=== PATIENT | male | born 1940 | race Caucasian/White ===

== ENCOUNTER 2017-07-23 08:05 | Outpatient (POV) | payer MEDICARE, SELFPAY | END 2017-07-23 10:41 | disposition home or self-care (01) | PROVIDERS: Visit Provider Podiatrist | DX: I73.9 Peripheral vascular disease, unspecified (principal); M76.821 Posterior tibial tendinitis, right leg; E11.42 Type 2 diabetes mellitus with diabetic polyneuropathy | CPT/HCPCS: 99212 ==

== ENCOUNTER 2017-09-03 10:30 | Outpatient (RCR) | payer MEDICARE, SELFPAY | END 2017-09-14 | LOC: PT 10:30 | PROVIDERS: Visit Provider Podiatrist | DX: M76.821 Posterior tibial tendinitis, right leg (principal) | CPT/HCPCS: G8978; G8979; G8980; 97010; 97014; 97016; 97033; 97035; 97110; 97162; G0283 ==

== ENCOUNTER → 2017-10-10 08:11 | Outpatient (CLI) | payer MEDICARE, SELFPAY ==
--- NOTE | 2017-10-10 08:17 | US_ITS ---
HISTORY: ITS.REASON: RT UPPER QUAD PAIN ORDERING PHYSICIAN: Thang Hou MD PATIENT AGE: 77 years COMPARISON: None FINDINGS: PANCREAS: Poorly demonstrated due to overlying bowel LIVER: Limited images. Probable small hepatic cyst anteriorly at 12 mm. RIGHT KIDNEY: Unremarkable. Normal size and echogenicity. No hydronephrosis 2.7 cm cyst lower pole right kidney GALLBLADDER: Images of the gallbladder very limited. Gallbladder wall thickening with a small amount pericholecystic fluid. Gallstones are present. Common bile duct is normal at 4 mm. IMPRESSION: Thickened gallbladder wall with small amount pericholecystic fluid with cholelithiasis. Cholecystitis is considered. Correlation with exam needed regarding right upper quadrant pain and tenderness
== END ==
PROVIDERS: Visit Provider Family Medicine
DX: R10.11 Right upper quadrant pain (principal)
CPT/HCPCS: 76705

== ENCOUNTER → 2017-10-16 15:29 | Outpatient (CLI) | payer MEDICARE, SELFPAY ==
[2017-10-16 16:04] LABS: Basophils # 0.1 K/mm3 (0-0.2); Basophils % 0.3 % (0.1-2.0); Eosinophils # 0.2 K/mm3 (0.0-0.4); Eosinophils % 1.5 % (0.1-12.0); Hematocrit 43.5 % (42.0-52.0); Hemoglobin 13.6 g/dL (14.1-18.0); Lymphocytes # 2.5 K/mm3 (0.7-4.5); Lymphocytes % 15.5 K/mm3 (10-50); Mean Corpuscular HGB Conc 31.3 g/dL (31.8-35.4); Mean Corpuscular Hemoglobin 27.7 pg (27.0-31.2); Mean Corpuscular Volume 88.4 fl (80-94); Mean Platelet Volume 7.2 fl (7.4-10.4); Monocytes # 0.7 K/mm3 (0.1-1.0); Monocytes % 4.2 % (1.7-9.3); Neutrophils # 12.5 K/mm3 (1.8-7.8); Neutrophils % 78.5 % (37.0-80.0); Platelet Count 516 K/mm3 (142-424); Red Blood Count 4.92 M/mm3 (4.60-6.20); Red Cell Distribution Width 14.1 % (11.5-17.5); White Blood Count 15.9 K/mm3 (4.8-10.8)
[2017-10-16 16:06] LABS: MANUAL DIFFERENTIAL MANUAL DIFFERENTIAL (MANUAL DIFF)
[2017-10-16 18:22] LABS: Alanine Aminotransferase 36 U/L (12-78); Albumin Level 2.8 gm/dL (3.4-5.0); Albumin/Globulin Ratio 0.7 (1.1-1.8); Alkaline Phosphatase 100 U/L (46-116); Amylase 133 U/L (25-125); Aspartate Amino Transferase 27 U/L (15-37); Bilirubin,Total 0.2 mg/dL (0.2-1.0); Blood Urea Nitrogen 28 mg/dL (7-18); Calcium 8.9 mg/dL (8.5-10.1); Carbon Dioxide 28 mmol/L (21.0-32.0); Chloride 107 mmol/L (98-107); Creatinine,Serum 1.85 mg/dL (0.70-1.30); Estimated Glomerular Filt Rate 36 ml/min (>60); GFR (African American) 43 ML/MIN (>60); Globulin 3.9 gm/dl (1.3-3.2); Glucose 70 mg/dL (74-106); Sodium 142 mmol/L (136-145); Total Protein,Serum 6.7 gm/dL (6.4-8.2)
[2017-10-16 18:46] LABS: Lymphocytes % 19 % (10-50); Monocytes % 4 % (2-9); Neutrophils % 77 % (42-76); Platelet Estimate Moderate Increase; RBC Morphology Normal; Total Cells Counted 100
== END ==
PROVIDERS: PCP Family Medicine; Visit Provider Surgery
DX: K80.12 Calculus of gallbladder with acute and chronic cholecystitis without obstruction (principal)
CPT/HCPCS: 80053; 82150; 85007; 85025; 93005

== ENCOUNTER → 2017-10-22 07:11 | Outpatient (CLI) | payer MEDICARE, SELFPAY ==
[2017-10-22 07:42] LABS: Basophils # 0.1 K/mm3 (0-0.2); Basophils % 0.5 % (0.1-2.0); Eosinophils # 0.2 K/mm3 (0.0-0.4); Eosinophils % 1.4 % (0.1-12.0); Hematocrit 44.7 % (42.0-52.0); Hemoglobin 14.3 g/dL (14.1-18.0); Lymphocytes # 2.4 K/mm3 (0.7-4.5); Lymphocytes % 17.5 K/mm3 (10-50); Mean Corpuscular HGB Conc 31.9 g/dL (31.8-35.4); Mean Corpuscular Hemoglobin 28.5 pg (27.0-31.2); Mean Corpuscular Volume 89.4 fl (80-94); Mean Platelet Volume 7.4 fl (7.4-10.4); Monocytes # 0.8 K/mm3 (0.1-1.0); Monocytes % 5.8 % (1.7-9.3); Neutrophils # 10.3 K/mm3 (1.8-7.8); Neutrophils % 74.7 % (37.0-80.0); Platelet Count 344 K/mm3 (142-424); Red Cell Distribution Width 14.4 % (11.5-17.5); White Blood Count 13.7 K/mm3 (4.8-10.8)
== END ==
PROVIDERS: PCP Family Medicine; Visit Provider Surgery
DX: K80.12 Calculus of gallbladder with acute and chronic cholecystitis without obstruction (principal)
CPT/HCPCS: 36415; 85025

== ENCOUNTER 2017-10-26 14:23 | Inpatient (IN) | payer MEDICARE, SELFPAY ==
[2017-10-23 13:46] VITALS: BMI 26.2
[2017-10-26] VITALS (22 sets, daily range): BP systolic 116–167; BP diastolic 63–89; PULSE 66–76; RESP 12–18; TEMP 36.4–43; O2SAT 92–97; BMI 26.6
--- NOTE | 2017-10-26 10:52 | P.PN_ITS ---
[facility] Anesthesia Checklist - Patient Identification Patient Identification: Arm Band, Verbal (Name & ) - Structural Data Admitted From: Home Planned Operative Procedure/s: lap choly Consent for Planned Operative Procedure(s) Verified: Yes Verified Documents: Surgical Consent - NPO Status Verified Time NPO: 00:00 - Chart Verification Results Verified: CBC, BMP, ECG - Additional verifications Patient : No Anesthesia Reactions: No Hx Blood Transfusions: No Blood Transfusion Reaction: No Cephalosporin Allergy: No Previous Colonoscopy: No - Cardiovascular Assessment Heart Sounds: S1 & S2 Pulse Strength: Baseline Pulse Rhythm: Regular Peripheral Edema: No - Airway Assessment C-Spine Mobility Assessed: Yes TMJ Mobility Assessed: Yes Dentition: Good Dentition - Neurological Assessment Level of Consciousness: Awake, Alert, Appropriate Hx Seizures: No Numbness or tingling in extremities: No - Anesthesia Plan Anesthesia Risk discussed: Yes ASA Class: III Anesthesia Type: General [facility] Anesthesia HX I have reviewed the patient's past medical history: Yes Medical History: Reports:: Diabetes Mellitus Type 2 (meds only), Hypertension, Nephritis Denies:: Cancer, Diabetes Mellitus Type 1, MRSA Other Medical History: Reports: Arthritis Laterality Cases: Bilateral: Arthroscopy Knee Other Surgeries: Yes: Colonoscopy, EGD, Other (back) Amputation: No Fractures: No *Family Hx:: Unable to obtain
[2017-10-26 11:06] LABS: POC Glucose,Bedside 135 mg/dL
--- NOTE | 2017-10-26 11:15 | SUR.PREOP ---
pt ambulated w/assist to br, unable to void at this time
--- NOTE | 2017-10-26 14:02 | SUR.OPER ---
Addendum entered by Andree Briseno RN 10/26/17 14:17: 1415-FAMILY UPDATED PER AGUSTÍN ZULETA Original Note: 1355-FAMILY UPDATED AT THIS TIME PER AGUSTÍN TO
--- NOTE | 2017-10-26 14:51 | P.OP_ITS ---
Date of procedure: 10/26/17 Pre-op Diagnosis:: Acute and chronic calculus cholecystitis Post-op diagnosis:: other (Necrotic/gangrenous calculus cholecystitis) Procedure performed:: Laparoscopic cholecystectomy Surgeon:: Brennen Chopra MD Conference Center Manager(s):: Dr. Maximilian Zhao CHANGE MANAGEMENT MANAGER:: Bubba Castaneda Anesthesia: GETA Estimated blood loss (mL): 50 Operative findings:: Severe cholecystitis with fulminant necrosis/gangrene Entire right upper quadrant severely inflamed Domo-Mcqueen drains placed The dissection was very difficult throughout the procedure. Converting to an open cholecystectomy was considered; however, the decision was made to proceed laparoscopically because progress was continually made and (more importantly) converting to open was not felt to likely increase safety. The gallbladder was transected at the infundibulum and just to the left of this transection site a small area of continual bile leak was noted. This was felt to most likely represent the cystic duct with severe adherence to the posterior tissue as opposed to hepatic duct or common bile duct. This area was carefully dissected and clips were placed. The remaining stump after infundibulum transection was controlled with Endoloops ?2 Operative note:: After informed consent was obtained, the patient was taken to the operating room and placed in the supine position. General anesthesia was induced and his abdomen was prepped and draped in a sterile fashion. After infiltration with local anesthetic a supraumbilical incision was made. A Veress needle was placed in position. The abdomen was insufflated. A 12 mm optical trocar was placed in the subxiphoid position and 2 additional 5 mm trocars placed in the right upper quadrant. Evaluation revealed severe inflammation and fat stranding. The gallbladder was initially not visible. After extensive dissection and apparent necrotic/gangrenous gallbladder was carefully elevated. The dissection was exceptionally difficult, but conversion to open was not deemed to increase safety. The infundibulum was not easily identifiable. Careful dissection proceeded and the infundibulum was transected. The occipital portion was controlled with Endoloops (?2). Just to the left side of this transection site a small area of bilious leak was noted and careful inspection revealed what was felt to be most likely an adherent cystic duct. Placement of a cholangiogram catheter was not deemed safe and this tissue was carefully elevated as clips were placed. Close follow-up of the patient's liver function tests/bilirubin will be ongoing and consideration of hepatobiliary scan will also be ongoing. The gallbladder was removed from the liver margin utilizing harmonic joe. It was placed in a retrieval bag and removed through the subxiphoid trocar site. 2 separate #10 Domo-Mcqueen drains were placed in the gallbladder fossa and exited through the right upper quadrant trocar sites. Pneumoperitoneum was released as the remaining trocars were removed. Fascia at the subxiphoid trocar site was reapproximated with interrupted Ethibond. Skin was closed with 4-0 Monocryl. The drains were secured with nylon and dressings were applied. The patient's anesthetic agents were reversed and he was extubated prior to transfer to recovery. Pathology: other (Bladder and contents) Condition: stable Disposition: floor (The patient will be admitted to the MedSurg unit for ongoing postoperative care) Specimens:: Gallbladder and contents Complications:: No immediate
--- NOTE | 2017-10-26 14:56 | HMH.ANESI ---
[facility] Anesthesia Record Part I Intake, IV Amount: 2,800 Estimated blood loss (mL): 50 Urine output (mL): 200 Blood Pressure: 133/75 SaO2: 97 Pulse Rate: 75 Respiratory Rate: 12 Temperature: 98.3 F Patient is:: Drowsy, Stable Stable to PACU at:: 14:55
--- NOTE | 2017-10-26 14:57 | HMH.ANESII ---
[facility] Anesthesia Record Part II Discharge Time: 15:25 Destination: floor PACU nurse assessment reviewed?: Yes Patient Condition:: Good Anesthesia Complications:: None
[2017-10-26 16:23] LABS: Microscopic, Urine URINE MICROSCOPIC (MICROSCOPIC)
[2017-10-26 16:26] LABS: Appearance,Urine CLOUDY (Clear); Bilirubin,Urine Negative (Negative); Blood, Urine TRACE-L (Negative); Color,Urine YELLOW (Yellow); Glucose,Urine (UA) Negative (Negative); Ketones,Urine Negative (Negative); Leukocyte Esterase,Urine 1+ (Negative); Nitrate,Urine Negative (Negative); Protein,Urine 3+ (Negative); Specific Gravity, Urine >= 1.030 (1.005-1.030); Urobilinogen,Urine 0.2 EU/dl (0.2)
[2017-10-26 17:06] LABS: RBC,Urine Occasional #/hpf (0-3); WBC,Urine 50-100 #/hpf (0-3)
[2017-10-26 17:07] LABS: Bacteria,Urine 2+ /lpf; Squamous Epithelial Cell,Urine Occasional #/hpf (0-5)
--- NOTE | 2017-10-26 17:46 | SUR.PHASEI ---
10/26/17 1556 Pt transported to room 215 per AGUSTÍN Evans and JannyRN at this time. Pt family at bedside. Pt left in care of AGUSTÍN Vasquez at bedside/stable. Pt awakens and talks with staff/family and returns to sleeping. Pt transported on O2 at 2lpm per nc d/t drowsiness, even though sats stable 92-94% on room air sat checks. Pt received no medication while in PACU.
[2017-10-26 22:28] LABS: POC Glucose,Bedside 215 mg/dL
[2017-10-27] VITALS (7 sets, daily range): BP systolic 154–172; BP diastolic 75–90; PULSE 68–75; RESP 16–20; TEMP 36.6–36.8; O2SAT 93–96
--- NOTE | 2017-10-27 06:07 | PC.NURSE ---
no changes noted since previous assessment, pt has not slept well this shift, pt c/o pain which was relieved with PRN pain medication per MAR, rhonchi noted but cleared with cough and incentive spirometer well, by maintaining O2 sats at or above 90 on 2L NC, bowel sounds are hypoactive, [address] draining sanguineous fluid, jameson in place draining clear yellow urine, bowel sounds are hypoactive, no acute distress noted at this time, will continue to monitor.
[2017-10-27 06:27] LABS: Basophils % 0.1 % (0.1-2.0); Eosinophils % 0.1 % (0.1-12.0); Hematocrit 39.9 % (42.0-52.0); Hemoglobin 12.8 g/dL (14.1-18.0); Lymphocytes # 0.9 K/mm3 (0.7-4.5); Lymphocytes % 7.1 K/mm3 (10-50); MANUAL DIFFERENTIAL MANUAL DIFFERENTIAL (MANUAL DIFF); Mean Corpuscular HGB Conc 32.2 g/dL (31.8-35.4); Mean Corpuscular Hemoglobin 28.6 pg (27.0-31.2); Mean Platelet Volume 7.9 fl (7.4-10.4); Monocytes # 0.3 K/mm3 (0.1-1.0); Monocytes % 2.6 % (1.7-9.3); Neutrophils # 11.7 K/mm3 (1.8-7.8); Neutrophils % 90.3 % (37.0-80.0); Platelet Count 184 K/mm3 (142-424); Red Blood Count 4.49 M/mm3 (4.60-6.20); Red Cell Distribution Width 14.3 % (11.5-17.5); White Blood Count 12.9 K/mm3 (4.8-10.8)
[2017-10-27 06:31] LABS: Alanine Aminotransferase 215 U/L (12-78); Albumin Level 2.4 gm/dL (3.4-5.0); Albumin/Globulin Ratio 0.6 (1.1-1.8); Alkaline Phosphatase 164 U/L (46-116); Anion Gap 12.3 mEq/L (5-15); Aspartate Amino Transferase 243 U/L (15-37); Bilirubin,Total 1.7 mg/dL (0.2-1.0); Blood Urea Nitrogen 25 mg/dL (7-18); Calcium 8.4 mg/dL (8.5-10.1); Carbon Dioxide 27 mmol/L (21.0-32.0); Chloride 105 mmol/L (98-107); Creatinine Clearance Estimated 44 mL/min (0-300); Creatinine,Serum 1.79 mg/dL (0.70-1.30); Estimated Glomerular Filt Rate 37 ml/min (>60); GFR (African American) 45 ML/MIN (>60); Globulin 3.8 gm/dl (1.3-3.2); Glucose 201 mg/dL (74-106); Potassium 4.3 mmoL/L (3.5-5.1); Sodium 140 mmol/L (136-145); Total Protein,Serum 6.2 gm/dL (6.4-8.2)
[2017-10-27 06:51] LABS: POC Glucose,Bedside 187 mg/dL
[2017-10-27 07:37] LABS: Lymphocytes % 5 % (10-50); Monocytes % 4 % (2-9); Neutrophils % 89 % (42-76); Platelet Estimate Normal; RBC Morphology Normal; Total Cells Counted 100
--- NOTE | 2017-10-27 08:46 | P.PN_ITS ---
Subjective Patient reports: feels better Exam Vital signs and Labs for Last 24 Hours: Temp Pulse Resp BP Pulse Ox 97.8 F 75 20 158/80 96 10/27/17 07:31 10/27/17 07:31 10/27/17 07:31 10/27/17 07:31 10/27/17 07:31 Laboratory Results - last 24 hr 10/26/17 10:52: POC Glucose 135 10/26/17 15:00: Urine Color Yellow, Urine Appearance Cloudy, Urine pH 6.0, Ur Specific Economy >= 1.030, Urine Protein 3+, Urine Glucose (UA) Negative, Urine Ketones Negative, Urine Blood Trace-l, Urine Nitrate Negative, Urine Bilirubin Negative, Urine Urobilinogen 0.2, Ur Leukocyte Esterase 1+ A, Urine RBC Occasional, Urine WBC 50-100, Ur Squamous Epith Cells Occasional, Urine Bacteria 2+ 10/26/17 22:00: POC Glucose 215 10/27/17 05:40: WBC 12.9 H, RBC 4.49 L, Hgb 12.8 L, Hct 39.9 L, MCV 89.0, MCH 28.6, MCHC 32.2, RDW 14.3, Plt Count 184, MPV 7.9, Neut % (Auto) 90.3 H, Lymph % (Auto) 7.1 L, [place] % (Auto) 2.6, Eos % (Auto) 0.1, Baso % (Auto) 0.1, Neut # ( Auto) 11.7 H, Lymph # (Auto) 0.9, [place] # (Auto) 0.3, Eos # (Auto) 0.0, Baso # ( Auto) 0.0, Total Counted 100, Neutrophils % (Manual) 89 H, Band Neutrophils % 1.0, Lymphocytes % (Manual) 5 L, Monocytes % (Manual) 4, Metamyelocytes % 1.0, Platelet Estimate Normal, RBC Morphology Normal 10/27/17 05:40: Sodium 140, Potassium 4.3, Chloride 105, Carbon Dioxide 27, Anion Gap 12.3, BUN 25 H, Creatinine 1.79 H, Estimated Creat Clear 44, Estimated GFR 37 L, Est GFR ( Amer) 45 L, Glucose 201 H, Calcium 8.4 L, Total Bilirubin 1.7 H, AST 243 H, ALT 215 H, Alkaline Phosphatase 164 H, Total Protein 6.2 L, Albumin 2.4 L, Globulin 3.8 H, Albumin/Globulin Ratio 0.6 L 10/27/17 06:41: POC Glucose 187 I & O for Last 24 hours: Intake & Output 10/24/17 10/25/17 10/26/17 10/27/17 11:59 11:59 11:59 11:59 Intake Total 4503 / 4503 Output Total 960 / 960 Balance 3543 / 3543 Weight 193 lb 196 lb 3 oz Microbiology Reports for the Last 24 Hours: Microbiology 10/26/17 15:00 Urine,Catheterized Urine Culture - Preliminary Gram Positive Cocci - Constitutional no acute distress - *Routine Respiratory Exam Absent: respiratory distress - *Routine Cardiovascular Exam Present: RRR - *Routine Abdominal Exam Present: soft Comments: ABDIRIZAK drains with serosanguinous output Progress Note: A&P (1) Acute calculous cholecystitis Status: Acute Assessment and plan: Gangrenous/necrotic cholecystitis Continue abx Continue Jameson catheter for now for improved output accuracy Ambulate Repeat CBC/CMP in AM Current Visit: Yes (2) UTI (urinary tract infection) Status: Acute Assessment and plan: continue abx continue jameson for now for decompression...likely remove tomorrow Current Visit: Yes
--- NOTE | 2017-10-27 15:02 | P.CONPHA_ITS ---
[facility] Pharmacy VTE Monitoring - Patient Demographics Admission date: 10/26/17 Report Date: 10/27/17 Time: 15:02 Allergies/Adverse Reactions: Patient Allergies levofloxacin Allergy (Mild, Verified 10/23/17 13:34) I-HIVES/RASH nitrofurantoin Allergy (Unknown, Verified 10/23/17 13:34) Penicillins Allergy (Unknown, Verified 10/23/17 13:34) I-RASH Height: 1.83 m Weight: 88.989 kg Patient Problems: Current Active Problems Acute calculous cholecystitis (Acute) UTI (urinary tract infection) (Acute) - VTE Risk Labs: VTE Related Lab Results Hgb 12.8 g/dL (14.1-18.0) L 10/27/17 05:40 Hct 39.9 % (42.0-52.0) L 10/27/17 05:40 Plt Count 184 K/mm3 (142-424) 10/27/17 05:40 BUN 25 mg/dL (7-18) H 10/27/17 05:40 Creatinine 1.79 mg/dL (0.70-1.30) H 10/27/17 05:40 Estimated Creat Clear 44 mL/min (0-300) 10/27/17 05:40 Was VTE Risk Assessment Performed: Yes VTE Score: 3 VTE Risk Level: Low Risk - Prophylaxis VTE Prophylaxis Ordered?: Yes Types of VTE Prophylaxis: IPCS Knee High Location of Applied Device: Bilateral Lower Extremeties Pharmacologic Type: Enoxaparin
[2017-10-27 21:21] LABS: POC Glucose,Bedside 254 mg/dL
[2017-10-27 21:21] LABS: POC Glucose,Bedside 239 mg/dL
[2017-10-27 21:21] LABS: POC Glucose,Bedside 269 mg/dL
[2017-10-28] VITALS (8 sets, daily range): BP systolic 157–200; BP diastolic 80–110; PULSE 68–77; RESP 14–20; TEMP 36.6–36.9; O2SAT 94–95
--- NOTE | 2017-10-28 03:09 | PC.NURSE ---
PT RESTED WELL THIS SHIFT. PT BOWEL SOUNDS ACTIVE IN ALL 4 QUADS, 4 INCISIONS NOTED TO ABM, DX CDI, SMALL AMOUNT OF BLOOD NOTED AROUND ABDIRIZAK DRAINS, SEROSANGUINEOUS WITH SCANT AMOUNT OF BROWN FLUID. PT IS TOLERATING RA WELL, SATS ARE IN 90'S. POSTERIOR EXPIRATORY RHONCHI NOTED. THOMPSON PATENT, DRAINING CLEAR YELLOW URINE. PT AMBULATED LENGTH OF HALLWAY WELL WITH STANDBY ASSIST. PT STATED HE PAIN IS BETTER TODAY. VSS. NO ACUTE DISTRESS NOTED AT THIS TIME. WILL CONT. TO MONITOR.
--- NOTE | 2017-10-28 04:37 | PC.NURSE ---
Addendum entered by Tonya Cochran RN 10/28/17 04:40: AT 0425 SRNA NOTIFIED RN OF AUTOMATIC BP OF 201/108. RN OBTAINED MANUAL CUFF BP OF 200/110. DR. TOLENTINO NOTIFIED OF BP AT 0431. LABETALOL 10MG IV ONCE ORDERED. Original Note: AT 0425 SRNA NOTIFIED RN OF AUTOMATIC BP OF 201/108. RN OBTAINED MANUAL CUFF BP OF 200/110. DR. TOLENTINO NOTIFIED OF BP AT 0431. IS TO ENTER PT HOME MEDS FOR BP.
[2017-10-28 06:28] LABS: Basophils % 0.1 % (0.1-2.0); Eosinophils % 0.2 % (0.1-12.0); Hematocrit 39.5 % (42.0-52.0); Hemoglobin 12.7 g/dL (14.1-18.0); Lymphocytes % 7.3 K/mm3 (10-50); Mean Corpuscular Hemoglobin 28.9 pg (27.0-31.2); Mean Corpuscular Volume 90.3 fl (80-94); Mean Platelet Volume 8.2 fl (7.4-10.4); Monocytes # 0.7 K/mm3 (0.1-1.0); Neutrophils # 11.4 K/mm3 (1.8-7.8); Neutrophils % 87.4 % (37.0-80.0); Platelet Count 153 K/mm3 (142-424); Red Blood Count 4.38 M/mm3 (4.60-6.20); Red Cell Distribution Width 14.3 % (11.5-17.5); White Blood Count 13.1 K/mm3 (4.8-10.8)
[2017-10-28 06:31] LABS: MANUAL DIFFERENTIAL MANUAL DIFFERENTIAL (MANUAL DIFF)
[2017-10-28 06:40] LABS: Albumin Level 2.2 gm/dL (3.4-5.0); Albumin/Globulin Ratio 0.8 (1.1-1.8); Alkaline Phosphatase 203 U/L (46-116); Anion Gap 12.9 mEq/L (5-15); Bilirubin,Total 1.2 mg/dL (0.2-1.0); Blood Urea Nitrogen 27 mg/dL (7-18); Calcium 8.2 mg/dL (8.5-10.1); Carbon Dioxide 26 mmol/L (21.0-32.0); Chloride 105 mmol/L (98-107); Creatinine Clearance Estimated 54 mL/min (0-300); Creatinine,Serum 1.45 mg/dL (0.70-1.30); Estimated Glomerular Filt Rate 47 ml/min (>60); GFR (African American) 57 ML/MIN (>60); Globulin 2.9 gm/dl (1.3-3.2); Glucose 204 mg/dL (74-106); Potassium 3.9 mmoL/L (3.5-5.1); Sodium 140 mmol/L (136-145); Total Protein,Serum 5.1 gm/dL (6.4-8.2)
[2017-10-28 06:48] LABS: POC Glucose,Bedside 183 mg/dL
[2017-10-28 07:01] LABS: Alanine Aminotransferase 559 U/L (12-78); Aspartate Amino Transferase 542 U/L (15-37)
[2017-10-28 07:56] LABS: Lymphocytes % 3 % (10-50); Monocytes % 6 % (2-9); Neutrophils % 91 % (42-76); Platelet Estimate Normal; Total Cells Counted 100
[2017-10-28 07:57] LABS: RBC Morphology Normal
--- NOTE | 2017-10-28 08:45 | HMH.GSPN ---
Subjective Patient reports: no new complaints, feels better Exam Vital signs and Labs for Last 24 Hours: Temp Pulse Resp BP Pulse Ox 98.2 F 77 20 191/89 95 10/28/17 07:12 10/28/17 07:12 10/28/17 07:12 10/28/17 07:12 10/28/17 07:12 Laboratory Results - last 24 hr 10/27/17 11:39: POC Glucose 269 10/27/17 16:30: POC Glucose 254 10/27/17 20:57: POC Glucose 239 10/28/17 05:55: WBC 13.1 H, RBC 4.38 L, Hgb 12.7 L, Hct 39.5 L, MCV 90.3, MCH 28.9, MCHC 32.0, RDW 14.3, Plt Count 153, MPV 8.2, Neut % (Auto) 87.4 H, Lymph % (Auto) 7.3 L, [place] % (Auto) 5.0, Eos % (Auto) 0.2, Baso % (Auto) 0.1, Neut # (Auto) 11.4 H, Lymph # (Auto) 1.0, [place] # (Auto) 0.7, Eos # (Auto) 0.0, Baso # (Auto) 0.0, Total Counted 100, Neutrophils % (Manual) 91 H, Lymphocytes % (Manual) 3 L, Monocytes % (Manual) 6, Platelet Estimate Normal, RBC Morphology Normal 10/28/17 05:55: Sodium 140, Potassium 3.9, Chloride 105, Carbon Dioxide 26, Anion Gap 12.9, BUN 27 H, Creatinine 1.45 H, Estimated Creat Clear 54, Estimated GFR 47 L, Est GFR ( Amer) 57 L D, Glucose 204 H, Calcium 8.2 L, Total Bilirubin 1.2 H, AST 542 H* D, ALT 559 H*, Alkaline Phosphatase 203 H, Total Protein 5.1 L, Albumin 2.2 L, Globulin 2.9, Albumin/Globulin Ratio 0.8 L 10/28/17 06:41: POC Glucose 183 I & O for Last 24 hours: Intake & Output 10/25/17 10/26/17 10/27/17 10/28/17 11:59 11:59 11:59 11:59 Intake Total 4503 / 4503 4205 / 4205 Output Total 960 / 960 2910 / 2910 Balance 3543 / 3543 1295 / 1295 Weight 196 lb 3 oz 196 lb 3 oz Microbiology Reports for the Last 24 Hours: Microbiology 10/26/17 15:00 Urine,Catheterized Urine Culture - Final Enterococcus faecalis Narrative: The patient's beta-glenroy was started postoperatively; however, his remaining antihypertensives were initially held. He did develop significant hypertension last night and labetalol was ordered. The remainder of his antihypertensives was also ordered. - Constitutional no acute distress - *Routine Respiratory Exam Absent: respiratory distress - *Routine Cardiovascular Exam Present: RRR - *Routine Abdominal Exam Present: soft Comments: ABDIRIZAK drainage output serosanguineous. Incisions clean, dry, and intact. No erythema. Progress Note: A&P (1) Acute calculous cholecystitis Status: Acute Assessment and plan: Continue IV antibiotics Repeat CBC/CMP in the morning Current Visit: Yes (2) UTI (urinary tract infection) Status: Acute Assessment and plan: Remove Moody catheter Complete antibiotic therapy Current Visit: Yes
--- NOTE | 2017-10-28 08:48 | P.PN_ITS ---
Subjective Patient reports: no new complaints, feels better Exam Vital signs and Labs for Last 24 Hours: Temp Pulse Resp BP Pulse Ox 98.2 F 77 20 191/89 95 10/28/17 07:12 10/28/17 07:12 10/28/17 07:12 10/28/17 07:12 10/28/17 07:12 Laboratory Results - last 24 hr 10/27/17 11:39: POC Glucose 269 10/27/17 16:30: POC Glucose 254 10/27/17 20:57: POC Glucose 239 10/28/17 05:55: WBC 13.1 H, RBC 4.38 L, Hgb 12.7 L, Hct 39.5 L, MCV 90.3, MCH 28.9, MCHC 32.0, RDW 14.3, Plt Count 153, MPV 8.2, Neut % (Auto) 87.4 H, Lymph % (Auto) 7.3 L, [place] % (Auto) 5.0, Eos % (Auto) 0.2, Baso % (Auto) 0.1, Neut # ( Auto) 11.4 H, Lymph # (Auto) 1.0, [place] # (Auto) 0.7, Eos # (Auto) 0.0, Baso # ( Auto) 0.0, Total Counted 100, Neutrophils % (Manual) 91 H, Lymphocytes % (Manual ) 3 L, Monocytes % (Manual) 6, Platelet Estimate Normal, RBC Morphology Normal 10/28/17 05:55: Sodium 140, Potassium 3.9, Chloride 105, Carbon Dioxide 26, Anion Gap 12.9, BUN 27 H, Creatinine 1.45 H, Estimated Creat Clear 54, Estimated GFR 47 L, Est GFR ( Amer) 57 L D, Glucose 204 H, Calcium 8.2 L , Total Bilirubin 1.2 H, AST 542 H* D, ALT 559 H*, Alkaline Phosphatase 203 H, Total Protein 5.1 L, Albumin 2.2 L, Globulin 2.9, Albumin/Globulin Ratio 0.8 L 10/28/17 06:41: POC Glucose 183 I & O for Last 24 hours: Intake & Output 10/25/17 10/26/17 10/27/17 10/28/17 11:59 11:59 11:59 11:59 Intake Total 4503 / 4503 4205 / 4205 Output Total 960 / 960 2910 / 2910 Balance 3543 / 3543 1295 / 1295 Weight 196 lb 3 oz 196 lb 3 oz Microbiology Reports for the Last 24 Hours: Microbiology 10/26/17 15:00 Urine,Catheterized Urine Culture - Final Enterococcus faecalis Narrative: The patient's beta-glenroy was started postoperatively; however, his remaining antihypertensives were initially held. He did develop significant hypertension last night and labetalol was ordered. The remainder of his antihypertensives was also ordered. - Constitutional no acute distress - *Routine Respiratory Exam Absent: respiratory distress - *Routine Cardiovascular Exam Present: RRR - *Routine Abdominal Exam Present: soft Comments: ABDIRIZAK drainage output serosanguineous. Incisions clean, dry, and intact. No erythema. Progress Note: A&P (1) Acute calculous cholecystitis Status: Acute Assessment and plan: Continue IV antibiotics Repeat CBC/CMP in the morning Current Visit: Yes (2) UTI (urinary tract infection) Status: Acute Assessment and plan: Remove Moody catheter Complete antibiotic therapy Current Visit: Yes
[2017-10-28 11:40] LABS: POC Glucose,Bedside 251 mg/dL
--- NOTE | 2017-10-28 13:37 | HMH.PHACONS ---
- Pharmacy Consult Date: 10/28/17 Time: 13:37 Referring provider: DR. TOLENTINO Reason for Consult:: VANCOMYCIN DOSING Allergies and ADEs:: Allergies Allergy/AdvReac Type Severity Reaction Status Date / Time levofloxacin Allergy Mild I-HIVES/VICKY Verified 10/23/17 13:34 H nitrofurantoin Allergy Unknown Verified 10/23/17 13:34 Penicillins Allergy Unknown I-RASH Verified 10/23/17 13:34 Home Medications:: Home Medications Medication Instructions Recorded Confirmed Type atorvastatin 10 mg tablet 10 mg PO HS 10/16/17 10/27/17 History carvedilol 25 mg tablet 25 mg PO BID 10/16/17 10/26/17 History cholecalciferol (vitamin D3) 2,000 2,000 unit PO DAILY 10/16/17 10/27/17 History unit capsule chromium 200 mcg tablet 200 mcg PO DAILY 10/16/17 10/27/17 History diltiazem ER 300 mg 300 mg PO DAILY 10/16/17 10/27/17 History tablet,extended release 24 hr doxazosin 4 mg tablet 4 mg PO BID 10/16/17 10/27/17 History finasteride 5 mg tablet 5 mg PO DAILY 10/16/17 10/27/17 History glimepiride 4 mg tablet 4 mg PO BID 10/16/17 10/27/17 History hyoscyamine sulfate 0.125 mg tablet 0.125 mg PO QID 10/16/17 10/23/17 History losartan 50 mg tablet 50 mg PO DAILY 10/16/17 10/27/17 History montelukast 10 mg tablet 10 mg PO HS 10/16/17 10/27/17 History paroxetine 10 mg tablet 10 mg PO DAILY 10/16/17 10/27/17 History sitagliptin 50 mg tablet 50 mg PO DAILY 10/16/17 10/27/17 History vitamin E 200 unit capsule 200 unit PO DAILY 10/16/17 10/27/17 History Hydralazine HCl [Hydralazine HCl 25 mg PO TID 10/27/17 10/27/17 History 25mg Tablet] Height: 1.83 m Weight: 88.989 kg Laboratory Results:: Laboratory Results - last 24 hr 10/27/17 11:39: POC Glucose 269 10/27/17 16:30: POC Glucose 254 10/27/17 20:57: POC Glucose 239 10/28/17 05:55: WBC 13.1 H, RBC 4.38 L, Hgb 12.7 L, Hct 39.5 L, MCV 90.3, MCH 28.9, MCHC 32.0, RDW 14.3, Plt Count 153, MPV 8.2, Neut % (Auto) 87.4 H, Lymph % (Auto) 7.3 L, [place] % (Auto) 5.0, Eos % (Auto) 0.2, Baso % (Auto) 0.1, Neut # (Auto) 11.4 H, Lymph # (Auto) 1.0, [place] # (Auto) 0.7, Eos # (Auto) 0.0, Baso # (Auto) 0.0, Total Counted 100, Neutrophils % (Manual) 91 H, Lymphocytes % (Manual) 3 L, Monocytes % (Manual) 6, Platelet Estimate Normal, RBC Morphology Normal 10/28/17 05:55: Sodium 140, Potassium 3.9, Chloride 105, Carbon Dioxide 26, Anion Gap 12.9, BUN 27 H, Creatinine 1.45 H, Estimated Creat Clear 54, Estimated GFR 47 L, Est GFR ( Amer) 57 L D, Glucose 204 H, Calcium 8.2 L, Total Bilirubin 1.2 H, AST 542 H* D, ALT 559 H*, Alkaline Phosphatase 203 H, Total Protein 5.1 L, Albumin 2.2 L, Globulin 2.9, Albumin/Globulin Ratio 0.8 L 10/28/17 06:41: POC Glucose 183 10/28/17 11:29: POC Glucose 251 Medical History: Reports:: Hyperlipidemia, Hypertension, Nephritis Denies:: Cancer, Diabetes Mellitus Type 1, Diabetes Mellitus Type 2, MRSA, Seizures Assessment and Plan (1) Acute calculous cholecystitis Current visit: Yes Status: Acute Category: Medical Code(s): K80.00 - Calculus of gallbladder with acute cholecystitis without obstruction (2) UTI (urinary tract infection) Current visit: Yes Status: Acute Category: Medical Code(s): N39.0 - Urinary tract infection, site not specified - Assessment and plan all Dx Assessment and Plan for all problems:: BASED ON PATIENT'S FACTORS, RECOMMEND STARTING VANCOMYCIN 1750 MG Q24H AT THIS TIME FOR E. FAECALIS + URINE CULTURE. PATIENT WITH MULTIPLE ALLERGIES TO ABX INCLUDING LEVOFLOXACIN, NITROFURANTOIN AND PCN. PHARMACY WILL FOLLOW DAILY AND ADJUST APPROPRIATE. GREG COLÓN, PHARMD
--- NOTE | 2017-10-28 13:40 | P.CONPHA_ITS ---
- Pharmacy Consult Date: 10/28/17 Time: 13:37 Referring provider: DR. TOLENTINO Reason for Consult:: VANCOMYCIN DOSING Allergies and ADEs:: Allergies Allergy/AdvReac Type Severity Reaction Status Date / Time levofloxacin Allergy Mild I-HIVES/VICKY Verified 10/23/17 13:34 H nitrofurantoin Allergy Unknown Verified 10/23/17 13:34 Penicillins Allergy Unknown I-RASH Verified 10/23/17 13:34 Home Medications:: Home Medications Medication Instructions Recorded Confirmed Type atorvastatin 10 mg tablet 10 mg PO HS 10/16/17 10/27/17 History carvedilol 25 mg tablet 25 mg PO BID 10/16/17 10/26/17 History cholecalciferol (vitamin D3) 2,000 2,000 unit PO DAILY 10/16/17 10/27/17 History unit capsule chromium 200 mcg tablet 200 mcg PO DAILY 10/16/17 10/27/17 History diltiazem ER 300 mg 300 mg PO DAILY 10/16/17 10/27/17 History tablet,extended release 24 hr doxazosin 4 mg tablet 4 mg PO BID 10/16/17 10/27/17 History finasteride 5 mg tablet 5 mg PO DAILY 10/16/17 10/27/17 History glimepiride 4 mg tablet 4 mg PO BID 10/16/17 10/27/17 History hyoscyamine sulfate 0.125 mg tablet 0.125 mg PO QID 10/16/17 10/23/17 History losartan 50 mg tablet 50 mg PO DAILY 10/16/17 10/27/17 History montelukast 10 mg tablet 10 mg PO HS 10/16/17 10/27/17 History paroxetine 10 mg tablet 10 mg PO DAILY 10/16/17 10/27/17 History sitagliptin 50 mg tablet 50 mg PO DAILY 10/16/17 10/27/17 History vitamin E 200 unit capsule 200 unit PO DAILY 10/16/17 10/27/17 History Hydralazine HCl [Hydralazine HCl 25 mg PO TID 10/27/17 10/27/17 History 25mg Tablet] Height: 1.83 m Weight: 88.989 kg Laboratory Results:: Laboratory Results - last 24 hr 10/27/17 11:39: POC Glucose 269 10/27/17 16:30: POC Glucose 254 10/27/17 20:57: POC Glucose 239 10/28/17 05:55: WBC 13.1 H, RBC 4.38 L, Hgb 12.7 L, Hct 39.5 L, MCV 90.3, MCH 28.9, MCHC 32.0, RDW 14.3, Plt Count 153, MPV 8.2, Neut % (Auto) 87.4 H, Lymph % (Auto) 7.3 L, [place] % (Auto) 5.0, Eos % (Auto) 0.2, Baso % (Auto) 0.1, Neut # ( Auto) 11.4 H, Lymph # (Auto) 1.0, [place] # (Auto) 0.7, Eos # (Auto) 0.0, Baso # ( Auto) 0.0, Total Counted 100, Neutrophils % (Manual) 91 H, Lymphocytes % (Manual ) 3 L, Monocytes % (Manual) 6, Platelet Estimate Normal, RBC Morphology Normal 10/28/17 05:55: Sodium 140, Potassium 3.9, Chloride 105, Carbon Dioxide 26, Anion Gap 12.9, BUN 27 H, Creatinine 1.45 H, Estimated Creat Clear 54, Estimated GFR 47 L, Est GFR ( Amer) 57 L D, Glucose 204 H, Calcium 8.2 L , Total Bilirubin 1.2 H, AST 542 H* D, ALT 559 H*, Alkaline Phosphatase 203 H, Total Protein 5.1 L, Albumin 2.2 L, Globulin 2.9, Albumin/Globulin Ratio 0.8 L 10/28/17 06:41: POC Glucose 183 10/28/17 11:29: POC Glucose 251 Medical History: Reports:: Hyperlipidemia, Hypertension, Nephritis Denies:: Cancer, Diabetes Mellitus Type 1, Diabetes Mellitus Type 2, MRSA, Seizures Assessment and Plan (1) Acute calculous cholecystitis Current visit: Yes Status: Acute Category: Medical Code(s): K80.00 - Calculus of gallbladder with acute cholecystitis without obstruction (2) UTI (urinary tract infection) Current visit: Yes Status: Acute Category: Medical Code(s): N39.0 - Urinary tract infection, site not specified - Assessment and plan all Dx Assessment and Plan for all problems:: BASED ON PATIENT'S FACTORS, RECOMMEND STARTING VANCOMYCIN 1750 MG Q24H AT THIS TIME FOR E. FAECALIS + URINE CULTURE. PATIENT WITH MULTIPLE ALLERGIES TO ABX
[2017-10-28 17:08] LABS: POC Glucose,Bedside 156 mg/dL
--- NOTE | 2017-10-28 19:59 | PC.NURSE ---
REPORT GIVEN TO REINA ACOSTA RN
--- NOTE | 2017-10-28 20:26 | PC.NURSE ---
RN MADE AWARE OF ELEVATED BP
[2017-10-28 22:20] LABS: POC Glucose,Bedside 131 mg/dL
[2017-10-29] VITALS (9 sets, daily range): BP systolic 143–164; BP diastolic 73–91; PULSE 59–77; RESP 16–20; TEMP 36.6–37.1; O2SAT 90–95; BMI 26.5
--- NOTE | 2017-10-29 | PC.NURSE ---
rn did vitals and charted them
--- NOTE | 2017-10-29 03:54 | PC.NURSE ---
no changes noted from previous assessment, pt has rested well this shift, denies pain and SOA, pt continues to maintain O2 sats at or above 90 on room air, rhonchi noted throughout on auscultation, bowel sounds active, pt states abdomen is tender but does not hurt, drains have been draining moderate amounts of serosanguineous fluid with small clots, pt has ambulated the hallway with standby assist and tolerates well, no acute distress noted at this time, call light in reach, will continue to monitor.
[2017-10-29 06:32] LABS: POC Glucose,Bedside 130 mg/dL
[2017-10-29 07:09] LABS: Basophils % 0.2 % (0.1-2.0); Eosinophils # 0.1 K/mm3 (0.0-0.4); Eosinophils % 0.6 % (0.1-12.0); Hematocrit 42.8 % (42.0-52.0); Hemoglobin 13.7 g/dL (14.1-18.0); Lymphocytes # 1.3 K/mm3 (0.7-4.5); Lymphocytes % 11.8 K/mm3 (10-50); Mean Corpuscular HGB Conc 31.9 g/dL (31.8-35.4); Mean Corpuscular Hemoglobin 28.1 pg (27.0-31.2); Mean Corpuscular Volume 88.2 fl (80-94); Mean Platelet Volume 8.1 fl (7.4-10.4); Monocytes # 0.9 K/mm3 (0.1-1.0); Monocytes % 7.9 % (1.7-9.3); Neutrophils # 8.7 K/mm3 (1.8-7.8); Neutrophils % 79.5 % (37.0-80.0); Platelet Count 168 K/mm3 (142-424); Red Blood Count 4.86 M/mm3 (4.60-6.20); Red Cell Distribution Width 14.5 % (11.5-17.5); White Blood Count 10.9 K/mm3 (4.8-10.8)
[2017-10-29 07:20] LABS: Alanine Aminotransferase 663 U/L (12-78); Albumin Level 2.3 gm/dL (3.4-5.0); Albumin/Globulin Ratio 0.7 (1.1-1.8); Alkaline Phosphatase 280 U/L (46-116); Anion Gap 9.4 mEq/L (5-15); Aspartate Amino Transferase 477 U/L (15-37); Bilirubin,Total 1.9 mg/dL (0.2-1.0); Blood Urea Nitrogen 23 mg/dL (7-18); Calcium 8.4 mg/dL (8.5-10.1); Carbon Dioxide 31 mmol/L (21.0-32.0); Chloride 103 mmol/L (98-107); Creatinine Clearance Estimated 53 mL/min (0-300); Creatinine,Serum 1.46 mg/dL (0.70-1.30); Estimated Glomerular Filt Rate 47 ml/min (>60); GFR (African American) 57 ML/MIN (>60); Globulin 3.5 gm/dl (1.3-3.2); Glucose 143 mg/dL (74-106); Potassium 3.4 mmoL/L (3.5-5.1); Sodium 140 mmol/L (136-145); Total Protein,Serum 5.8 gm/dL (6.4-8.2)
--- NOTE | 2017-10-29 07:29 | PC.NURSE ---
Report received from Trixie Silverman RN
--- NOTE | 2017-10-29 07:44 | NM_ITS ---
NM hepatobiliary wo pharm HISTORY: ITS.REASON: possible leak or obstruction s/p lap mahesh ORDERING PHYSICIAN: Brennen Chopra MD PATIENT AGE: 77 years COMPARISON: None DOSE: 7.44 mCi technetium Choletec FINDINGS: Homogeneous activity is present within the hepatic parenchyma. 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 No evidence of bile leak. Activity is present within the small bowel at 20 minutes post injection. IMPRESSION: No evidence of bile leak or biliary obstruction.
--- NOTE | 2017-10-29 08:07 | HMH.GSPN ---
Subjective Patient reports: feels better Exam Vital signs and Labs for Last 24 Hours: Temp Pulse Resp BP Pulse Ox 98.5 F 77 20 157/86 92 L 10/29/17 04:00 10/29/17 04:00 10/29/17 04:00 10/29/17 04:00 10/29/17 04:00 Laboratory Results - last 24 hr 10/28/17 11:29: POC Glucose 251 10/28/17 16:57: POC Glucose 156 10/28/17 20:35: POC Glucose 131 10/29/17 06:07: POC Glucose 130 10/29/17 06:10: WBC 10.9 H, RBC 4.86, Hgb 13.7 L, Hct 42.8, MCV 88.2, MCH 28.1, MCHC 31.9, RDW 14.5, Plt Count 168, MPV 8.1, Neut % (Auto) 79.5, Lymph % (Auto) 11.8, [place] % (Auto) 7.9, Eos % (Auto) 0.6, Baso % (Auto) 0.2, Neut # (Auto) 8.7 H, Lymph # (Auto) 1.3, [place] # (Auto) 0.9, Eos # (Auto) 0.1, Baso # (Auto) 0.0 10/29/17 06:10: Sodium 140, Potassium 3.4 L, Chloride 103, Carbon Dioxide 31, Anion Gap 9.4, BUN 23 H, Creatinine 1.46 H, Estimated Creat Clear 53, Estimated GFR 47 L, Est GFR ( Amer) 57 L, Glucose 143 H, Calcium 8.4 L, Total Bilirubin 1.9 H, AST 477 H*, ALT 663 H*, Alkaline Phosphatase 280 H, Total Protein 5.8 L, Albumin 2.3 L, Globulin 3.5 H, Albumin/Globulin Ratio 0.7 L I & O for Last 24 hours: Intake & Output 10/26/17 10/27/17 10/28/17 10/29/17 11:59 11:59 11:59 11:59 Intake Total 4503 / 4503 4205 / 4205 1480 / 1480 Output Total 960 / 960 2910 / 2910 1020 / 1020 Balance 3543 / 3543 1295 / 1295 460 / 460 Weight 196 lb 3 oz 196 lb 3 oz 196 lb 3 oz Microbiology Reports for the Last 24 Hours: Microbiology 10/26/17 15:00 Urine,Catheterized Urine Culture - Final Enterococcus faecalis Narrative: As needed labetalol scheduled yesterday secondary to ongoing hypertension. Vancomycin started yesterday secondary to E faecalis urinary cultures. - Constitutional no acute distress - *Routine Respiratory Exam Absent: respiratory distress - *Routine Cardiovascular Exam Present: RRR - *Routine Abdominal Exam Present: soft Comments: ABDIRIZAK drains with non-bilious drainage. No cellulitis. Progress Note: A&P (1) Acute calculous cholecystitis Status: Acute Assessment and plan: Ongoing liver function test abnormality status post laparoscopic cholecystectomy for gangrenous cholecystitis Hepatobiliary scan to evaluate for possible leak or obstruction Current Visit: Yes (2) UTI (urinary tract infection) Status: Acute Assessment and plan: On vancomycin for E faecalis Current Visit: Yes
--- NOTE | 2017-10-29 08:40 | HMH.ACPN ---
Internal Medicine - PN: Subj *Date: 10/29/17 *Time: 08:40 Exam Vital signs and Labs for Last 24 Hours: Temp Pulse Resp BP Pulse Ox 98.8 F 70 20 162/91 95 10/29/17 08:00 10/29/17 08:00 10/29/17 08:00 10/29/17 08:00 10/29/17 08:00 Laboratory Results - last 24 hr 10/28/17 11:29: POC Glucose 251 10/28/17 16:57: POC Glucose 156 10/28/17 20:35: POC Glucose 131 10/29/17 06:07: POC Glucose 130 10/29/17 06:10: WBC 10.9 H, RBC 4.86, Hgb 13.7 L, Hct 42.8, MCV 88.2, MCH 28.1, MCHC 31.9, RDW 14.5, Plt Count 168, MPV 8.1, Neut % (Auto) 79.5, Lymph % (Auto) 11.8, [place] % (Auto) 7.9, Eos % (Auto) 0.6, Baso % (Auto) 0.2, Neut # (Auto) 8.7 H, Lymph # (Auto) 1.3, [place] # (Auto) 0.9, Eos # (Auto) 0.1, Baso # (Auto) 0.0 10/29/17 06:10: Sodium 140, Potassium 3.4 L, Chloride 103, Carbon Dioxide 31, Anion Gap 9.4, BUN 23 H, Creatinine 1.46 H, Estimated Creat Clear 53, Estimated GFR 47 L, Est GFR ( Amer) 57 L, Glucose 143 H, Calcium 8.4 L, Total Bilirubin 1.9 H, AST 477 H*, ALT 663 H*, Alkaline Phosphatase 280 H, Total Protein 5.8 L, Albumin 2.3 L, Globulin 3.5 H, Albumin/Globulin Ratio 0.7 L I & O for Last 24 hours: Intake & Output 10/26/17 10/27/17 10/28/17 10/29/17 23:59 23:59 23:59 23:59 Intake Total 3115 / 3115 2708 / 2708 4365 / 4365 Output Total 300 / 300 1515 / 1515 2905 / 2905 170 / 170 Balance 2815 / 2815 1193 / 1193 1460 / 1460 -170 / -170 Weight 88.989 kg 88.989 kg 88.989 kg Microbiology Reports for the Last 24 Hours: Microbiology 10/26/17 15:00 Urine,Catheterized Urine Culture - Final Enterococcus faecalis Assessment and Plan (1) Acute calculous cholecystitis Current visit: Yes Status: Acute Category: Medical Code(s): K80.00 - Calculus of gallbladder with acute cholecystitis without obstruction (2) UTI (urinary tract infection) Current visit: Yes Status: Acute Category: Medical Code(s): N39.0 - Urinary tract infection, site not specified The patient's infection will respond to the chosen ABx?: Yes (VANC FOR E. FAECALIS) Is the patient receiving the right drug, dose, and route?: Yes Could a more targeted ABx be ordered?: No
[2017-10-29 12:07] LABS: POC Glucose,Bedside 216 mg/dL
--- NOTE | 2017-10-29 12:28 | PC.NURSE ---
1135 - Emptied lateral ABDIRIZAK drain of 50ml of yellowish drng
--- NOTE | 2017-10-29 16:40 | PC.NURSE ---
Pt has been A&Ox3 this shift in NAD. VSS. Afebrile. Heart rate reg. Lungs CTA. Abd soft and non-tender /c active BS X4 quads. 4 abd drsgs CDI. 2 ABDIRIZAK drains intact to bulb suction draining serosanguinous drng. (R) hand IV saline locked; no s/s of infiltration. Pt has ambulated in hallways this shift. Family visiting at bedside. Will continue to monitor.
[2017-10-29 16:42] LABS: POC Glucose,Bedside 125 mg/dL
--- NOTE | 2017-10-29 19:04 | PC.NURSE ---
Report given to Wilmer Willis RN
--- NOTE | 2017-10-29 19:10 | PC.NURSE ---
PT FULL CODE, REPORT FROM JOSEFINA
[2017-10-29 21:30] LABS: POC Glucose,Bedside 120 mg/dL
[2017-10-30 03:53] VITALS: BP 146/83; PULSE 70; RESP 20; TEMP 36.8; O2SAT 92
--- NOTE | 2017-10-30 05:26 | PC.NURSE ---
PT ALERT AND ORIENTED. SLEPT LONG INTERVALS. IV SECURE AND PATENT, SALINE LOCK. INCISIONS X4, DRY AND INTACT. ABDIRIZAK DRAINS X2 TOTAL OUTPUT OF THIS TIME IS 240 TOTAL. RESPIRATIONS EVEN AND UNLABORED. BREATH SOUNDS FINE SCATTERED RHONCHI. PT AMBULATED IN ROOM. NO C/O PAIN OR DISCOMFORT REPORTED. PT HAS AM LABS SCHEDULED THIS MORNING AND VANCOMYCIN TROUGH LEVEL DUE AT 1230 TODAY WELL. PT STABLE. WILL CONTINUE TO MONITOR. REPORT TO BE GIVEN TO ONCOMING NURSE.
[2017-10-30 06:23] LABS: POC Glucose,Bedside 90 mg/dL
[2017-10-30 07:09] LABS: Alanine Aminotransferase 498 U/L (12-78); Albumin/Globulin Ratio 0.6 (1.1-1.8); Alkaline Phosphatase 310 U/L (46-116); Anion Gap 10.3 mEq/L (5-15); Aspartate Amino Transferase 286 U/L (15-37); Bilirubin,Total 2.3 mg/dL (0.2-1.0); Blood Urea Nitrogen 21 mg/dL (7-18); Calcium 8.1 mg/dL (8.5-10.1); Carbon Dioxide 29 mmol/L (21.0-32.0); Chloride 107 mmol/L (98-107); Creatinine Clearance Estimated 53 mL/min (0-300); Creatinine,Serum 1.46 mg/dL (0.70-1.30); Estimated Glomerular Filt Rate 47 ml/min (>60); GFR (African American) 57 ML/MIN (>60); Globulin 3.2 gm/dl (1.3-3.2); Glucose 103 mg/dL (74-106); Potassium 3.3 mmoL/L (3.5-5.1); Sodium 143 mmol/L (136-145); Total Protein,Serum 5.2 gm/dL (6.4-8.2)
--- NOTE | 2017-10-30 07:25 | PC.NURSE ---
Received report from Wilmer Willis RN
--- NOTE | 2017-10-30 07:48 | HMH.GSPN ---
Subjective Patient reports: no new complaints Exam Vital signs and Labs for Last 24 Hours: Temp Pulse Resp BP Pulse Ox 98.2 F 70 20 146/83 92 L 10/30/17 03:53 10/30/17 03:53 10/30/17 03:53 10/30/17 03:53 10/30/17 03:53 Laboratory Results - last 24 hr 10/29/17 11:18: POC Glucose 216 10/29/17 16:19: POC Glucose 125 10/29/17 20:24: POC Glucose 120 10/30/17 06:13: POC Glucose 90 10/30/17 06:15: Sodium 143, Potassium 3.3 L, Chloride 107, Carbon Dioxide 29, Anion Gap 10.3, BUN 21 H, Creatinine 1.46 H, Estimated Creat Clear 53, Estimated GFR 47 L, Est GFR ( Amer) 57 L, Glucose 103, Calcium 8.1 L, Total Bilirubin 2.3 H, AST 286 H D, ALT 498 H*, Alkaline Phosphatase 310 H, Total Protein 5.2 L, Albumin 2.0 L D, Globulin 3.2, Albumin/Globulin Ratio 0.6 L I & O for Last 24 hours: Intake & Output 10/27/17 10/28/17 10/29/17 10/30/17 11:59 11:59 11:59 11:59 Intake Total 4503 / 4503 4205 / 4205 1480 / 1480 380 / 380 Output Total 960 / 960 2910 / 2910 1170 / 1170 920 / 920 Balance 3543 / 3543 1295 / 1295 310 / 310 -540 / -540 Weight 196 lb 3 oz 196 lb 3 oz 196 lb 3 oz 196 lb 2.994 oz Radiology Reports for the Last 24 Hours: HIDA - no obvious leak or obstruction - Constitutional no acute distress - *Routine Respiratory Exam Absent: respiratory distress - *Routine Abdominal Exam Present: soft Comments: ABDIRIZAK drains unchanged Progress Note: A&P (1) Acute calculous cholecystitis Status: Acute Assessment and plan: slightly worse hyperbilirubinemia AST/ALT improved No obvious leak or obstruction on yesterday's HIDA Continue Invanz for now Repeat CMP in AM Current Visit: Yes (2) UTI (urinary tract infection) Status: Acute Assessment and plan: Complicated UTI present on admission Continue Vanc for now...complete 5-7 day course Current Visit: Yes
[2017-10-30 08:00] VITALS: BP 152/78; PULSE 66; RESP 16; TEMP 36.6; O2SAT 92
[2017-10-30 09:08] LABS: Basophils % 0.3 % (0.1-2.0); Eosinophils # 0.2 K/mm3 (0.0-0.4); Eosinophils % 1.9 % (0.1-12.0); Hematocrit 39.2 % (42.0-52.0); Hemoglobin 12.9 g/dL (14.1-18.0); Lymphocytes # 1.4 K/mm3 (0.7-4.5); Lymphocytes % 16.6 K/mm3 (10-50); Mean Corpuscular HGB Conc 32.9 g/dL (31.8-35.4); Mean Corpuscular Hemoglobin 28.8 pg (27.0-31.2); Mean Corpuscular Volume 87.5 fl (80-94); Mean Platelet Volume 8.6 fl (7.4-10.4); Monocytes # 0.8 K/mm3 (0.1-1.0); Monocytes % 9.5 % (1.7-9.3); Neutrophils # 6.1 K/mm3 (1.8-7.8); Neutrophils % 71.7 % (37.0-80.0); Platelet Count 149 K/mm3 (142-424); Red Blood Count 4.48 M/mm3 (4.60-6.20); Red Cell Distribution Width 14.5 % (11.5-17.5); White Blood Count 8.5 K/mm3 (4.8-10.8)
[2017-10-30 11:43] LABS: POC Glucose,Bedside 207 mg/dL
[2017-10-30 12:00] VITALS: BP 127/73; PULSE 61; RESP 20; TEMP 36.5; O2SAT 96
--- NOTE | 2017-10-30 12:44 | PC.NURSE ---
Pt demonstrated emptying of ABDIRIZAK drains with nursing prompting.
[2017-10-30 12:53] LABS: Vancomycin,Trough 12.1 mcg/ml (10.0-20.0)
--- NOTE | 2017-10-30 13:18 | P.CONPHA_ITS ---
- Pharmacy Consult Date: 10/30/17 Time: 13:17 Referring provider: DR. TOLENTINO Reason for Consult:: VANCOMYCIN TROUGH LEVEL Allergies and ADEs:: Allergies Allergy/AdvReac Type Severity Reaction Status Date / Time levofloxacin Allergy Mild I-HIVES/VICKY Verified 10/23/17 13:34 H nitrofurantoin Allergy Unknown Verified 10/23/17 13:34 Penicillins Allergy Unknown I-RASH Verified 10/23/17 13:34 Home Medications:: Home Medications Medication Instructions Recorded Confirmed Type atorvastatin 10 mg tablet 10 mg PO HS 10/16/17 10/27/17 History carvedilol 25 mg tablet 25 mg PO BID 10/16/17 10/26/17 History cholecalciferol (vitamin D3) 2,000 2,000 unit PO DAILY 10/16/17 10/27/17 History unit capsule chromium 200 mcg tablet 200 mcg PO DAILY 10/16/17 10/27/17 History diltiazem ER 300 mg 300 mg PO DAILY 10/16/17 10/27/17 History tablet,extended release 24 hr doxazosin 4 mg tablet 4 mg PO BID 10/16/17 10/28/17 History finasteride 5 mg tablet 5 mg PO DAILY 10/16/17 10/27/17 History glimepiride 4 mg tablet 4 mg PO BID 10/16/17 10/27/17 History hyoscyamine sulfate 0.125 mg tablet 0.125 mg PO QID 10/16/17 10/23/17 History losartan 50 mg tablet 50 mg PO DAILY 10/16/17 10/27/17 History montelukast 10 mg tablet 10 mg PO HS 10/16/17 10/27/17 History paroxetine 10 mg tablet 10 mg PO DAILY 10/16/17 10/27/17 History sitagliptin 50 mg tablet 50 mg PO DAILY 10/16/17 10/27/17 History vitamin E 200 unit capsule 200 unit PO DAILY 10/16/17 10/27/17 History Hydralazine HCl [Hydralazine HCl 25 mg PO TID 10/27/17 10/27/17 History 25mg Tablet] Height: 1.83 m Weight: 88.989 kg Laboratory Results:: Laboratory Results - last 24 hr 10/29/17 16:19: POC Glucose 125 10/29/17 20:24: POC Glucose 120 10/30/17 06:13: POC Glucose 90 10/30/17 06:15: WBC 8.5, RBC 4.48 L, Hgb 12.9 L, Hct 39.2 L, MCV 87.5, MCH 28.8 , MCHC 32.9, RDW 14.5, Plt Count 149, MPV 8.6, Neut % (Auto) 71.7, Lymph % (Auto ) 16.6, [place] % (Auto) 9.5 H, Eos % (Auto) 1.9, Baso % (Auto) 0.3, Neut # (Auto) 6.1, Lymph # (Auto) 1.4, [place] # (Auto) 0.8, Eos # (Auto) 0.2, Baso # (Auto) 0.0 10/30/17 06:15: Sodium 143, Potassium 3.3 L, Chloride 107, Carbon Dioxide 29, Anion Gap 10.3, BUN 21 H, Creatinine 1.46 H, Estimated Creat Clear 53, Estimated GFR 47 L, Est GFR ( Amer) 57 L, Glucose 103, Calcium 8.1 L, Total Bilirubin 2.3 H, AST 286 H D, ALT 498 H*, Alkaline Phosphatase 310 H, Total Protein 5.2 L, Albumin 2.0 L D, Globulin 3.2, Albumin/Globulin Ratio 0.6 L 10/30/17 11:29: POC Glucose 207 10/30/17 12:33: Vancomycin Trough 12.1 Medical History: Reports:: Hyperlipidemia, Hypertension, Nephritis Denies:: Cancer, Diabetes Mellitus Type 1, Diabetes Mellitus Type 2, MRSA, Seizures Assessment and Plan (1) Acute calculous cholecystitis Current visit: Yes Status: Acute Category: Medical Code(s): K80.00 - Calculus of gallbladder with acute cholecystitis without obstruction (2) UTI (urinary tract infection) Current visit: Yes Status: Acute Category: Medical Code(s): N39.0 - Urinary tract infection, site not specified - Assessment and plan all Dx Assessment and Plan for all problems:: BASED ON VANCOMYCIN TROUGH LEVEL AND PATIENT FACTORS, RECOMMEND CONTINUING VANCOMYCIN 1750 MG IV Q24H. PHARMACY WILL CONTINUE TO MONITOR DAILY AND ADJUST APPROPRIATE.
--- NOTE | 2017-10-30 14:09 | PC.NURSE ---
Call placed to Dr Cohpra regarding pt's IV and time protocol to rotate sites. This nurse and a colleague attempted x2 each to start IV /s success. Dr Chopra verbally authorized to leave IV in place another 24 hours as pt may be discharged home tomorrow.
--- NOTE | 2017-10-30 14:41 | PC.NURSE ---
Started IV antibiotics. (R) hand IV site started with leaking. IV site discontinued and site initiated (R)FA /c 22guage angiocath x1 stick.
--- NOTE | 2017-10-30 15:17 | PC.NURSE ---
Stage I noted to coccyx. Barrier cream applied and pt instructed to keep pressure off area. Dr Chopra aware of excoriation as pt informed him earlier in shift.
--- NOTE | 2017-10-30 15:20 | PC.NURSE ---
77 year old male admitted on 10/26/17 with dx of acute cholecystits and UTI. Pt underwent a Laparoscopic cholecystectomy on 10/26/[address] Chopra. Pt is A&Ox4 in NAD. VSS. Afebrile. Heart rate regular. Lungs CTA. Abd soft, nontender /c active BS x4 quads. 4 scope sites /c C/D/I drsgs (3 proximal and 1 umbilical) There are 2 ABDIRIZAK drains in the proximal aspect of the RUQ sutured in place and intact to bulb suction draining serosanguinous drng (lateral > medial). Pt instructed on care of drains and has participated in emptying drains and reporting amount of drainage. IV to (R) hand started leaking this shift and was discontinued. New IV site initiated to (R) FA using aseptic technique; flushes easily /c good blood return. Stage I pressure area noted to coccyx and pt instructed to keep pressure off area and apply barrier cream /c each BM. Pt has ambulated in hallway multiple times this shift. Will continue to monitor.
[2017-10-30 16:00] VITALS: BP 148/79; PULSE 66; RESP 16; TEMP 36.1; O2SAT 93
--- NOTE | 2017-10-30 17:09 | SW/DCPLANNER ---
Spoke with this patient and his family this evening regarding discharge plans. Patients family stated that they would like to have home health services. I will follow up with this family and MD in the AM regarding home health orders. Patient stated that he plans on being discharged home tomorrow.
[2017-10-30 17:14] LABS: POC Glucose,Bedside 142 mg/dL
--- NOTE | 2017-10-30 17:55 | XR_ITS ---
XR chest 2V HISTORY: ITS.REASON: post op cough ORDERING PHYSICIAN: Brennen Chopra MD PATIENT AGE: 77 years COMPARISON: 01/31/2015 FINDINGS: The cardiomediastinal silhouette and pulmonary vascularity are within normal limits. Right hemidiaphragm is elevated with atelectatic or infiltrate in the right lung base. These findings are slightly worsened when compared to the older exam.. No acute bony abnormalities. IMPRESSION: Chronic elevation right hemidiaphragm with right basilar atelectasis or infiltrate
[2017-10-30 20:00] VITALS: BP 129/73; PULSE 76; RESP 22; TEMP 36.9; O2SAT 94
[2017-10-30 21:05] LABS: POC Glucose,Bedside 162 mg/dL
[2017-10-31] VITALS: BP 136/69; PULSE 74; RESP 18; TEMP 36.9; O2SAT 93
[2017-10-31 04:00] VITALS: BP 157/83; PULSE 66; RESP 20; TEMP 36.7; O2SAT 94
[2017-10-31 06:28] LABS: POC Glucose,Bedside 104 mg/dL
[2017-10-31 06:59] LABS: Basophils % 0.5 % (0.1-2.0); Eosinophils # 0.2 K/mm3 (0.0-0.4); Eosinophils % 2.7 % (0.1-12.0); Hematocrit 41.3 % (42.0-52.0); Hemoglobin 13.3 g/dL (14.1-18.0); Lymphocytes # 1.7 K/mm3 (0.7-4.5); Lymphocytes % 20.7 K/mm3 (10-50); Mean Corpuscular HGB Conc 32.1 g/dL (31.8-35.4); Mean Corpuscular Hemoglobin 28.3 pg (27.0-31.2); Mean Corpuscular Volume 88.1 fl (80-94); Mean Platelet Volume 8.1 fl (7.4-10.4); Monocytes # 0.7 K/mm3 (0.1-1.0); Monocytes % 8.5 % (1.7-9.3); Neutrophils # 5.6 K/mm3 (1.8-7.8); Neutrophils % 67.6 % (37.0-80.0); Platelet Count 161 K/mm3 (142-424); Red Blood Count 4.69 M/mm3 (4.60-6.20); Red Cell Distribution Width 14.5 % (11.5-17.5); White Blood Count 8.3 K/mm3 (4.8-10.8)
[2017-10-31 07:21] LABS: Alanine Aminotransferase 447 U/L (12-78); Albumin/Globulin Ratio 0.6 (1.1-1.8); Alkaline Phosphatase 364 U/L (46-116); Anion Gap 8.4 mEq/L (5-15); Aspartate Amino Transferase 227 U/L (15-37); Bilirubin,Total 2.2 mg/dL (0.2-1.0); Blood Urea Nitrogen 21 mg/dL (7-18); Calcium 8.3 mg/dL (8.5-10.1); Carbon Dioxide 31 mmol/L (21.0-32.0); Chloride 105 mmol/L (98-107); Creatinine Clearance Estimated 46 mL/min (0-300); Creatinine,Serum 1.65 mg/dL (0.70-1.30); Estimated Glomerular Filt Rate 41 ml/min (>60); GFR (African American) 49 ML/MIN (>60); Globulin 3.5 gm/dl (1.3-3.2); Glucose 120 mg/dL (74-106); Potassium 3.4 mmoL/L (3.5-5.1); Sodium 141 mmol/L (136-145); Total Protein,Serum 5.5 gm/dL (6.4-8.2)
[2017-10-31 08:00] VITALS: BP 129/75; PULSE 68; RESP 16; TEMP 36.6; O2SAT 94
--- NOTE | 2017-10-31 08:22 | HMH.GSPN ---
Subjective Patient reports: no new complaints (mild, intermittent cough (non-productive)...CXR yesterday borderline for atelectasis versus infiltrate) Exam Vital signs and Labs for Last 24 Hours: Temp Pulse Resp BP Pulse Ox 97.8 F 68 16 129/75 94 L 10/31/17 08:00 10/31/17 08:00 10/31/17 08:00 10/31/17 08:00 10/31/17 08:00 Laboratory Results - last 24 hr 10/30/17 06:15: WBC 8.5, RBC 4.48 L, Hgb 12.9 L, Hct 39.2 L, MCV 87.5, MCH 28.8, MCHC 32.9, RDW 14.5, Plt Count 149, MPV 8.6, Neut % (Auto) 71.7, Lymph % (Auto) 16.6, [place] % (Auto) 9.5 H, Eos % (Auto) 1.9, Baso % (Auto) 0.3, Neut # (Auto) 6.1, Lymph # (Auto) 1.4, [place] # (Auto) 0.8, Eos # (Auto) 0.2, Baso # (Auto) 0.0 10/30/17 11:29: POC Glucose 207 10/30/17 12:33: Vancomycin Trough 12.1 10/30/17 16:45: POC Glucose 142 10/30/17 20:38: POC Glucose 162 10/31/17 06:15: POC Glucose 104 10/31/17 06:35: WBC 8.3, RBC 4.69, Hgb 13.3 L, Hct 41.3 L, MCV 88.1, MCH 28.3, MCHC 32.1, RDW 14.5, Plt Count 161, MPV 8.1, Neut % (Auto) 67.6, Lymph % (Auto) 20.7, [place] % (Auto) 8.5, Eos % (Auto) 2.7, Baso % (Auto) 0.5, Neut # (Auto) 5.6, Lymph # (Auto) 1.7, [place] # (Auto) 0.7, Eos # (Auto) 0.2, Baso # (Auto) 0.0 10/31/17 06:35: Sodium 141, Potassium 3.4 L, Chloride 105, Carbon Dioxide 31, Anion Gap 8.4, BUN 21 H, Creatinine 1.65 H, Estimated Creat Clear 46, Estimated GFR 41 L, Est GFR ( Amer) 49 L, Glucose 120 H, Calcium 8.3 L, Total Bilirubin 2.2 H, AST 227 H, ALT 447 H*, Alkaline Phosphatase 364 H, Total Protein 5.5 L, Albumin 2.0 L, Globulin 3.5 H, Albumin/Globulin Ratio 0.6 L I & O for Last 24 hours: Intake & Output 10/28/17 10/29/17 10/30/17 10/31/17 11:59 11:59 11:59 11:59 Intake Total 4205 / 4205 1480 / 1480 980 / 980 840 / 840 Output Total 2910 / 2910 1170 / 1170 1020 / 1020 495 / 495 Balance 1295 / 1295 310 / 310 -40 / -40 345 / 345 Weight 196 lb 3 oz 196 lb 3 oz 196 lb 2.994 oz 191 lb 7 oz - Constitutional no acute distress - *Routine Respiratory Exam Absent: respiratory distress Comments: no current cough - *Routine Cardiovascular Exam Present: RRR - *Routine Abdominal Exam Present: soft Comments: JPs unchanged Progress Note: A&P (1) Acute calculous cholecystitis Status: Acute Assessment and plan: Persistent elevated LFTs essentially stable Likely discharge later today with close outpatient follow-up. Continue Domo-Mcqueen drainage for now. Current Visit: Yes (2) UTI (urinary tract infection) Status: Acute Assessment and plan: Vancomycin course to complete today Current Visit: Yes
--- NOTE | 2017-10-31 08:25 | P.PN_ITS ---
Subjective Patient reports: no new complaints (mild, intermittent cough (non-productive) ...CXR yesterday borderline for atelectasis versus infiltrate) Exam Vital signs and Labs for Last 24 Hours: Temp Pulse Resp BP Pulse Ox 97.8 F 68 16 129/75 94 L 10/31/17 08:00 10/31/17 08:00 10/31/17 08:00 10/31/17 08:00 10/31/17 08:00 Laboratory Results - last 24 hr 10/30/17 06:15: WBC 8.5, RBC 4.48 L, Hgb 12.9 L, Hct 39.2 L, MCV 87.5, MCH 28.8 , MCHC 32.9, RDW 14.5, Plt Count 149, MPV 8.6, Neut % (Auto) 71.7, Lymph % (Auto ) 16.6, [place] % (Auto) 9.5 H, Eos % (Auto) 1.9, Baso % (Auto) 0.3, Neut # (Auto) 6.1, Lymph # (Auto) 1.4, [place] # (Auto) 0.8, Eos # (Auto) 0.2, Baso # (Auto) 0.0 10/30/17 11:29: POC Glucose 207 10/30/17 12:33: Vancomycin Trough 12.1 10/30/17 16:45: POC Glucose 142 10/30/17 20:38: POC Glucose 162 10/31/17 06:15: POC Glucose 104 10/31/17 06:35: WBC 8.3, RBC 4.69, Hgb 13.3 L, Hct 41.3 L, MCV 88.1, MCH 28.3, MCHC 32.1, RDW 14.5, Plt Count 161, MPV 8.1, Neut % (Auto) 67.6, Lymph % (Auto) 20.7, [place] % (Auto) 8.5, Eos % (Auto) 2.7, Baso % (Auto) 0.5, Neut # (Auto) 5.6 , Lymph # (Auto) 1.7, [place] # (Auto) 0.7, Eos # (Auto) 0.2, Baso # (Auto) 0.0 10/31/17 06:35: Sodium 141, Potassium 3.4 L, Chloride 105, Carbon Dioxide 31, Anion Gap 8.4, BUN 21 H, Creatinine 1.65 H, Estimated Creat Clear 46, Estimated GFR 41 L, Est GFR ( Amer) 49 L, Glucose 120 H, Calcium 8.3 L, Total Bilirubin 2.2 H, AST 227 H, ALT 447 H*, Alkaline Phosphatase 364 H, Total Protein 5.5 L, Albumin 2.0 L, Globulin 3.5 H, Albumin/Globulin Ratio 0.6 L I & O for Last 24 hours: Intake & Output 10/28/17 10/29/17 10/30/17 10/31/17 11:59 11:59 11:59 11:59 Intake Total 4205 / 4205 1480 / 1480 980 / 980 840 / 840 Output Total 2910 / 2910 1170 / 1170 1020 / 1020 495 / 495 Balance 1295 / 1295 310 / 310 -40 / -40 345 / 345 Weight 196 lb 3 oz 196 lb 3 oz 196 lb 2.994 oz 191 lb 7 oz - Constitutional no acute distress - *Routine Respiratory Exam Absent: respiratory distress Comments: no current cough - *Routine Cardiovascular Exam Present: RRR - *Routine Abdominal Exam Present: soft Comments: JPs unchanged Progress Note: A&P (1) Acute calculous cholecystitis Status: Acute Assessment and plan: Persistent elevated LFTs essentially stable Likely discharge later today with close outpatient follow-up. Continue Domo-Mcqueen drainage for now. Current Visit: Yes (2) UTI (urinary tract infection) Status: Acute Assessment and plan: Vancomycin course to complete today Current Visit: Yes
[2017-10-31 09:00] VITALS: O2SAT 96
--- NOTE | 2017-10-31 11:11 | HMH.DCSUM ---
General - General Admission date: 10/26/17 Discharge date: 10/31/17 HPI HPI: This is a 77-year-old gentleman who presented with radiographic evidence of cholecystitis with calculus. Is scheduled for outpatient laparoscopic cholecystectomy on 10/26/2017. Intraoperative findings revealed gangrenous cholecystitis with severe inflammation of the tissue with entire right upper quadrant. Please see operative report for detail. The patient was admitted postoperatively for ongoing observation and management with regard to gangrenous cholecystitis (Invanz) and serial laboratory evaluation. In addition, the patient had visual signs of obvious urinary tract infection at [facility] catheter placement. This proved to be Enterococcus faecalis that was sensitive to vancomycin. Objective Vital signs: Temp Pulse Resp BP Pulse Ox 97.8 F 68 16 129/75 96 10/31/17 08:00 10/31/17 08:00 10/31/17 08:00 10/31/17 08:00 10/31/17 09:00 no acute distress - *Routine Respiratory Exam Absent: respiratory distress - *Routine Cardiovascular Exam Present: RRR - *Routine Abdominal Exam Present: soft Comments: Domo-Mcqueen drains with continued output and no sign of infection. Hospital Course Hospital Course: Postoperatively, the patient convalesced well. His home medications with regard to his complex hypertension were reinstituted. He did require occasional labetalol injection for intermittent elevated blood pressures. He had essentially no postoperative pain. He did have postoperative abnormalities of his liver function studies with a bilirubin of over 2 and transaminases that were quite elevated. Post-op HIDA showed no leak and no sign of biliary obstruction. Domo-Mcqueen drainage remained fairly high, but no sign of bilious output was noted. Near the end of his hospital stay he did develop a cough. Chest x-ray revealed most likely right lower lobe atelectasis versus less likely infiltrate. The decision made to proceed with postoperative close outpatient follow-up in lieu of an ongoing long course of antibiotics. He did complete a course of vancomycin for enterococcus faecalis urinary tract infection. He will temporarily hold his statin secondary to recent liver function test abnormalities. At the time of discharge she was afebrile with stable normal vital signs. He was tolerating a diet. Results Labs on day of discharge: Labs from last 24 hours 10/31/17 10/31/17 10/31/17 06:35 06:35 06:15 WBC 8.3 RBC 4.69 Hgb 13.3 L Hct 41.3 L MCV 88.1 MCH 28.3 MCHC 32.1 RDW 14.5 Plt Count 161 MPV 8.1 Neut % (Auto) 67.6 Lymph % (Auto) 20.7 [place] % (Auto) 8.5 Eos % (Auto) 2.7 Baso % (Auto) 0.5 Neut # (Auto) 5.6 Lymph # (Auto) 1.7 [place] # (Auto) 0.7 Eos # (Auto) 0.2 Baso # (Auto) 0.0 Sodium 141 Potassium 3.4 L Chloride 105 Carbon Dioxide 31 Anion Gap 8.4 BUN 21 H Creatinine 1.65 H Estimated Creat Clear 46 Estimated GFR 41 L Est GFR ( Amer) 49 L Glucose 120 H POC Glucose 104 Calcium 8.3 L Total Bilirubin 2.2 H AST 227 H ALT 447 H* Alkaline Phosphatase 364 H Total Protein 5.5 L Albumin 2.0 L Globulin 3.5 H Albumin/Globulin Ratio 0.6 L Vancomycin Trough 10/30/17 10/30/17 10/30/17 20:38 16:45 12:33 WBC RBC Hgb Hct MCV MCH MCHC RDW Plt Count MPV Neut % (Auto) Lymph % (Auto) [place] % (Auto) Eos % (Auto) Baso % (Auto) Neut # (Auto) Lymph # (Auto) [place] # (Auto) Eos # (Auto) Baso # (Auto) Sodium Potassium Chloride Carbon Dioxide Anion Gap BUN Creatinine Estimated Creat Clear Estimated GFR Est GFR ( Amer) Glucose POC Glucose 162 142 Calcium Total Bilirubin AST ALT Alkaline Phosphatase Total Protein Albumin Gl
--- NOTE | 2017-10-31 11:19 | P.DS_ITS ---
General - General Admission date: 10/26/17 Discharge date: 10/31/17 HPI HPI: This is a 77-year-old gentleman who presented with radiographic evidence of cholecystitis with calculus. Is scheduled for outpatient laparoscopic cholecystectomy on 10/26/2017. Intraoperative findings revealed gangrenous cholecystitis with severe inflammation of the tissue with entire right upper quadrant. Please see operative report for detail. The patient was admitted postoperatively for ongoing observation and management with regard to gangrenous cholecystitis ( Invanz) and serial laboratory evaluation. In addition, the patient had visual signs of obvious urinary tract infection at [facility] catheter placement. This proved to be Enterococcus faecalis that was sensitive to vancomycin. Objective Vital signs: Temp Pulse Resp BP Pulse Ox 97.8 F 68 16 129/75 96 10/31/17 08:00 10/31/17 08:00 10/31/17 08:00 10/31/17 08:00 10/31/17 09:00 no acute distress - *Routine Respiratory Exam Absent: respiratory distress - *Routine Cardiovascular Exam Present: RRR - *Routine Abdominal Exam Present: soft Comments: Domo-Mcqueen drains with continued output and no sign of infection. Hospital Course Hospital Course: Postoperatively, the patient convalesced well. His home medications with regard to his complex hypertension were reinstituted. He did require occasional labetalol injection for intermittent elevated blood pressures. He had essentially no postoperative pain. He did have postoperative abnormalities of his liver function studies with a bilirubin of over 2 and transaminases that were quite elevated. Post-op HIDA showed no leak and no sign of biliary obstruction. Domo-Mcqueen drainage remained fairly high, but no sign of bilious output was noted. Near the end of his hospital stay he did develop a cough. Chest x-ray revealed most likely right lower lobe atelectasis versus less likely infiltrate. The decision made to proceed with postoperative close outpatient follow-up in lieu of an ongoing long course of antibiotics. He did complete a course of vancomycin for enterococcus faecalis urinary tract infection. He will temporarily hold his statin secondary to recent liver function test abnormalities. At the time of discharge she was afebrile with stable normal vital signs. He was tolerating a diet. Results Labs on day of discharge: Labs from last 24 hours 10/31/17 10/31/17 10/31/17 06:35 06:35 06:15 WBC 8.3 RBC 4.69 Hgb 13.3 L Hct 41.3 L MCV 88.1 MCH 28.3 MCHC 32.1 RDW 14.5 Plt Count 161 MPV 8.1 Neut % (Auto) 67.6 Lymph % (Auto) 20.7 [place] % (Auto) 8.5 Eos % (Auto) 2.7 Baso % (Auto) 0.5 Neut # (Auto) 5.6 Lymph # (Auto) 1.7 [place] # (Auto) 0.7 Eos # (Auto) 0.2 Baso # (Auto) 0.0 Sodium 141 Potassium 3.4 L Chloride 105 Carbon Dioxide 31 Anion Gap 8.4 BUN 21 H Creatinine 1.65 H Estimated Creat Clear 46 Estimated GFR 41 L Est GFR ( Amer) 49 L Glucose 120 H POC Glucose 104 Calcium 8.3 L Total Bilirubin 2.2 H AST 22
[2017-10-31 12:00] VITALS: BP 147/82; PULSE 66; RESP 18; TEMP 36.6; O2SAT 95
--- NOTE | 2017-10-31 12:04 | P.PN_ITS ---
Internal Medicine - PN: Subj *Date: 10/31/17 *Time: 12:04 Exam Vital signs and Labs for Last 24 Hours: Temp Pulse Resp BP Pulse Ox 97.8 F 68 16 129/75 96 10/31/17 08:00 10/31/17 08:00 10/31/17 08:00 10/31/17 08:00 10/31/17 09:00 Laboratory Results - last 24 hr 10/30/17 12:33: Vancomycin Trough 12.1 10/30/17 16:45: POC Glucose 142 10/30/17 20:38: POC Glucose 162 10/31/17 06:15: POC Glucose 104 10/31/17 06:35: WBC 8.3, RBC 4.69, Hgb 13.3 L, Hct 41.3 L, MCV 88.1, MCH 28.3, MCHC 32.1, RDW 14.5, Plt Count 161, MPV 8.1, Neut % (Auto) 67.6, Lymph % (Auto) 20.7, [place] % (Auto) 8.5, Eos % (Auto) 2.7, Baso % (Auto) 0.5, Neut # (Auto) 5.6 , Lymph # (Auto) 1.7, [place] # (Auto) 0.7, Eos # (Auto) 0.2, Baso # (Auto) 0.0 10/31/17 06:35: Sodium 141, Potassium 3.4 L, Chloride 105, Carbon Dioxide 31, Anion Gap 8.4, BUN 21 H, Creatinine 1.65 H, Estimated Creat Clear 46, Estimated GFR 41 L, Est GFR ( Amer) 49 L, Glucose 120 H, Calcium 8.3 L, Total Bilirubin 2.2 H, AST 227 H, ALT 447 H*, Alkaline Phosphatase 364 H, Total Protein 5.5 L, Albumin 2.0 L, Globulin 3.5 H, Albumin/Globulin Ratio 0.6 L I & O for Last 24 hours: Intake & Output 10/28/17 10/29/17 10/30/17 10/31/17 23:59 23:59 23:59 23:59 Intake Total 4365 / 4365 360 / 360 980 / 980 480 / 480 Output Total 2905 / 2905 880 / 880 615 / 615 340 / 340 Balance 1460 / 1460 -520 / -520 365 / 365 140 / 140 Weight 88.989 kg 88.989 kg 88.989 kg 86.835 kg Assessment and Plan (1) Acute calculous cholecystitis Current visit: Yes Status: Acute Category: Medical Code(s): K80.00 - Calculus of gallbladder with acute cholecystitis without obstruction (2) UTI (urinary tract infection) Current visit: Yes Status: Acute Category: Medical Code(s): N39.0 - Urinary tract infection, site not specified The patient's infection will respond to the chosen ABx?: Yes (E. FAECALIS UTI SENSITIVE TO VANCOMYCIN) Is the patient receiving the right drug, dose, and route?: Yes Could a more targeted ABx be ordered?: No
--- NOTE | 2017-10-31 14:47 | SW/DCPLANNER ---
After multiple conversations with patient and family they are wanting home health due to patient being a diabetic and needing dressing changes. Dr Chopra has stated that patient is fully capable of completing dressing changes and emptying drain himself and does not think home health is necessary, but would order if family must have it. Family is requesting that information be sent to home health even if they will be billed. I have faxed patient information to [facility] and spoke with Haritha. Haritha has confirmed that patient information has been received and services will begin tomorrow. Patient is expected to discharge home this evening.
== END 2017-10-31 15:54 | disposition home or self-care (01) | DRG 418 ==
LOC: 2ND 14:24
PROVIDERS: Admitting Provider Surgery; PCP Family Medicine; Visit Provider Surgery
PROC: 0FT44ZZ Resection of Gallbladder, Percutaneous Endoscopic Approach (ICD-10-PCS; CPT 47562; principal; 2017-10-26 11:15)
DX: K80.12 Calculus of gallbladder with acute and chronic cholecystitis without obstruction (principal); N39.0 Urinary tract infection, site not specified; B95.2 Enterococcus as the cause of diseases classified elsewhere; I10 Essential (primary) hypertension
CPT/HCPCS: 47562; 36415; 71046; 78226; 80053; 80202; 81001; 82962; 85007; 85025; 87086; 87088; 87186; 88304; 93005; 96374; A9537; J1335; J3370

== ENCOUNTER → 2017-11-07 13:53 | Outpatient (CLI) | payer MEDICARE, SELFPAY ==
[2017-11-07 14:17] LABS: Basophils % 0.3 % (0.1-2.0); Eosinophils # 0.3 K/mm3 (0.0-0.4); Eosinophils % 2.1 % (0.1-12.0); Hematocrit 38.9 % (42.0-52.0); Hemoglobin 12.6 g/dL (14.1-18.0); Lymphocytes # 1.3 K/mm3 (0.7-4.5); Lymphocytes % 10.4 K/mm3 (10-50); Mean Corpuscular HGB Conc 32.3 g/dL (31.8-35.4); Mean Corpuscular Hemoglobin 29.2 pg (27.0-31.2); Mean Corpuscular Volume 90.5 fl (80-94); Monocytes # 0.7 K/mm3 (0.1-1.0); Monocytes % 5.6 % (1.7-9.3); Neutrophils # 10.1 K/mm3 (1.8-7.8); Neutrophils % 81.5 % (37.0-80.0); Platelet Count 254 K/mm3 (142-424); Red Cell Distribution Width 14.8 % (11.5-17.5); White Blood Count 12.4 K/mm3 (4.8-10.8)
[2017-11-07 15:25] LABS: Alanine Aminotransferase 150 U/L (12-78); Alkaline Phosphatase 266 U/L (46-116); Anion Gap 10.2 mEq/L (5-15); Aspartate Amino Transferase 67 U/L (15-37); Bilirubin,Direct 1.5 mg/dL (0.0-0.2); Blood Urea Nitrogen 25 mg/dL (7-18); Carbon Dioxide 28 mmol/L (21.0-32.0); Chloride 104 mmol/L (98-107); Creatinine,Serum 1.89 mg/dL (0.70-1.30); Estimated Glomerular Filt Rate 35 ml/min (>60); GFR (African American) 42 ML/MIN (>60); Glucose 214 mg/dL (74-106); Potassium 4.2 mmoL/L (3.5-5.1); Sodium 138 mmol/L (136-145); Total Protein,Serum 5.7 gm/dL (6.4-8.2)
== END ==
PROVIDERS: PCP Family Medicine; Visit Provider Surgery
DX: K82.9 Disease of gallbladder, unspecified (principal)
CPT/HCPCS: 36415; 80048; 80076; 85025

== ENCOUNTER → 2017-11-09 12:10 | Outpatient (CLI) | payer MEDICARE, SELFPAY ==
--- NOTE | 2017-11-09 12:43 | NM_ITS ---
NM hepatobiliary wo pharm HISTORY: Status post cholecystectomy with bile draining out a ABDIRIZAK drain ORDERING PHYSICIAN: Brennen Chopra MD PATIENT AGE: 77 years COMPARISON: 10/29/2017 DOSE: 8.14 mCi increasing: Tach FINDINGS: Homogeneous activity is present within the hepatic parenchyma. Liver has a bilobed appearance as before with elevated right hemidiaphragm. At 15 minutes activity is present within the right lateral ABDIRIZAK drain and within the common bile duct. Activity is present in the small bowel x 20 m. No subhepatic activity is evident. IMPRESSION: 1. The findings are consistent with a bile leak with activity present within the right lateral ABDIRIZAK drain x 15 m 2. No intraperitoneal or subhepatic activity. Activity is present in the small bowel indicating a patent common bile duct. No evidence of bile duct obstruction
== END ==
PROVIDERS: PCP Family Medicine; Visit Provider Surgery
DX: K80.00 Calculus of gallbladder with acute cholecystitis without obstruction (principal)
CPT/HCPCS: 78226; A9537

== ENCOUNTER 2017-11-12 13:15 | Day surgery (SDC) | payer MEDICARE, SELFPAY ==
[2017-11-12] VITALS (8 sets, daily range): BP systolic 95–153; BP diastolic 60–84; PULSE 61–77; RESP 16–20; TEMP 36.4–36.5; O2SAT 93–97; BMI 25.2
--- NOTE | 2017-11-12 14:21 | FL_ITS ---
PA ERCP Ordering Physician: Monty Garsia MD Patient Age: 77 years: Male HISTORY: Suggested biliary leakage through ABDIRIZAK drain recent HIDA scan. No TECHNIQUE: ERCP performed by printing grey cloth tender Dr. Garsia in Room 2 and fluoroscopy. 7 minutes 27 seconds fluoroscopy time. Follow-up difficult gallbladder surgery COMPARISON :HIDA scan to 11/09/2017. And 10/29/2017. and ultrasound abdomen 10/10/[address] . Remote past CT abdomen 01/28/2015 shows a prominent elevation right hemidiaphragm FINDINGS Side viewing endoscope is in place. Second portion of duodenum with common bile duct selectively cannulated. Injected contrast contrast through the common duct shows that it does decrease caliber and taper just where the gallbladder was resected just below the gallbladder clips. The distal common duct measured up to 4-5 mm on become slightly irregular where it tapers in changes caliber. The common hepatic duct appear to be uniformly narrowed 2-3 mm and there is contrast extending is the intrahepatic system with metallic surgical clips at hilum of liver. There appear to decreased filling or lack of filling of portion of biliary radicles. Believe this would be left lobe but orientation is unclear as I note Dr. Garsia stated there is lack of filling into the right lobe in would defer to his orientation since he position the patient in the the room. A clip near the origin the hepatic duct branch less filling of the involve hepatic duct noted and suspect could be related to this partial hepatic duct obstruction. Initially question wispy contrast just beneath the right lobe of liver under real-time observation while I was in room. Initially question Possible leak from common hepatic here but this did not persist and there is no contrast beneath the elevated right lobe liver,. Equivocal observation possibly collected into the brain A biliary sphincterotomy was performed with drainage of bile from the common duct. The pancreatic duct was not cannulated intentionally. IMPRESSION-------- Possible, suspect partial occlusive injury at hilum of liver near origin of major hepatic duct. 2 postchole[address] drains are in place. Change in caliber & minor irregularity of mid common duct near the resected cystic duct. It of questionable significance Cannot exclude some faint leakage here. Question initially but no persistent concern on subsequent images. No persist tracking to beneath the right lobe of liver did not persist on subsequent injection and images.. Please see ERCP Note from Dr. Garsia which summarizes as well
--- NOTE | 2017-11-12 15:02 | PC.NURSE ---
Drainage noted to be yellow from j/p drain.
--- NOTE | 2017-11-12 15:49 | HMH.PROC ---
[facility] Procedure Note Procedure Note:: ERCP procedure Report: Endoscopic retrograde cholangiopancreatography with biliary sphincterotomy and biliary stent placement Endoscopist: Monty Garsia II, MD Referring Physician: Brennen Chopra MD Date of Procedure: November 12, 2017 Equipment: Olympus 180 side viewing endoscope/duodenal scope Sedation: MAC sedation Indication: Mr. Peña is a 77-year-old gentleman with a bile duct leak subsequent to cholecystectomy. I did get a phone call on Sunday mid by Dr. Brennen Chopra M.D. and he described the surgery. There was severe cholecystitis with fulminant necrosis/gangrene. The patient had difficult dissection. The gallbladder was transected at the infundibulum and there was a small area of continued bile leak noted. There was severe adherence to the posterior tissue. 2 endoloops were placed on the remaining stump. This took place on October 26, 2017. Subsequent follow-up did show elevated total bilirubin of 2.2 and an alkaline phosphatase of 364 and ALT of 447. The patient's hemoglobin and hematocrit were stable at 13.3 and 41.3 with white blood cell count of 8.3. The 2 Domo Mcqueen drains continued to drain a moderate amount of bile and the patient states that these were emptied 3 times nightly. The patient did have a subsequent HIDA scan that did show rapid radionuclide which noted into the drains as early as 10 minutes into the HIDA scan study. At the same time there was radionuclide in the biliary system and into the small bowel. ERCP is performed for further evaluation. Procedure: Prior to the procedure, a history and physical exam was performed, and patient's medications and allergies were reviewed. The risks, benefits and alternatives of the sedation and procedure were discussed with the patient. All questions were answered and informed consent was obtained. The patient was brought to the fluoroscopic radiology room. Patient identification and proposed procedure were verified by the physician and the nurse. The patient was placed in a swimmer's position between left lateral decubitus and prone position and the scope was passed under direct vision. Throughout the procedure, the patient's blood pressure, pulse, and oxygen saturations were monitored continuously. The ERCP was accomplished without difficulty. The patient tolerated the procedure well. Findings: The side-viewing endoscope was passed directly into the upper esophagus and advanced to the second portion of the duodenum. The upper digestive tract anatomy appeared normal. There was some minor edema adjacent to the ampulla. The common bile duct was selectively cannulated. The cholangiogram showed normal filling of the common bile duct which was 4-5 mm in diameter. There were no filling defects. The common hepatic duct appeared to narrow uniformly to 2 mm and there was contrast filling into the intrahepatic biliary system. However, there appeared to be 2 radio opaque clips at the hilum and there appeared to be filling of primarily the left intrahepatic biliary system and there did not appear to be filling of the right intrahepatic biliary system. The clips were right at the hilum where the right system takeoff would be and raise concern that there was transection of the right hepatic duct. There did not appear to be extravasation of contrast with filling of the bile duct and intrahepatic biliary system. I was still concerned about possible leak around the common hepatic duct even though I could not see this any significant contrast leakage. I did perform biliary sphincterotomy with 10 [place]/5 cm straight biliary stent placement. There was drainage of bile and contrast. The pancreatic duct was not cannulated intentionally. Impression: 1. Suspected type B occlusive injury to the right hepatic duct with bile duct leak-status post biliary sphincterotomy/10 [place]/5 cm straight biliary stent Plan: I did speak with Dr. Brennen Chopra M.D. in
--- NOTE | 2017-11-12 15:53 | P.PCN_ITS ---
[facility] Procedure Note Procedure Note:: ERCP procedure Report: Endoscopic retrograde cholangiopancreatography with biliary sphincterotomy and biliary stent placement Endoscopist: Monty Garsia II, MD Referring Physician: Brennen Chopra MD Date of Procedure: November 12, 2017 Equipment: Olympus 180 side viewing endoscope/duodenal scope Sedation: MAC sedation Indication: Mr. Peña is a 77-year-old gentleman with a bile duct leak subsequent to cholecystectomy. I did get a phone call on Sunday mid by Dr. Brennen Chopra M.D. and he described the surgery. There was severe cholecystitis with fulminant necrosis/gangrene. The patient had difficult dissection. The gallbladder was transected at the infundibulum and there was a small area of continued bile leak noted. There was severe adherence to the posterior tissue. 2 endoloops were placed on the remaining stump. This took place on October. Subsequent follow-up did show elevated total bilirubin of 2.2 and an alkaline phosphatase of 364 and ALT of 447. The patient's hemoglobin and hematocrit were stable at 13.3 and 41.3 with white blood cell count of 8.3. The 2 Domo Mcqueen drains continued to drain a moderate amount of bile and the patient states that these were emptied 3 times nightly. The patient did have a subsequent HIDA scan that did show rapid radionuclide which noted into the drains as early as 10 minutes into the HIDA scan study. At the same time there was radionuclide in the biliary system and into the small bowel. ERCP is performed for further evaluation. Procedure: Prior to the procedure, a history and physical exam was performed, and patient' s medications and allergies were reviewed. The risks, benefits and alternatives of the sedation and procedure were discussed with the patient. All questions were answered and informed consent was obtained. The patient was brought to the fluoroscopic radiology room. Patient identification and proposed procedure were verified by the physician and the nurse. The patient was placed in a swimmer's position between left lateral decubitus and prone position and the scope was passed under direct vision. Throughout the procedure , the patient's blood pressure, pulse, and oxygen saturations were monitored continuously. The ERCP was accomplished without difficulty. The patient tolerated the procedure well. Findings: The side-viewing endoscope was passed directly into the upper esophagus and advanced to the second portion of the duodenum. The upper digestive tract anatomy appeared normal. There was some minor edema adjacent to the ampulla. The common bile duct was selectively cannulated. The cholangiogram showed normal filling of the common bile duct which was 4-5 mm in diameter. There were no filling defects. The common hepatic duct appeared to narrow uniformly to 2 mm and there was contrast filling into the intrahepatic biliary system. However, there appeared to be 2 radio opaque clips at the hilum and there appeared to be filling of primarily the left intrahepatic biliary system and there did not appear to be filling of the right intrahepatic biliary system. The clips were right at the hilum where the right system takeoff would be and raise concern that there was transection of the right hepatic duct. There did not appear to be extravasation of contrast with filling of the bile duct and intrahepatic biliary system. I was still concerned about possible leak around the common hepatic duct even though I could not see this any significant contrast leakage. I did perform biliary sphincterotomy with 10 [place]/5 cm straight biliary stent placement. There was drainage of bile and contrast. The pancreatic duct was not cannulated
[2017-11-15 15:07] LABS: POC Glucose,Bedside 61 mg/dL (70-110)
== END 2017-11-12 17:16 | disposition home or self-care (01) ==
PROVIDERS: PCP Family Medicine; Visit Provider Internal Medicine Gastroenterology
DX: K81.0 Acute cholecystitis (principal); K91.89 Other postprocedural complications and disorders of digestive system
CPT/HCPCS: 43274; 74330; 82962; C2617; Q9967

== ENCOUNTER → 2018-03-18 10:27 | Outpatient (CLI) | payer MEDICARE, SELFPAY ==
[2018-03-18 10:52] LABS: Basophils % 0.4 % (0.1-2.0); Eosinophils # 0.3 K/mm3 (0.0-0.4); Eosinophils % 3.2 % (0.1-12.0); Hematocrit 36.8 % (42.0-52.0); Hemoglobin 11.4 g/dL (14.1-18.0); Lymphocytes # 3.1 K/mm3 (0.7-4.5); Lymphocytes % 31.4 K/mm3 (10-50); Mean Corpuscular HGB Conc 31.1 g/dL (31.8-35.4); Mean Corpuscular Hemoglobin 28.3 pg (27.0-31.2); Mean Corpuscular Volume 91.1 fl (80-94); Monocytes # 0.6 K/mm3 (0.1-1.0); Neutrophils # 5.9 K/mm3 (1.8-7.8); Platelet Count 334 K/mm3 (142-424); Red Blood Count 4.04 M/mm3 (4.60-6.20); Red Cell Distribution Width 13.5 % (11.5-17.5)
[2018-03-18 12:23] LABS: Alanine Aminotransferase 33 U/L (12-78); Albumin Level 2.5 gm/dL (3.4-5.0); Albumin/Globulin Ratio 0.6 (1.1-1.8); Alkaline Phosphatase 147 U/L (46-116); Anion Gap 14.5 mEq/L (5-15); Aspartate Amino Transferase 34 U/L (15-37); Bilirubin,Total 0.3 mg/dL (0.2-1.0); Blood Urea Nitrogen 43 mg/dL (7-18); Calcium 8.6 mg/dL (8.5-10.1); Carbon Dioxide 22 mmol/L (21.0-32.0); Chloride 108 mmol/L (98-107); Estimated Glomerular Filt Rate 42 ml/min (>60); GFR (African American) 51 ML/MIN (>60); Globulin 4.2 gm/dl (1.3-3.2); Glucose 150 mg/dL (74-106); Potassium 4.5 mmoL/L (3.5-5.1); Sodium 140 mmol/L (136-145); Total Protein,Serum 6.7 gm/dL (6.4-8.2)
== END ==
PROVIDERS: Visit Provider Transplant Surgery
DX: Z98.0 Intestinal bypass and anastomosis status (principal); Z79.899 Other long term (current) drug therapy
CPT/HCPCS: 36415; 80053; 85025

== ENCOUNTER → 2018-04-12 11:01 | Outpatient (POV) | payer MEDICARE, SELFPAY | PROVIDERS: Family Provider Family Medicine; PCP Family Medicine; Visit Provider Podiatrist | DX: Z00.00 Encounter for general adult medical examination without abnormal findings (principal) ==

== ENCOUNTER → 2018-05-27 13:42 | Outpatient (CLI) | payer MEDICARE, SELFPAY ==
--- NOTE | 2018-05-27 13:53 | XR_ITS ---
XR chest 2V HISTORY: ITS.REASON: CHEST WALL PAIN ORDERING PHYSICIAN: Salud Snider PATIENT AGE: 78 years COMPARISON: 10/30/2017 FINDINGS: Unremarkable cardiovascular structures. There is mild elevation of the right hemidiaphragm. There are bibasilar atelectatic changes. Rib detail films suggest a nondisplaced fracture left seventh rib. No evidence of pneumothorax or other significant anomalies. IMPRESSION: Possible nondisplaced left seventh rib fracture with bi basilar atelectasis
--- NOTE | 2018-05-27 13:54 | XR_ITS ---
XR scapula RT CLINICAL INDICATION: Pain ITS.REASON: CHEST WALL PAIN ORDERING PHYSICIAN: Salud Snider PATIENT AGE: 78 years Comparison: None FINDINGS: No fracture or dislocation. No lytic or blastic change. There are osteoarthritic changes of the acromioclavicular joint. IMPRESSION: Osteoarthritis of the acromioclavicular joint otherwise negative
--- NOTE | 2018-05-27 13:54 | XR_ITS ---
XR ribs LT 2V HISTORY: ITS.REASON: CHEST WALL PAIN ORDERING PHYSICIAN: Salud Snider PATIENT AGE: 78 years Comparison: 10/30/2017 FINDINGS: A frontal view of the chest shows atelectatic changes in both lower lobes. Normal heart size. Upper lobes are clear.. Multiple views of the Left ribs were obtained. There is minimal cortical irregularity involving the lateral aspect of the left seventh rib possibly related to a nondisplaced fracture. IMPRESSION: Possible nondisplaced seventh rib fracture with bibasilar atelectasis
--- NOTE | 2018-05-27 13:54 | XR_ITS ---
EXAM: XR cervical spine 2V HISTORY: ITS.REASON: NECK PAIN ORDERING PHYSICIAN: Salud Snider PATIENT AGE: 78 years COMPARISON: None FINDINGS: There is reversal of the upper cervical lordosis which may be due to patient positioning or muscle spasm. Moderate to severe degenerative disc disease is present at C3-C4, C4-C5, and C5-C6. Facet arthritic changes are present from C3 to C7. No fracture or dislocation. No lytic or blastic change. IMPRESSION: Degenerative disc disease/cervical spondylosis as described above
== END ==
PROVIDERS: PCP Family Medicine; Visit Provider Nurse Practitioner Family
DX: M54.2 Cervicalgia (principal); R07.89 Other chest pain
CPT/HCPCS: 71046; 71100; 72040; 73010

== ENCOUNTER 2018-06-10 14:00 | Outpatient (RCR) | payer MEDICARE, SELFPAY | END 2018-06-10 14:01 | disposition home or self-care (01) | LOC: PT 14:00 | PROVIDERS: Family Provider Family Medicine; PCP Family Medicine; Visit Provider Orthopaedic Surgery | DX: M43.26 Fusion of spine, lumbar region (principal); M54.5 Low back pain | CPT/HCPCS: 97010; 97014; 97110; 97112; 97116; 97163; G0283 ==

== ENCOUNTER → 2018-06-12 13:25 | Outpatient (REF) | payer MEDICARE, SELFPAY | LOC: LAB 13:25 | PROVIDERS: Visit Provider Urology | DX: N39.0 Urinary tract infection, site not specified (principal) | CPT/HCPCS: 87086; 87088; 87186 ==

== ENCOUNTER → 2018-06-18 08:07 | Outpatient (POV) | payer MEDICARE, SELFPAY | PROVIDERS: Family Provider Family Medicine; PCP Family Medicine; Visit Provider Dermatology | DX: Z00.00 Encounter for general adult medical examination without abnormal findings (principal) ==

== ENCOUNTER 2018-06-21 09:30 | Outpatient (RCR) | payer MEDICARE, SELFPAY | END 2018-06-21 09:31 | disposition home or self-care (01) | LOC: PT 09:30 | PROVIDERS: Family Provider Family Medicine; PCP Family Medicine; Visit Provider Orthopaedic Surgery | DX: M54.2 Cervicalgia (principal) | CPT/HCPCS: 97010; 97012; 97014; 97035; 97110; 97140; 97163; G0283 ==

== ENCOUNTER → 2018-06-25 07:54 | Outpatient (POV) | payer MEDICARE, SELFPAY | PROVIDERS: Family Provider Family Medicine; PCP Family Medicine; Visit Provider Dermatology | DX: Z00.00 Encounter for general adult medical examination without abnormal findings (principal) ==

== ENCOUNTER → 2018-07-09 08:30 | Outpatient (POV) | payer MEDICARE, SELFPAY | PROVIDERS: Visit Provider Dermatology | DX: Z00.00 Encounter for general adult medical examination without abnormal findings (principal) ==

== ENCOUNTER → 2018-07-18 09:40 | Outpatient (POV) | payer MEDICARE, SELFPAY | PROVIDERS: Visit Provider Podiatrist | DX: Z00.00 Encounter for general adult medical examination without abnormal findings (principal) ==

== ENCOUNTER → 2018-07-23 07:36 | Outpatient (CLI) | payer MEDICARE, SELFPAY ==
[2018-07-23 08:11] LABS: Blood Urea Nitrogen 14 mg/dL (7-18); Creatinine,Serum 1.71 mg/dL (0.70-1.30); Estimated Glomerular Filt Rate 39 ml/min (>60); GFR (African American) 47 ML/MIN (>60)
--- NOTE | 2018-07-23 09:37 | MR_ITS ---
MR ankle LT wo/w con HISTORY: Posterior tibial tendon dysfunction. Dorsal foot and ankle pain ITS.REASON: Posterior Tibial Tendon dysfunction bilateral LE ORDERING PHYSICIAN: Elena Hollins DPM PATIENT AGE: 78 years Comparison: 08/07/2017 TECHNIQUE: Standard multiplanar multiecho sequences are performed without contrast. FINDINGS: No fracture or dislocation evident. No abnormal bone marrow edema. There is a small amount fluid within the ankle joint. Small amount fluid is also present along the anterior tibiotalar region and at the tibiofibular region. The ligaments about the ankle appear intact. There is an os trigonum and with a small amount of fluid along the posterior aspect of the talocalcaneal region with some fluid also noted in Kager's fat pad. There is thickening of the posterior tibial tendon distally just proximal to the navicular insertion consistent with insertional tendinitis. Slight increased interstitial T2 signal also noted which represent interstitial tear. No significant. The flexor hallucis longus and flexor digitorum longus tendons as well as the peroneal tendons have an unremarkable appearance. There is a small amount of fluid along the peroneal tendon sheath suggesting tendinitis. IMPRESSION: 1. The findings are consistent with tendinosis/tendinitis of the navicular insertion portion of the posterior tibialis tendon with possible interstitial tear 2. Ankle joint effusion with a small amount fluid along the anterior aspect of the tibiotalar region and the talocalcaneal region. 3. Small amount fluid within the peroneal tendon sheath which may indicate tendinitis
--- NOTE | 2018-07-23 09:37 | MR_ITS ---
MR foot LT wo/w con HISTORY: Foot pain, pain and swelling medially ITS.REASON: Posterior Tibial Tendon dysfunction bilateral LE ORDERING PHYSICIAN: Elena Hollins DPM PATIENT AGE: 78 years Comparison: None TECHNIQUE: Standard multiplanar multiecho sequences are performed without and with gadolinium enhancement. FINDINGS: Please see ankle report for hindfoot and ankle evaluation. The mid and forefoot have an unremarkable appearance aside from some mild osteoarthritic change at the first MTP joint. No bone marrow edema or fluid collections are evident. No fracture or dislocation. No ligamentous abnormalities. IMPRESSION: 1. Osteoarthritic change of the first metatarsophalangeal joint. 2. Otherwise negative MRI of the mid and forefoot
--- NOTE | 2018-07-23 11:46 | HMH.ITSHM ---
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 []POTASSIUM PHOSPHATE SODIUM TERAZOSIN INSULIN DOXAZOSIN FERROUS SULFATE TRIAMCINAZONE VITAMIN C HYDROXYZINE AMLODIPINE CARVEDILOL HYDRALAZINE MIRTAZAPINE MONTELUKAST PAROXETINE
== END ==
PROVIDERS: Visit Provider Podiatrist
DX: M76.821 Posterior tibial tendinitis, right leg (principal); M76.822 Posterior tibial tendinitis, left leg
CPT/HCPCS: 36415; 73223; 73720; 82565; 84520; A9576

== ENCOUNTER 2018-08-05 08:49 | Outpatient (CLI) | payer MEDICARE, SELFPAY ==
[2018-08-05 09:10] VITALS: BP 151/70; PULSE 73; RESP 18; O2SAT 96
[2018-08-05 09:40] VITALS: BP 132/67; PULSE 63; RESP 18
== END 2018-08-05 09:40 | disposition home or self-care (01) ==
LOC: INF 08:49
PROVIDERS: Visit Provider Nurse Practitioner Family
DX: D50.9 Iron deficiency anemia, unspecified (principal); T45.4X5A Adverse effect of iron and its compounds, initial encounter
CPT/HCPCS: 96365; J1439

== ENCOUNTER 2018-08-12 08:56 | Outpatient (CLI) | payer MEDICARE, SELFPAY ==
[2018-08-12 09:15] VITALS: BP 140/77; PULSE 65; RESP 18; TEMP 36.3; O2SAT 99
[2018-08-12 09:45] VITALS: BP 136/72; PULSE 68; RESP 18; O2SAT 98
[2018-08-12 09:55] VITALS: BP 141/79; PULSE 69; RESP 18; O2SAT 98
== END 2018-08-12 09:55 | disposition home or self-care (01) ==
LOC: INF 08:57
PROVIDERS: Visit Provider Nurse Practitioner Family
DX: D50.9 Iron deficiency anemia, unspecified (principal); T45.4X5A Adverse effect of iron and its compounds, initial encounter
CPT/HCPCS: 96365; J1439

== ENCOUNTER → 2018-09-23 10:56 | Outpatient (CLI) | payer MEDICARE, SELFPAY ==
--- NOTE | 2018-09-23 11:05 | XR_ITS ---
XR chest 2V, XR ribs LT 2V HISTORY: Fall with left lower chest pain. ITS.REASON: CHEST WALL PAIN ORDERING PHYSICIAN: Salud Snider PATIENT AGE: 78 years Technique: 1.... LEFT RIBS. Oblique views along with frontal view chest above and below diaphragm 2.... CXR. 2 view COMPARISON: May 27, 2018 rib series and CXR Also a October 2017 CXR. ========= LEFT RIBS . There is a old healed appearing fracture at the anterolateral left fifth rib At the Anterior Left Ninth Rib end and costochondral junction, there is additional density and mild irregularity compared to the October 2017.. I suspect there has been a minimal fracture here although the age is somewhat indeterminate. There does seem to be some increased density suggesting early healing-which would suggest that this may be recent rather than acute,. However if If focally tender here this it could indeed be a very recent or acute fracture at ninth rib-costochondral junction.. (with the overlapping costochondral calcification accounting for the increased density here rather than early healing.) The left lung remains well-expanded and clear with no acute findings otherwise. ======== CXR 2 VIEW. No acute findings in the chest. Left lung appears well-expanded and clear with no acute findings. No pneumothorax from recent left chest injury. Right chest: Mild elevation right hemidiaphragm is similar to the previous October & May 2018 study. Slight blunting at the right CP angle reflects reflecting minor chronic pleural changes, as well as seen on those prior studies as well. Scant pleural thickening along lateral right CP angle again noted as was evident on Oct 2017. .. Other areas of minimal residual linear scarring and atelectasis above right hemidiaphragm again noted. Heart aron and mediastinal structures appear stable. Minor stable compression fractures at mid thoracic vertebra unchanged. No new findings T-spine. --------IMPRESSION 1.. LEFT RIBS Minor fracture irregularity at the anterior ninth rib end.. Age-indeterminate ... Mild irregularity & increased density at anterior ninth rib end/& at its costochondral junction. ... These features were not evident on rib series ... Age of this right ninth rib end fracture- somewhat indeterminate. .. Slight increased density is somewhat suggestive of early healing of a recent fracture,,, but could be acute if focally tender here.Correlation required 2.... CHEST ... No acute findings .... Left lung clear- no active disease. No pneumothorax ... Right lung.-stable elevation right hemidiaphragm Stable mild chronic changes right lung base
== END ==
PROVIDERS: PCP Family Medicine; Visit Provider Nurse Practitioner Family
DX: R07.89 Other chest pain (principal)
CPT/HCPCS: 71046; 71100

== ENCOUNTER → 2018-09-24 17:02 | Outpatient (CLI) | payer MEDICARE, SELFPAY | PROVIDERS: Visit Provider Podiatrist | DX: L60.0 Ingrowing nail (principal) | CPT/HCPCS: 87070; 87077; 87186; 87205 ==

== ENCOUNTER → 2018-10-03 10:24 | Outpatient (POV) | payer MEDICARE, SELFPAY | PROVIDERS: Visit Provider Podiatrist | DX: Z00.00 Encounter for general adult medical examination without abnormal findings (principal) ==

== ENCOUNTER → 2018-11-07 09:09 | Outpatient (POV) | payer MEDICARE, SELFPAY | PROVIDERS: Visit Provider Podiatrist | DX: Z00.00 Encounter for general adult medical examination without abnormal findings (principal) ==

== ENCOUNTER 2019-02-07 15:00 | Outpatient (RCR) | payer MEDICARE, SELFPAY ==
--- NOTE | 2019-01-07 10:47 | HMH.PTOPEV ---
PT Outpatient Evaluation Rehab PT Outpatient Evaluation Start: 01/07/19 10:27 Freq: Status: Active Protocol: Document 01/07/19 10:27 SHILO (Rec: 01/07/19 10:47 SHILO [id number]) Electronically Signed By Al Mayberry, PT 01/07/19 10:27 Outpatient Therapy Subjective History Subjective History Pt is a 79 year old male presenting to outpatient PT with reports of chronic low back pain and BLE weakness that has progressively gotten worse over the past year after a discharge from hospital 2017. 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 Pt reports progressive decline in BLE strength resulting in 3 falls over the past year. One incidence resulted in multiple rib fractures. Comorbidities include B TKA, global OA, R rotator cuff tear, diabetes, hx of lumbar fusion L 3-5 and B cataracts. Pt also reports hx of bilateral arch collaps and complains of BLE swelling. Chief Complaint Pain,Weakness Symptom Type Ache,Dull Symptoms Relieved By Rest/Positioning,Prescription Meds Symptoms Aggravated By Standing,Walking Prior Functional Limitations None Current Functional Limitations Lifting,Housework,Sleeping, Standing,Squatting,Recreation Activity,Walking,Bending/ Stooping Symptom Description Constant but Variable Level of pain today (0-10) 5 Pain scale - at its best (0-10) 3 Pain scale - at its worst (0-10) 8 Lumbopelvic Eval Posture Thoracic Spine Posture Standing Position Increased Kyphosis Lumbar Spine Posture Standing Position Decreased Lordosis Gait Observation General Gait Pattern Observation Wide Based Gait Palapation tenderness bilateral lumbar spinal tenderness Yes: 3/4 paraspinal tenderness Yes: 3/4 buttock tenderness Yes: 3/4 Accessory Movement L2 bilateral L3
== END 2019-02-07 15:35 | disposition home or self-care (01) ==
LOC: PT 15:00
PROVIDERS: Visit Provider Nurse Practitioner Family
DX: M54.9 Dorsalgia, unspecified; M62.81 Muscle weakness (generalized)
CPT/HCPCS: 97010; 97014; 97035; 97110; 97140; 97163; G0283

== ENCOUNTER → 2019-04-29 15:36 | Outpatient (CLI) | payer MEDICARE, SELFPAY | PROVIDERS: Visit Provider Urology | DX: N39.0 Urinary tract infection, site not specified (principal); R31.9 Hematuria, unspecified | CPT/HCPCS: 87077; 87086; 87088 ==

== ENCOUNTER → 2019-07-15 15:44 | Outpatient (CLI) | payer MEDICARE, SELFPAY ==
--- NOTE | 2019-07-15 15:49 | XR_ITS ---
PROCEDURE: XR LUMBAR SPINE MIN 4V CLINICAL INDICATION: BACK STRAIN Chronic low back pain COMPARISON: ABDPELW/O CT ABD PELVIS W/O CONTRAST from 01/28/2015 FINDINGS: There is straightening of the lumbar lordosis. Severe degenerative disc disease is present at L2-L3 and L3-L4 with 5 mm retrolisthesis of L3. Postsurgical changes with posterior fusion inter pedicular screws are noted at L4-L5 and S1. There is anterolisthesis of L5 on S1 of 7 mm. No acute fracture or dislocation is evident. There is generalized vascular calcification. Bony hypertrophic changes are present at L4 and L5 laterally from the prior fusion. There is a curvilinear area of sclerosis involving the right SI region likely from old surgery. IMPRESSION: Degenerative disc disease with postsurgical changes as detailed above Dictated by: Alexander Garza MD 07/15/2019 16:26 Electronically signed by Alexander Garza MD in [place] 07/15/2019 16:26
== END ==
PROVIDERS: PCP Family Medicine; Visit Provider Family Medicine
DX: S39.012A Strain of muscle, fascia and tendon of lower back, initial encounter (principal)
CPT/HCPCS: 72110

== ENCOUNTER → 2019-08-13 15:06 | Outpatient (CLI) | payer MEDICARE, SELFPAY ==
--- NOTE | 2019-08-13 15:10 | XR_ITS ---
PROCEDURE: XR ANKLE RT MIN 3V CLINICAL INDICATION: SPRAIN OF RT ANKLE Posttraumatic pain COMPARISON: ANKR3 ANKLE-RT-3 VIEWS from 08/07/2017 FINDINGS: Nondisplaced oblique fracture involves the distal shaft of the fibula. Fracture exits medially 2 cm proximal to the ankle joint. There is generalized vascular calcification. Degenerative changes are present in the midfoot. There is overlying soft tissue swelling laterally IMPRESSION: Nondisplaced oblique fracture of the distal shaft of the fibula Dictated by: Alexander Garza MD 08/13/2019 15:41 Electronically signed by Alexander Garza MD in [place] 08/13/2019 15:41
== END ==
PROVIDERS: PCP Physician Assistant; Visit Provider Physician Assistant
DX: S93.401A Sprain of unspecified ligament of right ankle, initial encounter (principal)
CPT/HCPCS: 73610

== ENCOUNTER → 2019-08-20 14:25 | Outpatient (CLI) | payer MEDICARE, SELFPAY ==
--- NOTE | 2019-08-20 14:26 | US_ITS ---
APPROVED REPORT Exam Type: Lower Extremity Segmental Pressures [employer] Officer: Daisha Higuera RVT Indications Claudication: Bilaterally Rest Pain: Bilaterally Risk Factors Hypertension Diabetes Pressures/Indices Right Indices Left Indices Brachial 182.00 mmHg Brachial 181.00 mmHg Low Thigh 219.00 mmHg 1.20 Low Thigh 211.00 mmHg 1.16 Calf 203.00 mmHg 1.12 Calf 160.00 mmHg 0.88 Ankle(PT) 163.00 mmHg 0.90 Ankle(PT) 158.00 mmHg 0.87 Ankle(DP) 130.00 mmHg 0.71 Ankle(DP) 186.00 mmHg 1.02 Digit 81.00 mmHg 0.45 Digit 83.00 mmHg 0.46 Findings RT TONE:0.90 LT TONE:0.87 RT TBI:0.45 LT TBI:0.46 DECREASED WAVEFORMS LT ANKLE PULSES CONSISENT WITH RESTRICTIVE FLOW Conclusion RT TONE:0.90 lower normal LT TONE:0.87 slightly low suggesting mild vascular disease TBIs slightly low DECREASED WAVEFORMS LT ANKLE PULSES CONSISENT WITH RESTRICTIVE FLOW Electronically signed by : Alexander Garza MD 08/21/2019 18:15:07
== END ==
PROVIDERS: PCP Physician Assistant; Visit Provider Podiatrist
DX: I73.9 Peripheral vascular disease, unspecified (principal)
CPT/HCPCS: 93923

== ENCOUNTER → 2019-08-29 13:13 | Outpatient (CLI) | payer MEDICARE, SELFPAY ==
[2019-08-29 13:50] LABS: Blood Urea Nitrogen 33 mg/dL (7-18); Creatinine,Serum 2.71 mg/dL (0.70-1.30); Estimated Glomerular Filt Rate 23 ml/min (>60); GFR (African American) 28 ML/MIN (>60)
== END ==
PROVIDERS: PCP Physician Assistant; Visit Provider Internal Medicine Cardiovascular Disease
DX: R68.89 Other general symptoms and signs (principal); R09.89 Other specified symptoms and signs involving the circulatory and respiratory systems
CPT/HCPCS: 36415; 82565; 84520

== ENCOUNTER → 2019-09-04 08:15 | Outpatient (CLI) | payer MEDICARE, SELFPAY ==
[2019-09-04 09:02] LABS: Anion Gap 13.4 mEq/L (5-15); Blood Urea Nitrogen 30 mg/dL (7-18); Calcium 8.3 mg/dL (8.5-10.1); Carbon Dioxide 24 mmol/L (21.0-32.0); Chloride 110 mmol/L (98-107); Estimated Glomerular Filt Rate 21 ml/min (>60); GFR (African American) 26 ML/MIN (>60); Glucose 90 mg/dL (74-106); Potassium 3.4 mmoL/L (3.5-5.1); Sodium 144 mmol/L (136-145)
--- NOTE | 2019-09-04 09:52 | XR_ITS ---
PROCEDURE: XR FOOT WT BEARING RT 3V CLINICAL INDICATION: fracture/ dislocation f/u Follow-up fracture COMPARISON: FTL3 FOOT-LT-3 VIEWS from 08/07/2017 FTR3 FOOT-RT-3 VIEWS from 08/07/2017 FINDINGS: There are osteoarthritic changes of the metatarsal tarsal junction, 1st metatarsophalangeal joint, and tarsal bones with hypertrophy of the cuneiform metatarsal junction dorsally. Flexion deformity is present of 2nd through 5th toes. No acute fracture or dislocation evident. Osteoarthritic changes are present at the posterior subtalar joint IMPRESSION: Degenerative changes, no acute finding Dictated by: Alexander Garza MD 09/05/2019 05:21 Electronically signed by Alexander Garza MD in [place] 09/05/2019 05:21
--- NOTE | 2019-09-04 09:52 | XR_ITS ---
PROCEDURE: XR TIBIA FIBULA RT 2V CLINICAL INDICATION: fracture/ dislocation f/u Fracture dislocation follow-up COMPARISON: XR ANKLE RT MIN 3V from 08/13/2019 XR ANKLE WT BEARING RT MIN 3V from 09/04/2019 prosthesis present which appears to be in good position. There is generalized vascular calcification. In oblique nondisplaced fracture involves the distal shaft of the fibula with generalized soft tissue swelling. FINDINGS: No change nondisplaced distal fibular fracture IMPRESSION: No acute findings. Dictated by: Alexander Garza MD 09/05/2019 05:17 Electronically signed by Alexander Garza MD in [place] 09/05/2019 05:17
--- NOTE | 2019-09-04 09:52 | XR_ITS ---
PROCEDURE: XR ANKLE WT BEARING RT MIN 3V CLINICAL INDICATION: fracture/ dislocation f/u COMPARISON: ANKR3 ANKLE-RT-3 VIEWS from 08/07/2017 ANKL3 ANKLE-LT-3 VIEWS from 08/07/2017 XR ANKLE RT MIN 3V from 08/13/2019 XR TIBIA FIBULA RT 2V from 09/04/2019 FINDINGS: Nondisplaced fracture once again noted involving the distal shaft of the fibula. Fracture line is still visible. There is generalized vascular calcification. IMPRESSION: No change nondisplaced distal fibular fracture Dictated by: Alexander Garza MD 09/05/2019 05:19 Electronically signed by Alexander Garza MD in [place] 09/05/2019 05:19
== END ==
LOC: LAB 08:16 → RAD 09:46
PROVIDERS: Nurse Practitioner Family; PCP Family Medicine; Visit Provider Podiatrist
DX: M79.604 Pain in right leg (principal); R68.89 Other general symptoms and signs; T14.8XXA Other injury of unspecified body region, initial encounter
CPT/HCPCS: 36415; 73590; 73610; 73630; 80048

== ENCOUNTER → 2019-09-16 08:41 | Outpatient (CLI) | payer MEDICARE, SELFPAY ==
[2019-09-16 08:52] LABS: Microscopic, Urine URINE MICROSCOPIC (MICROSCOPIC)
[2019-09-16 09:17] LABS: Appearance,Urine CLEAR (Clear); Bilirubin,Urine Negative (Negative); Blood, Urine Negative (Negative); Color,Urine YELLOW (Yellow); Glucose,Urine (UA) Negative (Negative); Ketones,Urine Negative (Negative); Leukocyte Esterase,Urine TRACE (Negative); Nitrate,Urine POSITIVE (Negative); PH,Urine 6.5 (5.0-8.5); Protein,Urine 3+ (Negative); Specific Gravity, Urine 1.025 (1.005-1.030); Urobilinogen,Urine 0.2 EU/dl (0.2)
[2019-09-16 09:21] LABS: Creatinine,Urine Random 94 mg/dL (20-320)
[2019-09-16 09:27] LABS: Bacteria,Urine 4+ /lpf; WBC,Urine TNTC #/hpf (0-3)
[2019-09-16 10:00] LABS: Albumin Level 2.5 gm/dL (3.4-5.0); Anion Gap 15.2 mEq/L (5-15); Blood Urea Nitrogen 30 mg/dL (7-18); Carbon Dioxide 24 mmol/L (21.0-32.0); Chloride 109 mmol/L (98-107); Creatinine,Serum 2.89 mg/dL (0.70-1.30); Estimated Glomerular Filt Rate 21 ml/min (>60); GFR (African American) 26 ML/MIN (>60); Glucose 72 mg/dL (74-106); Phosphorous 3.9 mg/dL (2.4-4.9); Potassium 3.2 mmoL/L (3.5-5.1); Sodium 145 mmol/L (136-145)
[2019-09-17 12:20] LABS: Vitamin D 25 Hydroxy 21.1 ng/mL (30.0-100.0)
[2019-09-19 06:51] LABS: Parathyroid Hormone Intact 134 pg/mL (15-65)
== END ==
PROVIDERS: Visit Provider Internal Medicine Nephrology
DX: N18.3 Chronic kidney disease, stage 3 (moderate) (principal); N25.81 Secondary hyperparathyroidism of renal origin; E55.9 Vitamin D deficiency, unspecified; R82.90 Unspecified abnormal findings in urine
CPT/HCPCS: 36415; 80069; 81001; 82570; 82652; 83970; 84155; 87086

== ENCOUNTER → 2019-09-23 11:54 | Outpatient (CLI) | payer MEDICARE, SELFPAY ==
--- NOTE | 2019-09-23 12:30 | XR_ITS ---
PROCEDURE: XR TIBIA FIBULA RT 2V CLINICAL INDICATION: leg pain COMPARISON: XR TIBIA FIBULA RT 2V from 09/04/2019 FINDINGS: There is a healing distal fibular fracture. There has been a prior total knee replacement. There is generalized vascular calcification. No acute finding of the tibia. IMPRESSION: Healing distal fibular fracture Dictated by: Alexander Garza MD 09/23/2019 14:07 Electronically signed by Alexander Garza MD in [place] 09/23/2019 14:07
--- NOTE | 2019-09-23 12:30 | XR_ITS ---
PROCEDURE: XR ANKLE WT BEARING RT MIN 3V CLINICAL INDICATION: ankle pain Follow-up fracture, ankle pain COMPARISON: ANKR3 ANKLE-RT-3 VIEWS from 08/07/2017 ANKL3 ANKLE-LT-3 VIEWS from 08/07/2017 XR ANKLE RT MIN 3V from 08/13/2019 XR ANKLE WT BEARING RT MIN 3V from 09/04/2019 FINDINGS: There is healing fracture of the distal shaft of the fibula with developing callus formation with only minimal offset of the fracture fragments. IMPRESSION: Healing distal fibular fracture with good alignment Dictated by: Alexander Garza MD 09/23/2019 14:05 Electronically signed by Alexander Garza MD in [place] 09/23/2019 14:05
--- NOTE | 2019-09-23 12:30 | XR_ITS ---
PROCEDURE: XR FOOT WT BEARING RT 3V CLINICAL INDICATION: foot pain But pain COMPARISON: FTL3 FOOT-LT-3 VIEWS from 08/07/2017 FTR3 FOOT-RT-3 VIEWS from 08/07/2017 XR FOOT WT BEARING RT 3V from 09/04/2019 XR ANKLE WT BEARING RT MIN 3V from 09/23/2019 FINDINGS: No fracture or dislocation. No lytic or blastic change. There is normal mineralization. Mild osteoarthritic change of the 1st metatarsophalangeal joint, tarsal metatarsal junction. Generalized osteopenia. IMPRESSION: Mild osteoarthritic change Dictated by: Alexander Garza MD 09/23/2019 14:02 Electronically signed by Alexander Garza MD in [place] 09/23/2019 14:02
== END ==
PROVIDERS: PCP Family Medicine; Referring Provider Podiatrist; Visit Provider Internal Medicine Nephrology
DX: M79.604 Pain in right leg (principal); M25.571 Pain in right ankle and joints of right foot; M79.671 Pain in right foot; E87.6 Hypokalemia
CPT/HCPCS: 36415; 73590; 73610; 73630; 82088; 84244

== ENCOUNTER → 2019-09-26 07:38 | Outpatient (CLI) | payer MEDICARE, SELFPAY ==
[2019-09-26 07:54] LABS: Basophils # 0.1 K/mm3 (0-0.2); Basophils % 0.8 % (0.1-2.0); Eosinophils # 0.5 K/mm3 (0.0-0.4); Eosinophils % 6.1 % (0.1-12.0); Hematocrit 35.6 % (42.0-52.0); Hemoglobin 11.7 g/dL (14.1-18.0); Lymphocytes % 26.6 % (10-50); Mean Corpuscular HGB Conc 32.8 g/dL (31.8-35.4); Mean Corpuscular Hemoglobin 29.6 pg (27.0-31.2); Mean Corpuscular Volume 90.3 fl (80-94); Mean Platelet Volume 8.5 fl (7.4-10.4); Monocytes # 0.6 K/mm3 (0.1-1.0); Monocytes % 7.3 % (1.7-9.3); Neutrophils # 4.5 K/mm3 (1.8-7.8); Neutrophils % 59.3 % (37.0-80.0); Platelet Count 211 K/mm3 (142-424); Red Blood Count 3.94 M/mm3 (4.60-6.20); White Blood Count 7.6 K/mm3 (4.8-10.8)
[2019-09-26 09:34] LABS: Albumin Level 2.5 gm/dL (3.4-5.0); Anion Gap 12.4 mEq/L (5-15); Blood Urea Nitrogen 21 mg/dL (7-18); Calcium 8.1 mg/dL (8.5-10.1); Carbon Dioxide 25 mmol/L (21.0-32.0); Chloride 109 mmol/L (98-107); Creatinine,Serum 2.95 mg/dL (0.70-1.30); Estimated Glomerular Filt Rate 21 ml/min (>60); GFR (African American) 25 ML/MIN (>60); Glucose 111 mg/dL (74-106); Phosphorous 4.2 mg/dL (2.4-4.9); Potassium 3.4 mmoL/L (3.5-5.1); Prostate Specific Ag, Diagnost 2.57 ng/mL (0.0-4.0); Sodium 143 mmol/L (136-145)
[2019-09-28 18:01] LABS: Parathyroid Hormone Intact 150 pg/mL (15-65); Vitamin D 25 Hydroxy 21.5 ng/mL (30.0-100.0)
[2019-10-02 12:38] LABS: Renin Activity, Plasma 0.546
== END ==
PROVIDERS: Visit Provider Internal Medicine Nephrology
DX: N18.4 Chronic kidney disease, stage 4 (severe) (principal); N25.81 Secondary hyperparathyroidism of renal origin; N40.0 Benign prostatic hyperplasia without lower urinary tract symptoms; E87.6 Hypokalemia; E55.9 Vitamin D deficiency, unspecified
CPT/HCPCS: 36415; 80069; 82652; 83970; 84153; 84244; 85025

== ENCOUNTER → 2019-10-14 09:27 | Outpatient (CLI) | payer MEDICARE, SELFPAY ==
--- NOTE | 2019-10-14 09:36 | XR_ITS ---
PROCEDURE: XR ANKLE WT BEARING RT MIN 3V CLINICAL INDICATION: fracture follow up Pain, follow-up fracture COMPARISON: ANKL3 ANKLE-LT-3 VIEWS from 08/07/2017 XR ANKLE RT MIN 3V from 08/13/2019 XR ANKLE WT BEARING RT MIN 3V from 09/04/2019 XR ANKLE WT BEARING RT MIN 3V from 09/23/2019 FINDINGS: There is a nondisplaced oblique fracture involving the distal shaft of the fibula with developing callus formation consistent with healing of the fracture. There is good alignment. The ankle mortise is preserved and the talar dome has an unremarkable appearance. There is pes planus and there is generalized vascular calcification. IMPRESSION: Nondisplaced healing right distal fibular fracture Dictated by: Alexander Garza MD 10/14/2019 10:13 Electronically signed by Alexander Garza MD in [place] 10/14/2019 10:13
== END ==
PROVIDERS: PCP Family Medicine; Visit Provider Podiatrist
DX: T14.8XXA Other injury of unspecified body region, initial encounter (principal); S82.831D Other fracture of upper and lower end of right fibula, subsequent encounter for closed fracture with routine healing
CPT/HCPCS: 73610

== ENCOUNTER → 2019-10-15 10:27 | Outpatient (CLI) | payer MEDICARE, SELFPAY ==
[2019-10-15 11:26] LABS: Basophils % 0.5 % (0.1-2.0); Eosinophils # 0.4 K/mm3 (0.0-0.4); Hematocrit 35.3 % (42.0-52.0); Hemoglobin 11.3 g/dL (14.1-18.0); Lymphocytes # 1.8 K/mm3 (0.7-4.5); Lymphocytes % 22.7 % (10-50); Mean Corpuscular HGB Conc 31.9 g/dL (31.8-35.4); Mean Corpuscular Hemoglobin 29.8 pg (27.0-31.2); Mean Corpuscular Volume 93.3 fl (80-94); Mean Platelet Volume 7.8 fl (7.4-10.4); Monocytes # 0.5 K/mm3 (0.1-1.0); Monocytes % 5.8 % (1.7-9.3); Neutrophils # 5.3 K/mm3 (1.8-7.8); Platelet Count 220 K/mm3 (142-424); Red Blood Count 3.79 M/mm3 (4.60-6.20); Red Cell Distribution Width 14.1 % (11.5-17.5); White Blood Count 8.1 K/mm3 (4.8-10.8)
[2019-10-15 13:32] LABS: Alanine Aminotransferase 18 U/L (12-78); Albumin Level 2.6 gm/dL (3.4-5.0); Albumin/Globulin Ratio 0.8 (1.1-1.8); Alkaline Phosphatase 121 U/L (46-116); Anion Gap 15.2 mEq/L (5-15); Aspartate Amino Transferase 19 U/L (15-37); Bilirubin,Total 0.6 mg/dL (0.2-1.0); Blood Urea Nitrogen 27 mg/dL (7-18); Calcium 8.4 mg/dL (8.5-10.1); Carbon Dioxide 24 mmol/L (21.0-32.0); Chloride 110 mmol/L (98-107); Creatinine,Serum 3.05 mg/dL (0.70-1.30); Estimated Glomerular Filt Rate 20 ml/min (>60); GFR (African American) 24 ML/MIN (>60); Globulin 3.1 gm/dl (1.3-3.2); Glucose 86 mg/dL (74-106); Potassium 4.2 mmoL/L (3.5-5.1); Sodium 145 mmol/L (136-145); Thyroid Stimulating Hormone 10.17 uIU/ml (0.358-3.740); Total Protein,Serum 5.7 gm/dL (6.4-8.2)
[2019-10-15 13:50] LABS: Free T4 (Free Thyroxine) 0.91 ng/dl (0.76-1.46)
== END ==
PROVIDERS: Visit Provider Otolaryngology
DX: E01.0 Iodine-deficiency related diffuse (endemic) goiter (principal); G11.9 Hereditary ataxia, unspecified; R29.6 Repeated falls; R42 Dizziness and giddiness; E07.9 Disorder of thyroid, unspecified
CPT/HCPCS: 36415; 80053; 84439; 84443; 85025

== ENCOUNTER → 2019-10-20 09:09 | Outpatient (CLI) | payer MEDICARE, SELFPAY ==
--- NOTE | 2019-10-20 09:09 | MR_ITS ---
PROCEDURE: MR HEAD/BRAIN WO CON CLINICAL INDICATION: unsteady gait Imbalance, blurry vision, falling COMPARISON: No exams were available for comparison TECHNIQUE: Routine multiplanar multi echo sequences are performed without gadolinium enhancement. FINDINGS: No midline shift, mass effect, intracranial hemorrhage, or hydrocephalus is evident. There is a moderate degree cortical atrophy with moderate periventricular and subcortical T2 white matter hyperintensity consistent with ischemic gliotic change from microvascular disease. There are multiple dilated perivascular spaces. Small area of increased diffusion signal is noted in the right frontal parietal white matter. This however is felt to be due to T2 shine through also hyperintense on the ADC images consistent with a chronic small lacunar infarction. No acute infarction is evident. The cerebellopontine angles are unremarkable. There is some increased T2 signal within the central aspect of the janice and may be related to ischemic gliotic change. There is opacification of the left mastoid sinus and there is a small amount of fluid in the right mastoid sinus is well. The pituitary, optic chiasm, corpus callosum, and craniocervical junction are unremarkable. There are degenerative changes in the cervical spine with degenerative disc disease and narrowing of the canal at C3-C4 and C4-C5. IMPRESSION: 1. No acute intracranial findings. 2. Atrophy with chronic ischemic gliotic change. 3. Bilateral mastoid sinus disease left more extensive than right Dictated by: Alexander Garza MD 10/21/2019 07:02 Electronically signed by Alexander Garza MD in [place] 10/21/2019 07:02
== END ==
PROVIDERS: PCP Family Medicine; Visit Provider Otolaryngology
DX: R27.0 Ataxia, unspecified (principal)
CPT/HCPCS: 70551

== ENCOUNTER → 2019-10-27 07:50 | Outpatient (CLI) | payer MEDICARE, SELFPAY ==
[2019-10-27 08:17] LABS: Basophils # 0.1 K/mm3 (0-0.2); Basophils % 0.7 % (0.1-2.0); Eosinophils # 0.4 K/mm3 (0.0-0.4); Eosinophils % 5.3 % (0.1-12.0); Lymphocytes # 2.1 K/mm3 (0.7-4.5); Lymphocytes % 25.1 % (10-50); Mean Corpuscular HGB Conc 31.3 g/dL (31.8-35.4); Mean Corpuscular Hemoglobin 28.9 pg (27.0-31.2); Mean Corpuscular Volume 92.3 fl (80-94); Monocytes # 0.6 K/mm3 (0.1-1.0); Monocytes % 7.4 % (1.7-9.3); Neutrophils # 5.1 K/mm3 (1.8-7.8); Neutrophils % 61.6 % (37.0-80.0); Platelet Count 199 K/mm3 (142-424); Red Cell Distribution Width 13.8 % (11.5-17.5); White Blood Count 8.3 K/mm3 (4.8-10.8)
[2019-10-27 11:26] LABS: Albumin Level 2.7 gm/dL (3.4-5.0); Blood Urea Nitrogen 30 mg/dL (7-18); Calcium 8.4 mg/dL (8.5-10.1); Carbon Dioxide 24 mmol/L (21.0-32.0); Chloride 111 mmol/L (98-107); Creatinine,Serum 3.03 mg/dL (0.70-1.30); Estimated Glomerular Filt Rate 20 ml/min (>60); GFR (African American) 24 ML/MIN (>60); Glucose 72 mg/dL (74-106); Phosphorous 4.5 mg/dL (2.4-4.9); Prostate Specific Ag Screen 1.8 ng/mL (0.0-4.0); Sodium 148 mmol/L (136-145)
[2019-10-29 15:06] LABS: Parathyroid Hormone Intact 167 pg/mL (15-65)
== END ==
PROVIDERS: Visit Provider Internal Medicine Nephrology
DX: N18.4 Chronic kidney disease, stage 4 (severe) (principal); N25.81 Secondary hyperparathyroidism of renal origin; N40.0 Benign prostatic hyperplasia without lower urinary tract symptoms; Z12.5 Encounter for screening for malignant neoplasm of prostate
CPT/HCPCS: 36415; 80069; 82652; 83970; 85025; G0103

== ENCOUNTER → 2019-11-17 07:43 | Outpatient (CLI) | payer MEDICARE, SELFPAY ==
[2019-11-17 09:36] LABS: Chloride 105 mmol/L (98-107); Sodium 139 mmol/L (136-145)
[2019-11-17 09:37] LABS: Potassium 3.2 mmoL/L (3.5-5.1)
[2019-11-17 09:39] LABS: Blood Urea Nitrogen 25 mg/dl (9-20); Estimated Glomerular Filt Rate 21 ml/min (>60); GFR (African American) 26 ML/MIN (>60)
[2019-11-17 09:40] LABS: Anion Gap 12.2 mEq/L (5-15); Calcium 8.8 mg/dl (8.4-10.2); Carbon Dioxide 25 mmol/L (22.0-30.0); Glucose 67 mg/dl (74-100)
== END ==
PROVIDERS: Visit Provider Internal Medicine Nephrology
DX: N18.4 Chronic kidney disease, stage 4 (severe) (principal)
CPT/HCPCS: 36415; 80048

== ENCOUNTER 2019-11-21 09:00 | Outpatient (RCR) | payer MEDICARE, SELFPAY ==
--- NOTE | 2019-09-30 11:02 | HMH.PTOPEV ---
PT Outpatient Evaluation Rehab PT Outpatient Evaluation Start: 09/30/19 09:52 Freq: Status: Active Protocol: Document 09/30/19 10:46 SHILO (Rec: 09/30/19 11:02 SHILO [id number]) Electronically Signed By Al Mayberry, PT 09/30/19 10:46 Outpatient Therapy Subjective History Subjective History Patient is a 79 year old male presenting to outpatient PT with reports of R ankle pain S /P R distal fibular fracture 08/12/19 (7 weeks S/P). 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 Pt ambulates into clinic with CAM walker and B axillary cruthches. Comorbidities include hx of B TKA, lumbar spine surgeries, renal failure , R rotator cuff tear and diabetes. Chief Complaint Pain,Stiff Symptom Type Burning Symptoms Relieved By Rest/Positioning Symptoms Aggravated By Standing,Physical Activity, Walking Prior Functional Limitations None Current Functional Limitations Housework,Standing,Squatting, Recreation Activity,Walking, Stairs,Balance Symptom Description Intermittent Level of pain today (0-10) 0 Pain scale - at its best (0-10) 0 Pain scale - at its worst (0-10) 2 Ankle/Foot Eval Gait Observation General Gait Pattern Observation Decrease Weight Bear (R) Assistive Device Ambulation Assistive Device Axillary Crutches Palpation Tenderness right Ankle/Foot Palpation Findings Tenderness Ankle/Foot Palpation Overall Comment Lateral malleolus 2/4 ROM Ankle/Foot Dorsiflexion w/Knee Extended -4 Active Range Motion (degrees) Ankle/Foot Dorsiflexion w/Knee Extended 2 Passive Range (degrees) Ankle/Foot Plantar Flexion Active Range WNL of Motion (degrees) Ankle/Foot Eversion Active Range of 20 Motion (degrees) Ankle/Foot Inversion Active Range of 30 Motion (degrees) Ankle/Foot ROM Limitations Soft Tissue Tightness Great Toe ROM Reason Not Measured Within Functional Limits Accessory Movements Ankle Accessory Movements that Elicit Fibular Dorsal [place],Fibular Symptoms Ventral [place] MMT right Ankle Dorsiflexion Strength Grade 4 Good Ankle Plantarflexion Strength Grade 4 Good Foot Eversion Strength Grade 4- Good- Foot Inversion Strength Gr
--- NOTE | 2019-11-21 10:26 | HMH.RHREAS ---
Rehab Reassessment Rehab OP Re-assessment Start: 11/05/19 13:07 Freq: Status: Active Protocol: Document 11/21/19 10:14 KENARNOLD (Rec: 11/21/19 10:26 SHILO [id number]) Electronically Signed By Al Mayberry, PT 11/21/19 10:14 Rehab Re-assessment Subjective Subjective Pt reports 60% improvement since start of care. Objective Objective Notes AROM: DF 10; PF WNL; INV 29; EV 30 Pain: 0/10 Assessment Progress Assessment Progressing as Expected Assessment Notes Patient is tolerating progression or Rx well. Main concern is difficulty with proprioception/balance activities. Pt continues to report falls at home from tripping and loss of balance. Patient has experienced 3-4 fall since start of care. Pain in the L ankle has not been an issue. AROM has progressed well as noted above . MMT slightly improved, but deficits/asymmetries persist. Pt continues to have difficulty with standing/ ambulatory activities mainly secondary to proprioceptive deficits. We have integrated progression of hip/quad/ hamsting strengthening along with foot/ankle strengthening to help with proprioception. Persistent deficits contribute to functional limitations with household, ADL and recreational activities. Patient goals met STG's; LTG [id number] Goals Not Met LTG 3 6 7 Revised Goals NA Plan Plan Continue with POC Frequency of Therapy 2 Duration of therapy 4-6 Time and Billing Re-Eval Time 15 Re-Eval Billing Units 1 PHYSICIAN CERTIFICATION: I certify the specified therapy services for Ronny Peña are required, authorized, and reviewed every 30 days.
== END 2019-11-21 10:00 | disposition home or self-care (01) ==
LOC: PT 09:00
PROVIDERS: PCP Family Medicine; Visit Provider Podiatrist
DX: S82.831D Other fracture of upper and lower end of right fibula, subsequent encounter for closed fracture with routine healing (principal)
CPT/HCPCS: 97110; 97112; 97163; 97164

== ENCOUNTER → 2020-01-12 08:57 | Outpatient (CLI) | payer MEDICARE, SELFPAY ==
[2020-01-12 10:53] LABS: Basophils # 0.3 K/mm3 (0-0.2); Basophils % 2.5 % (0.1-2.0); Eosinophils # 0.1 K/mm3 (0.0-0.4); Eosinophils % 0.6 % (0.1-12.0); Hematocrit 34.7 % (42.0-52.0); Hemoglobin 11.2 g/dL (14.1-18.0); Lymphocytes # 1.1 K/mm3 (0.7-4.5); Lymphocytes % 10.4 % (10-50); Mean Corpuscular HGB Conc 32.1 g/dL (31.8-35.4); Mean Corpuscular Hemoglobin 29.3 pg (27.0-31.2); Mean Corpuscular Volume 91.3 fl (80-94); Mean Platelet Volume 8.7 fl (7.4-10.4); Monocytes # 0.8 K/mm3 (0.1-1.0); Monocytes % 7.9 % (1.7-9.3); Neutrophils # 8.2 K/mm3 (1.8-7.8); Neutrophils % 78.6 % (37.0-80.0); Platelet Count 170 K/mm3 (142-424); White Blood Count 10.5 K/mm3 (4.8-10.8)
[2020-01-12 11:58] LABS: Albumin Level 3.2 g/dl (3.5-5.0); Chloride 104 mmol/L (98-107); Sodium 137 mmol/L (136-145)
[2020-01-12 12:00] LABS: Blood Urea Nitrogen 43 mg/dl (9-20); Estimated Glomerular Filt Rate 16 ml/min (>60); GFR (African American) 20 ML/MIN (>60)
[2020-01-12 12:01] LABS: Calcium 8.9 mg/dl (8.4-10.2); Carbon Dioxide 22 mmol/L (22.0-30.0); Glucose 112 mg/dl (74-100)
[2020-01-12 12:33] LABS: Ferritin 329 ng/ml (17.9-464)
[2020-01-12 17:12] LABS: Adenovirus,PCR Not Detected (NotDetected); Bordetella Pertussis Not Detected (NotDetected); Chlamydophila Pneumoniae, PCR Not Detected (NotDetected); Coronavirus 229E Not Detected (NotDetected); Coronavirus NL63 Not Detected (NotDetected); Coronavirus OC43 Not Detected (NotDetected); Coronovirus HKU1,PCR Not Detected (NotDetected); Human Metapneumovirus Not Detected (NotDetected); Influenza A, PCR Not Detected (NotDetected); Influenza AH1, 2009 Not Detected (NotDetected); Influenza AH1, PCR Not Detected (NotDetected); Influenza AH3,PCR Not Detected (NotDetected); Influenza B, PCR Not Detected (NotDetected); Mycoplasma Pneumoniae, PCR Not Detected (NotDetected); Parainfluenza 1, PCR Not Detected (NotDetected); Parainfluenza 2, PCR Not Detected (NotDetected); Parainfluenza 3, PCR Not Detected (NotDetected); Parainfluenza 4, PCR Not Detected (NotDetected); Respiratory Syncytial Virus Not Detected (NotDetected); Rhinovirus/Enterovirus Not Detected (NotDetected)
[2020-01-12 17:14] LABS: Basophils # 0.1 K/mm3 (0-0.2); Basophils % 0.5 % (0.1-2.0); Eosinophils # 0.2 K/mm3 (0.0-0.4); Eosinophils % 2.1 % (0.1-12.0); Hematocrit 33.3 % (42.0-52.0); Hemoglobin 10.5 g/dL (14.1-18.0); Lymphocytes # 1.5 K/mm3 (0.7-4.5); Lymphocytes % 17.4 % (10-50); Mean Corpuscular HGB Conc 31.6 g/dL (31.8-35.4); Mean Corpuscular Hemoglobin 28.6 pg (27.0-31.2); Mean Corpuscular Volume 90.5 fl (80-94); Monocytes # 0.8 K/mm3 (0.1-1.0); Monocytes % 9.6 % (1.7-9.3); Neutrophils # 6.1 K/mm3 (1.8-7.8); Neutrophils % 70.4 % (37.0-80.0); Platelet Count 147 K/mm3 (142-424); Red Blood Count 3.68 M/mm3 (4.60-6.20); Red Cell Distribution Width 14.2 % (11.5-17.5); White Blood Count 8.7 K/mm3 (4.8-10.8)
--- NOTE | 2020-01-12 17:20 | XR_ITS ---
PROCEDURE: XR CHEST AP CLINICAL HISTORY: PATIENT DONE PORTABLE OUTSIDE, FEVER, POSSIBLE COVID PATIENT COMPARISON: CXR2V XR chest 2V from 10/30/2017 CXR2V XR chest 2V from 05/27/2018 CXR2V XR chest 2V from 09/23/2018 FINDINGS: The cardiomediastinal silhouette and pulmonary vascularity are within normal limits. Right hemidiaphragm is elevated with right basilar atelectasis. No lobar consolidation or collapse. No acute bony abnormalities. IMPRESSION: Elevated right hemidiaphragm with right basilar atelectasis Dictated by: Alexander Garza MD 01/12/2020 21:37 Electronically signed by Alexander Garza MD in [place] 01/12/2020 21:37
[2020-01-13 03:39] LABS: Iron 16 ug/dL (38-169); UIBC 163 ug/dL (111-343)
[2020-01-13 11:13] LABS: Alanine Aminotransferase 19 U/L (12-78); Albumin Level 3.2 g/dl (3.5-5.0); Alkaline Phosphatase 137 U/L (38-126); Aspartate Amino Transferase 25 U/L (17-59); Bilirubin,Direct 0.4 mg/dl (0.0-0.4); Bilirubin,Indirect 0.6 mg/dL (0.0-0.9); Bilirubin,Unconjugated 0.7 mg/dL (0.0-1.1); Total Protein,Serum 6.1 g/dl (6.3-8.2)
[2020-01-13 11:31] LABS: Free T4 (Free Thyroxine) 1.28 ng/dl (0.78-2.19)
[2020-01-13 12:44] LABS: Iron Saturation 9 % (15-55)
[2020-01-13 16:21] LABS: Covid-19 Nasal PCR Sendout Lex NOT DETECTED
--- NOTE | 2020-01-13 16:54 | PC.NURSE ---
1635 notified of negative covid-[address] bunn notified 1652 pt notified of negative covid-19 results
== END ==
PROVIDERS: Internal Medicine Nephrology; PCP Family Medicine; Visit Provider Family Medicine
DX: N18.4 Chronic kidney disease, stage 4 (severe) (principal); R50.9 Fever, unspecified; R06.02 Shortness of breath; E03.9 Hypothyroidism, unspecified
CPT/HCPCS: 36415; 71045; 80069; 80076; 82728; 83540; 83550; 84439; 84443; 85025; 87040; 87486; 87581; 87633; 87798; U0003

== ENCOUNTER 2020-01-12 13:41 | Emergency (ER) | payer MEDICARE, SELFPAY ==
[2020-01-12 13:42] VITALS: BP 148/79; PULSE 66; RESP 18; TEMP 36.8; O2SAT 97; BMI 21.7
--- NOTE | 2020-01-12 13:50 | HMH.EDGENADL ---
ED Disposition Clinical Impression: Encounter for medical screening examination Disposition: Home, Self-Care Condition on Discharge: Good Additional Instructions: Follow-up with your primary care provider if you have nonemergent health concerns. Return to the ED for any acute life-threatening concerns. Referrals: Thang Hou MD [Primary Care Provider] - 3 days - Critical Care Critical Care Time: No Attestation: On , the high probability of a clinically significant, sudden or life threatening deterioration of the following system(s) required my full and direct attention, intervention and personal management. The time I documented below is in addition to time spent performing reported procedures but includes the following listed in this critical care notation. Medical Decision Making - Medical Records Medical records reviewed: Yes: I reviewed the patient's medical records. - [place] Inquiry Pt receiving controlled substance: No Medical Decision Narrative: Patient has absolutely no complaints, stable vital signs. He is alert and oriented, no confusion. He has a clear, benign exam. He is afebrile here. Discharged home. Advised follow-up with primary care provider if remains concerned. General Adult HPI - General Stated complaint: chills, had fever this morning Time Seen by Provider: 01/12/20 13:51 Mode of Arrival: Ambulatory Source of Information: Patient Limitations: No Limitations - History of Present Illness HPI narrative: This is an 80-year-old male with a past medical history significant for hypertension, hyperlipidemia, diabetes who presents to the emergency department for medical screening exam. Apparently his was concerned about him and told his doctor that he had fever and chills. Doctor sent him to the emergency room. Patient states his temperature was 98.3 this morning and his temperature is 98.3 here today. No antipyretics. He has absolutely no complaints including no chest pain, shortness of breath, vomiting, diarrhea, abdominal pain. He is alert and oriented in no distress. - Related Data Home Medications Medication Instructions Recorded Confirmed carvedilol 25 mg tablet 25 mg PO BID 10/16/17 11/25/19 finasteride 5 mg tablet 5 mg PO DAILY 10/16/17 11/25/19 montelukast 10 mg tablet 10 mg PO HS 10/16/17 11/25/19 Cholecalciferol (Vitamin D3) 2,000 unit PO DAILY 11/26/18 11/25/19 [Vitamin D3 1,000 Unit Tab] Cyanocobalamin (Vitamin B-12) 1,000 mcg PO DAILY 11/26/18 11/25/19 [Vitamin B-12 1000mcg Tablet] loratadine 10 mg tablet 10 mg PO tab 01/30/19 11/25/19 paroxetine HCl 30 mg tablet mg PO 09/09/19 11/25/19 potassium chloride 20 mEq meq PO 09/09/19 11/25/19 tablet,extended release(part/cryst) ascorbic acid-ascorbate sodium 500 500 mg PO DAILY wafer 09/24/19 11/25/19 mg oral wafer calcitriol 0.25 mcg capsule 0.25 mcg PO cap 09/24/19 11/25/19 hydralazine 25 mg tablet 25 mg PO BID tab 09/24/19 11/25/19 insulin glargine 100 unit/mL 13 unit SQ QHS ml 09/24/19 11/25/19 subcutaneous solution terazosin 10 mg capsule 10 mg PO BID cap 09/24/19 11/25/19 ursodiol 300 mg capsule 300 mg PO DAILY #60 cap 09/24/19 11/25/19 amlodipine 5 mg tablet PO 11/25/19 11/25/19 levothyroxine 50 mcg tablet PO 11/25/19 11/25/19 lisinopril 5 mg tablet PO 11/25/19 11/25/19 Allergies Allergy/AdvReac Type Severity Reaction Status Date / Time levofloxacin Allergy Mild I-HIVES/VICKY Verified 11/25/19 09:28 H sulfamethoxazole Allergy Mild Verified 11/25/19 09:28 [From Bactrim] trimethoprim [From Bactrim] Allergy Mild Verified 11/25/19 09:28 nitrofurantoin Allergy Unknown Rash Verified 11/25/19 09:28 Penicillins Allergy Unknown I-RASH Verified 11/25/19 09:28 [facility] History - Hepatitis A Screen Attestation statement:: This patient has been screened for Hepatitis A risk factors. I have reviewed the patient's past medical history: Yes Medical History: Reports:: Canc
[2020-01-12 14:10] VITALS: BP 120/85; PULSE 87; RESP 20; TEMP 36.8; O2SAT 98
== END 2020-01-12 14:11 | disposition home or self-care (01) ==
PROVIDERS: Emergency Provider Emergency Medicine; PCP Family Medicine
DX: Z13.9 Encounter for screening, unspecified (principal); I10 Essential (primary) hypertension; E11.9 Type 2 diabetes mellitus without complications; E78.5 Hyperlipidemia, unspecified; Z79.899 Other long term (current) drug therapy
CPT/HCPCS: 36415; 71045; 80069; 80076; 82728; 83540; 83550; 84439; 84443; 85025; 87040; 87486; 87581; 87633; 87798; 99281; U0003

== ENCOUNTER 2020-02-03 08:31 | Outpatient (CLI) | payer MEDICARE, SELFPAY ==
[2020-02-03 08:31] VITALS: BP 144/70; PULSE 57; RESP 20; TEMP 36.9; O2SAT 95
[2020-02-03 09:30] VITALS: BP 161/71; PULSE 62; RESP 20; TEMP 36.9; O2SAT 95
== END 2020-02-03 09:30 | disposition home or self-care (01) ==
LOC: INF 08:31
PROVIDERS: Visit Provider Nurse Practitioner Family
DX: D50.9 Iron deficiency anemia, unspecified (principal); T45.4X5A Adverse effect of iron and its compounds, initial encounter
CPT/HCPCS: 96365; J1439

== ENCOUNTER 2020-02-10 08:33 | Outpatient (CLI) | payer MEDICARE, SELFPAY ==
[2020-02-10 09:00] VITALS: BP 179/77; PULSE 54; RESP 18
[2020-02-10 09:40] VITALS: BP 158/76; PULSE 57; RESP 20
== END 2020-02-10 09:40 | disposition home or self-care (01) ==
LOC: INF 08:33
PROVIDERS: Visit Provider Nurse Practitioner Family
DX: D50.9 Iron deficiency anemia, unspecified (principal); T45.4X5A Adverse effect of iron and its compounds, initial encounter
CPT/HCPCS: 96365; J1439

== ENCOUNTER → 2020-02-23 08:17 | Outpatient (CLI) | payer MEDICARE, SELFPAY ==
[2020-02-23 10:31] LABS: Albumin Level 3.3 g/dl (3.5-5.0); Chloride 108 mmol/L (98-107); Sodium 138 mmol/L (136-145)
[2020-02-23 10:33] LABS: Estimated Glomerular Filt Rate 18 ml/min (>60)
[2020-02-23 10:34] LABS: Carbon Dioxide 23 mmol/L (22.0-30.0); Glucose 82 mg/dl (74-100); Phosphorous 4.2 mg/dl (2.5-4.5)
[2020-02-23 10:43] LABS: Anion Gap 10.7 mEq/L (5-15); Potassium 3.7 mmoL/L (3.5-5.1)
[2020-02-23 10:45] LABS: Blood Urea Nitrogen 43 mg/dl (9-20); GFR (African American) 22 ML/MIN (>60)
[2020-02-23 10:46] LABS: Calcium 8.3 mg/dl (8.4-10.2)
[2020-02-23 11:44] LABS: Hemoglobin A1C 5.5 % (4.0-6.0)
== END ==
PROVIDERS: Nurse Practitioner Family
DX: N18.4 Chronic kidney disease, stage 4 (severe) (principal); E11.9 Type 2 diabetes mellitus without complications; Z79.4 Long term (current) use of insulin
CPT/HCPCS: 36415; 80069; 83036

== ENCOUNTER 2020-05-20 09:00 | Outpatient (RCR) | payer MEDICARE, SELFPAY ==
--- NOTE | 2020-02-17 10:48 | HMH.PTOPEV ---
PT Outpatient Evaluation Rehab PT Outpatient Evaluation Start: 02/17/20 10:38 Freq: Status: Active Protocol: Document 02/17/20 10:38 ANITHA (Rec: 02/17/20 10:48 ANITHA [id number]) Electronically Signed By Angelo Chadwick, PT 02/17/20 10:38 Outpatient Therapy Subjective History Subjective History Pt reports h/o deconditioning and balance/unsteadiness issues since 4 month hospitalization 2 yrs ago. Pt reports weakness in BLE, multiple falls d/t unsteady, and vision impairments 2ndry to failed cataract sx. Chief Complaint Gives out/Unstable,Weakness, Decreased Coordination Symptoms Relieved By Activity Symptoms Aggravated By Standing,Physical Activity, Walking Prior Functional Limitations Standing,Walking,Stairs, Balance Current Functional Limitations Standing,Walking,Stairs, Balance Hip/Knee Eval MMT bilateral Hip Flexion Strength Grade 3+ Fair+ Hip Abduction Strength Grade 3+ Fair+ Hip Adduction Strength Grade 3+ Fair+ Hip Extension Strength Grade 4- Good- Hip External Rotation Strength Grade 4- Good- Hip Internal Rotation Strength Grade 4- Good- Knee Extension Strength Grade 4 Good Knee Flexion Strength Grade 4 Good Ankle/Foot Eval MMT Ankle Dorsiflexion Strength Grade 3+ Fair+ Ankle Plantarflexion Strength Grade 4- Good- Foot Eversion Strength Grade 4- Good- Foot Inversion Strength Grade 4- Good- Balance Eval Hx of Falls Hx Falls Yes Number in last 6 months 5 Gait/Posture Asssessment General Gait Observation Narrow Based Gait,Ataxic Gait, Shuffling Step Assistive Devices None / NA Level of Transfer Assist Independent Hip Observation in Gait Swing Circumducted Hip Observation in Gait Stance Excess Flexion,Inadequate Extension Ankle/Foot Observation in Gait Swing Decreased Foot Clearance Ankle/Foot Observation in Gait Stance Pronated Hip Posture Standing Position (L) Flexed,(R) Flexed Body Alignment Posture Leaning,Forward Head Timed Up and Go Test 3. Is the Timed Up and Go Test result < yes 12 seconds? Tinetti Sitting Balance Sitting Balance Steady, safe Arising from Chair Ability to Arise Able, uses arms to help Attempts to Arise Arises on 1st attempt Standing Balance Immediate Standing Balance Unsteady Standing Balance Steady, wide stance Nudged Respo
--- NOTE | 2020-04-20 11:16 | HMH.RHREAS ---
Rehab Reassessment Rehab OP Re-assessment Start: 03/18/20 09:26 Freq: Status: Active Protocol: Document 04/20/20 11:12 ANITHA (Rec: 04/20/20 11:16 ANITHA [id number]) Electronically Signed By Angelo Chadwick, PT 04/20/20 11:12 Rehab Re-assessment Subjective Subjective PT REPORTS IMPROVED STANDING AND WALKING ENDURANCE SINCE I EVAL, AND FEELS ~70% BETTER OVERALL SINCE I EVAL. 'IT'S GETTING BETTER, NO FALLS, BETTER BALANCE, AND I REALLY THINK CONTINUING WOULD BE GOOD '. Objective Objective Notes MMT: B HIP FLX 4/5, HIP ABD, ADD,EXT 4/5, B ANKLE DF 4+/5 TUSEC NO AD TINETTI: 20 Assessment Progress Assessment Progressing as Expected Assessment Notes IMPROVED TUG, STRENGTH Patient goals met STG'S 6/6 LTG'S 4/7 Goals Not Met LTG'S 3/7 Plan Plan PT TO CONT. W/SKILLED P.T. TO MAKE FURTHER IMPROVEMENTS IN STRENGTH, BALANCE, AND GAIT TO ALLOW FOR OPTIMAL FUNCTION Frequency of Therapy 1-2x/wk Duration of therapy 3-4wks Time and Billing Re-Eval Time 15 Re-Eval Billing Units 0 PHYSICIAN CERTIFICATION: I certify the specified therapy services for Ronny Peña are required, authorized, and reviewed every 30 days.
== END 2020-05-20 09:05 | disposition home or self-care (01) ==
LOC: PT 09:00
PROVIDERS: PCP Family Medicine; Visit Provider Nurse Practitioner Family
DX: R29.6 Repeated falls (principal); M62.81 Muscle weakness (generalized)
CPT/HCPCS: 97110; 97112; 97163; 97164

== ENCOUNTER → 2020-05-25 07:50 | Outpatient (CLI) | payer MEDICARE, SELFPAY ==
[2020-05-25 09:15] LABS: Basophils % 0.6 % (0.1-2.0); Eosinophils # 0.4 K/mm3 (0.0-0.4); Eosinophils % 4.4 % (0.1-12.0); Hematocrit 31.6 % (42.0-52.0); Hemoglobin 10.5 g/dL (14.1-18.0); Lymphocytes % 25.4 % (10-50); Mean Corpuscular HGB Conc 33.1 g/dL (31.8-35.4); Mean Corpuscular Volume 93.6 fl (80-94); Mean Platelet Volume 7.7 fl (7.4-10.4); Monocytes # 0.6 K/mm3 (0.1-1.0); Neutrophils % 62.6 % (37.0-80.0); Platelet Count 162 K/mm3 (142-424); Red Blood Count 3.38 M/mm3 (4.60-6.20); Red Cell Distribution Width 13.7 % (11.5-17.5); White Blood Count 7.9 K/mm3 (4.8-10.8)
[2020-05-25 09:19] LABS: Microscopic, Urine URINE MICROSCOPIC (MICROSCOPIC)
[2020-05-25 10:13] LABS: Appearance,Urine CLEAR (Clear); Bilirubin,Urine Negative (Negative); Blood, Urine Negative (Negative); Color,Urine YELLOW (Yellow); Glucose,Urine (UA) Negative (Negative); Ketones,Urine Negative (Negative); Leukocyte Esterase,Urine TRACE (Negative); Nitrate,Urine POSITIVE (Negative); Protein,Urine 2+ (Negative); Specific Gravity, Urine 1.015 (1.005-1.030); Urobilinogen,Urine 0.2 EU/dl (0.2)
[2020-05-25 10:41] LABS: Albumin Level 3.5 g/dl (3.5-5.0); Chloride 105 mmol/L (98-107); Potassium 4.1 mmoL/L (3.5-5.1); Sodium 141 mmol/L (136-145)
[2020-05-25 10:44] LABS: Anion Gap 13.1 mEq/L (5-15); Blood Urea Nitrogen 43 mg/dl (9-20); Carbon Dioxide 27 mmol/L (22.0-30.0); Estimated Glomerular Filt Rate 15 ml/min (>60); GFR (African American) 19 ML/MIN (>60); Iron 72 ug/dL (49-181); Phosphorous 4.6 mg/dl (2.5-4.5)
[2020-05-25 10:45] LABS: Calcium 9.3 mg/dl (8.4-10.2); Glucose 71 mg/dl (74-100)
[2020-05-25 10:53] LABS: Total Iron Binding Capacity 229 ug/dL (261-462)
[2020-05-25 11:00] LABS: Intact Parathyroid Hormone 120.2 pg/mL (7.5-53.5)
[2020-05-25 11:19] LABS: Ferritin 532 ng/ml (17.9-464)
[2020-06-01 14:01] LABS: 1,25 Dihydroxy Vitamin D 42 pg/mL (.); 1,25-Dihydroxy, Vitamin D-2 <10 pg/mL (.); 1,25-Dihydroxy, Vitamin D-3 42 pg/mL (.)
== END ==
PROVIDERS: Visit Provider Student in an Organized Health Care Education/Training Program
DX: N18.4 Chronic kidney disease, stage 4 (severe) (principal)
CPT/HCPCS: 36415; 80069; 81001; 82652; 82728; 83540; 83550; 83970; 85025

== ENCOUNTER → 2020-07-05 08:21 | Outpatient (CLI) | payer MEDICARE, SELFPAY ==
[2020-07-05 08:33] LABS: Microscopic, Urine URINE MICROSCOPIC (MICROSCOPIC)
[2020-07-05 09:10] LABS: Basophils % 0.4 % (0.1-2.0); Eosinophils # 0.3 K/mm3 (0.0-0.4); Eosinophils % 3.3 % (0.1-12.0); Hematocrit 31.3 % (42.0-52.0); Hemoglobin 10.1 g/dL (14.1-18.0); Lymphocytes # 1.5 K/mm3 (0.7-4.5); Mean Corpuscular HGB Conc 32.4 g/dL (31.8-35.4); Mean Corpuscular Hemoglobin 30.6 pg (27.0-31.2); Mean Corpuscular Volume 94.4 fl (80-94); Mean Platelet Volume 8.2 fl (7.4-10.4); Monocytes # 0.5 K/mm3 (0.1-1.0); Monocytes % 6.1 % (1.7-9.3); Neutrophils # 6.2 K/mm3 (1.8-7.8); Neutrophils % 72.2 % (37.0-80.0); Platelet Count 171 K/mm3 (142-424); Red Blood Count 3.32 M/mm3 (4.60-6.20); Red Cell Distribution Width 13.8 % (11.5-17.5); White Blood Count 8.6 K/mm3 (4.8-10.8)
[2020-07-05 09:26] LABS: Appearance,Urine CLEAR (Clear); Bilirubin,Urine Negative (Negative); Blood, Urine Negative (Negative); Color,Urine YELLOW (Yellow); Glucose,Urine (UA) Negative (Negative); Ketones,Urine Negative (Negative); Leukocyte Esterase,Urine TRACE (Negative); Nitrate,Urine Negative (Negative); PH,Urine 5.5 (5.0-8.5); Protein,Urine 2+ (Negative); Urobilinogen,Urine 0.2 EU/dl (0.2)
[2020-07-05 09:40] LABS: Chloride 109 mmol/L (98-107); Sodium 140 mmol/L (136-145)
[2020-07-05 09:41] LABS: Albumin Level 3.1 g/dl (3.5-5.0); Potassium 3.9 mmoL/L (3.5-5.1)
[2020-07-05 09:43] LABS: Blood Urea Nitrogen 60 mg/dl (9-20); Estimated Glomerular Filt Rate 13 ml/min (>60); GFR (African American) 16 ML/MIN (>60)
[2020-07-05 09:44] LABS: Anion Gap 13.9 mEq/L (5-15); Calcium 8.8 mg/dl (8.4-10.2); Carbon Dioxide 21 mmol/L (22.0-30.0); Glucose 73 mg/dl (74-100); Phosphorous 4.9 mg/dl (2.5-4.5)
== END ==
PROVIDERS: Visit Provider Internal Medicine Nephrology
DX: N18.5 Chronic kidney disease, stage 5 (principal)
CPT/HCPCS: 36415; 80069; 81001; 85025

== ENCOUNTER → 2020-07-06 15:31 | Outpatient (CLI) | payer MEDICARE, SELFPAY ==
--- NOTE | 2020-07-06 15:40 | XR_ITS ---
PROCEDURE: XR CHEST PORTABLE CLINICAL HISTORY: COVID OUTPATIENT TESTING Cough COMPARISON: CR CXR2V XR chest 2V from 05/27/2018 CR CXR2V XR chest 2V from 09/23/2018 CR XR CHEST AP from 01/12/2020 FINDINGS: The cardiomediastinal silhouette and pulmonary vascularity are within normal limits. There is dense consolidation involving the upper lobes medially on both sides. Atelectasis or fibrotic change noted in the right lung base. No acute bony abnormalities. IMPRESSION: Bilateral pneumonia Dictated by: Alexander Garza MD 07/07/2020 05:39 Alexander Garza MD in [place] 07/07/2020 05:39
[2020-07-06 16:21] LABS: Basophils % 0.3 % (0.1-2.0); Eosinophils # 0.2 K/mm3 (0.0-0.4); Eosinophils % 2.6 % (0.1-12.0); Hematocrit 33.4 % (42.0-52.0); Hemoglobin 10.4 g/dL (14.1-18.0); Lymphocytes # 1.2 K/mm3 (0.7-4.5); Lymphocytes % 14.3 % (10-50); Mean Corpuscular HGB Conc 31.1 g/dL (31.8-35.4); Mean Corpuscular Hemoglobin 29.9 pg (27.0-31.2); Mean Corpuscular Volume 96.1 fl (80-94); Mean Platelet Volume 8.7 fl (7.4-10.4); Monocytes # 0.5 K/mm3 (0.1-1.0); Monocytes % 6.2 % (1.7-9.3); Neutrophils # 6.4 K/mm3 (1.8-7.8); Neutrophils % 76.5 % (37.0-80.0); Platelet Count 172 K/mm3 (142-424); Red Blood Count 3.48 M/mm3 (4.60-6.20); Red Cell Distribution Width 13.6 % (11.5-17.5); White Blood Count 8.3 K/mm3 (4.8-10.8)
== END ==
PROVIDERS: PCP Nurse Practitioner Family; Visit Provider Nurse Practitioner Family
DX: Z03.818 Encounter for observation for suspected exposure to other biological agents ruled out (principal)
CPT/HCPCS: 36415; 71045; 85025; U0003

== ENCOUNTER → 2020-07-13 13:13 | Outpatient (CLI) | payer MEDICARE, SELFPAY ==
[2020-07-14 08:58] LABS: Covid-19 Nasal PCR Sendout Lex NOT DETECTED
== END ==
PROVIDERS: PCP Nurse Practitioner Family; Visit Provider Nurse Practitioner Family
DX: Z03.818 Encounter for observation for suspected exposure to other biological agents ruled out (principal); N18.5 Chronic kidney disease, stage 5
CPT/HCPCS: U0004

== ENCOUNTER → 2020-08-10 07:28 | Outpatient (CLI) | payer MEDICARE, SELFPAY ==
[2020-08-10 07:45] LABS: Microscopic, Urine URINE MICROSCOPIC (MICROSCOPIC)
[2020-08-10 08:23] LABS: Basophils % 0.6 % (0.1-2.0); Eosinophils # 0.4 K/mm3 (0.0-0.4); Eosinophils % 5.6 % (0.1-12.0); Hematocrit 32.5 % (42.0-52.0); Lymphocytes # 1.6 K/mm3 (0.7-4.5); Lymphocytes % 24.9 % (10-50); Mean Corpuscular HGB Conc 30.6 g/dL (31.8-35.4); Mean Corpuscular Hemoglobin 29.8 pg (27.0-31.2); Mean Corpuscular Volume 97.2 fl (80-94); Mean Platelet Volume 8.4 fl (7.4-10.4); Monocytes # 0.4 K/mm3 (0.1-1.0); Monocytes % 6.2 % (1.7-9.3); Neutrophils # 4.1 K/mm3 (1.8-7.8); Neutrophils % 62.8 % (37.0-80.0); Platelet Count 144 K/mm3 (142-424); Red Blood Count 3.34 M/mm3 (4.60-6.20); Red Cell Distribution Width 13.8 % (11.5-17.5); White Blood Count 6.6 K/mm3 (4.8-10.8)
[2020-08-10 09:13] LABS: Chloride 108 mmol/L (98-107); Sodium 140 mmol/L (136-145)
[2020-08-10 09:14] LABS: Albumin Level 3.4 g/dl (3.5-5.0)
[2020-08-10 09:16] LABS: Blood Urea Nitrogen 52 mg/dl (9-20); Estimated Glomerular Filt Rate 13 ml/min (>60); GFR (African American) 16 ML/MIN (>60)
[2020-08-10 09:17] LABS: Calcium 9.1 mg/dl (8.4-10.2); Carbon Dioxide 26 mmol/L (22.0-30.0); Glucose 84 mg/dl (74-100); Phosphorous 5.2 mg/dl (2.5-4.5)
[2020-08-10 09:20] LABS: Appearance,Urine CLEAR (Clear); Bilirubin,Urine Negative (Negative); Blood, Urine Negative (Negative); Color,Urine YELLOW (Yellow); Glucose,Urine (UA) Negative (Negative); Ketones,Urine Negative (Negative); Leukocyte Esterase,Urine Negative (Negative); Nitrate,Urine Negative (Negative); PH,Urine 5.5 (5.0-8.5); Protein,Urine 2+ (Negative); Specific Gravity, Urine 1.025 (1.005-1.030); Urobilinogen,Urine 0.2 EU/dl (0.2)
[2020-08-10 09:29] LABS: RBC,Urine Occasional #/hpf (0-3)
[2020-08-11 22:04] LABS: Hep B Surface Ab, Qual Non Reactive (.); Hepatitis B Surface Antigen Negative (Negative); Hepatitis C Antibody <0.1 s/co ratio (0.0-0.9)
== END ==
PROVIDERS: Visit Provider Nurse Practitioner
DX: N18.5 Chronic kidney disease, stage 5 (principal); Z99.2 Dependence on renal dialysis
CPT/HCPCS: 36415; 80069; 81001; 85025; 86706; 87340; 87380

== ENCOUNTER → 2020-09-13 07:31 | Outpatient (CLI) | payer MEDICARE, SELFPAY ==
[2020-09-13 07:36] LABS: Microscopic, Urine URINE MICROSCOPIC (MICROSCOPIC)
[2020-09-13 08:10] LABS: Appearance,Urine CLEAR (Clear); Bilirubin,Urine Negative (Negative); Blood, Urine Negative (Negative); Color,Urine YELLOW (Yellow); Glucose,Urine (UA) Negative (Negative); Ketones,Urine Negative (Negative); Leukocyte Esterase,Urine 1+ (Negative); Nitrate,Urine POSITIVE (Negative); PH,Urine 5.5 (5.0-8.5); Protein,Urine 1+ (Negative); Urobilinogen,Urine 0.2 EU/dl (0.2)
[2020-09-13 08:14] LABS: Basophils # 0.1 K/mm3 (0-0.2); Basophils % 0.9 % (0.1-2.0); Eosinophils # 0.5 K/mm3 (0.0-0.4); Eosinophils % 6.7 % (0.1-12.0); Hematocrit 33.9 % (42.0-52.0); Hemoglobin 10.9 g/dL (14.1-18.0); Lymphocytes # 1.7 K/mm3 (0.7-4.5); Lymphocytes % 22.6 % (10-50); Mean Corpuscular HGB Conc 32.1 g/dL (31.8-35.4); Mean Corpuscular Hemoglobin 30.6 pg (27.0-31.2); Mean Corpuscular Volume 95.3 fl (80-94); Mean Platelet Volume 8.3 fl (7.4-10.4); Monocytes # 0.5 K/mm3 (0.1-1.0); Monocytes % 6.2 % (1.7-9.3); Neutrophils # 4.9 K/mm3 (1.8-7.8); Neutrophils % 63.7 % (37.0-80.0); Platelet Count 198 K/mm3 (142-424); Red Blood Count 3.56 M/mm3 (4.60-6.20); Red Cell Distribution Width 14.5 % (11.5-17.5); White Blood Count 7.7 K/mm3 (4.8-10.8)
[2020-09-13 08:17] LABS: Bacteria,Urine 1+ /lpf
[2020-09-13 09:26] LABS: Albumin Level 3.5 g/dl (3.5-5.0); Chloride 112 mmol/L (98-107); Potassium 3.8 mmoL/L (3.5-5.1); Sodium 142 mmol/L (136-145)
[2020-09-13 09:28] LABS: Blood Urea Nitrogen 49 mg/dl (9-20); Estimated Glomerular Filt Rate 12 ml/min (>60); GFR (African American) 15 ML/MIN (>60)
[2020-09-13 09:29] LABS: Anion Gap 12.8 mEq/L (5-15); Calcium 9.4 mg/dl (8.4-10.2); Carbon Dioxide 21 mmol/L (22.0-30.0); Glucose 108 mg/dl (74-100); Iron 60 ug/dL (49-181); Phosphorous 4.9 mg/dl (2.5-4.5)
[2020-09-13 09:38] LABS: Total Iron Binding Capacity 213 ug/dL (261-462)
[2020-09-13 09:57] LABS: Hemoglobin A1C 5.1 % (4.0-6.0)
[2020-09-13 10:05] LABS: Ferritin 343 ng/ml (17.9-464)
[2020-09-14 12:03] LABS: 25-OH Vitamin D, Total 72.5 ng/mL (30-100)
== END ==
PROVIDERS: Visit Provider Internal Medicine Nephrology
DX: D64.9 Anemia, unspecified (principal); N18.5 Chronic kidney disease, stage 5; E55.9 Vitamin D deficiency, unspecified; E11.21 Type 2 diabetes mellitus with diabetic nephropathy; Z79.4 Long term (current) use of insulin; R82.90 Unspecified abnormal findings in urine
CPT/HCPCS: 36415; 80069; 81001; 82306; 82652; 82728; 83036; 83540; 83550; 85025; 87086; 87088; 87186

== ENCOUNTER → 2020-10-11 07:37 | Outpatient (CLI) | payer MEDICARE, SELFPAY ==
[2020-10-11 08:00] LABS: Microscopic, Urine URINE MICROSCOPIC (MICROSCOPIC)
[2020-10-11 08:58] LABS: Appearance,Urine CLEAR (Clear); Bilirubin,Urine Negative (Negative); Blood, Urine Negative (Negative); Color,Urine YELLOW (Yellow); Glucose,Urine (UA) Negative (Negative); Ketones,Urine Negative (Negative); Leukocyte Esterase,Urine 1+ (Negative); Nitrate,Urine POSITIVE (Negative); Protein,Urine 1+ (Negative); Urobilinogen,Urine 0.2 EU/dl (0.2)
[2020-10-11 09:24] LABS: Squamous Epithelial Cell,Urine Occasional #/hpf (0-5)
[2020-10-11 10:04] LABS: Calcium 9.3 mg/dl (8.4-10.2); Glucose 104 mg/dl (74-100)
[2020-10-11 15:33] LABS: Albumin Level 3.7 g/dl (3.5-5.0); Anion Gap 14.5 mEq/L (5-15); Carbon Dioxide 27 mmol/L (22.0-30.0); Chloride 100 mmol/L (98-107); Estimated Glomerular Filt Rate 10 ml/min (>60); GFR (African American) 12 ML/MIN (>60); Phosphorous 6.8 mg/dl (2.5-4.5); Potassium 3.5 mmoL/L (3.5-5.1); Sodium 138 mmol/L (136-145)
[2020-10-11 18:07] LABS: Blood Urea Nitrogen 81 mg/dl (9-20)
[2020-10-12 12:06] LABS: Hep B Surface Ab, Qual Non Reactive (.); Hepatitis B Surface Antigen Negative (Negative)
[2020-10-13 15:41] LABS: Hepatitis Be Antibody Negative (Negative)
== END ==
PROVIDERS: Visit Provider Internal Medicine Nephrology
DX: N39.0 Urinary tract infection, site not specified (principal); N18.5 Chronic kidney disease, stage 5
CPT/HCPCS: 36415; 80069; 81001; 86706; 86707; 87086; 87088; 87186; 87340

== ENCOUNTER → 2020-10-18 11:11 | Outpatient (CLI) | payer MEDICARE, SELFPAY | PROVIDERS: PCP Family Medicine; Visit Provider Student in an Organized Health Care Education/Training Program | DX: Z20.822 Contact with and (suspected) exposure to COVID-19 (principal) | CPT/HCPCS: U0003 ==

== ENCOUNTER → 2021-03-01 10:21 | Outpatient (CLI) | payer MEDICARE, SELFPAY ==
--- NOTE | 2021-03-01 10:22 | US_ITS ---
APPROVED REPORT Exam Type: Lower Extremity Segmental Pressures Jig Hand: Daisha Higuera RVT Indications Claudication: Bilaterally Rest Pain: Bilaterally BILATERAL DECREASED PULSES,DM Risk Factors Hypertension Diabetes Pressures/Indices Right Indices Left Indices Brachial 110.00 mmHg Brachial Low Thigh 155.00 mmHg 1.41 Low Thigh 174.00 mmHg 1.58 Calf 111.00 mmHg 1.01 Calf 99.00 mmHg 0.90 Ankle(PT) 70.00 mmHg 0.64 Ankle(PT) 199.00 mmHg 1.81 Ankle(DP) 64.00 mmHg 0.58 Ankle(DP) 160.00 mmHg 1.45 Digit 33.00 mmHg 0.30 Digit 23.00 mmHg 0.21 Findings RT TONE:0.64 LT TONE:1.81 RT TBI:0.30 LT TBI:0.21 DECREASED WAVEFORMS LEFT ANKLE PULSES CONSISNET WITH RESTRICTIVE FLOW TBI'S LOW LT BRACHIAL-PT HAS FISTULA LT ARM Conclusion RT TONE:0.64 LT TONE:1.81 RT TBI:0.30 LT TBI:0.21 DECREASED WAVEFORMS LEFT ANKLE PULSES CONSISNET WITH RESTRICTIVE FLOW TBI'S LOW LT BRACHIAL-PT HAS FISTULA LT ARM Electronically signed by : Ronny Child MD 03/04/2021 15:22:23
== END ==
PROVIDERS: PCP Family Medicine; Visit Provider Podiatrist
DX: R09.89 Other specified symptoms and signs involving the circulatory and respiratory systems (principal)
CPT/HCPCS: 93923

== ENCOUNTER → 2021-03-22 11:47 | Outpatient (CLI) | payer MEDICARE, SELFPAY ==
--- NOTE | 2021-03-22 12:02 | NM_ITS ---
APPROVED REPORT Exam: Nuclear Stress Test Indication: CAD, HTN, DM, HYPERLIPIDEMIA, SOB, FATIGUE, DIZZINESS Patient Location: Outpatient Stress Tech: Jennifer Michaud DC Tech:Deepali Reyna, ARRT, RT (R)(N) Ht: 6 ft 0 in Wt: 160 lbs HR: 72 bpm BP: 146/69 mmHg BSA: 1.94 m2 History: CAD, HTN, DM, HYPERLIPIDEMIA, SOB, FATIGUE, DIZZINESS Procedure: Patient received a 0.4 mg of intravenous Lexiscan, resting heart rate 72 bpm, resting blood pressure 146/69 mmHg, with Lexiscan maximum heart rate achived was 81 bpm which is % of the maximum predicted heart rate and blood pressure was 138/61 mmHg. With Lexiscan, patient denied any complaint of chest pain. Cardiac Stress and Resting SPECT Images: Cardiac Stress and Resting SPECT images were obtained using technetium 99m Myoview 30.2 mCi stress and 10.37 mCi at rest. Ejection fraction: 56% No wall motion abnormality. No fixed or reversible defects. Conclusion: Normal Electronically signed by : Alexander aGrza MD 03/25/2021 14:03:51
--- NOTE | 2021-03-22 13:23 | HMH.ITSHM ---
Current Home Medications as stated by this patient Ronny Peña or billing customer service representative. []URSODIOL TERAZOSIN SEVELAMER PAROXETINE MONTELUKAST LEVOTHYROXINE INSULIN HYDRALAZINE FUROSEMIDE FINASTERIDE VITAMIN D3 CARVEDILOL CALCITRIOL VITAMIN C AMLODIPINE VITAMIN B12
--- NOTE | 2021-03-22 14:14 | CA_ITS ---
APPROVED REPORT Exam: Pharmacologic Technologist: Jennifer Michaud, Ht: 6 ft 0 in Wt: 163 lbs BSA: 1.95 m2 HR: 72 bpm BP: 146/69 mmHg Medical History Medications: Levothyroxine,,,,, Hydralazine,,,,, Vitamin C,,,,, Vitamin D3,,,,, Carvedilol,,,,, INSULIN,,,,, Norvasc,,,,, Montelukast,,,,, PaXIL,,,,, Finasteride,,,,, CalciTRiol,,,,, URSODIol,,,,, Stress Test Details Test: LEXISCAN HR Resting HR: 79 bpm Max Heart Rate (APMHR): 139.972257 bpm Max HR Achieved: 90 bpm Target HR (85% APMHR): 118.483336 bpm % of APMHR: 64.75 Recovery HR: 81 bpm BP Resting BP: 146/69 mmHg Max BP: 152/74 mmHg Recovery BP: 152.0/74.0 mmHg ECG Clinical Exercise duration: 04:01 min Highest Stage Achieved: Stress ECG Conclusion Symptoms: None. Arrhythmias/Ectopy: None. ST-T Changes: No significant changes. Conclusion: Unremarkable Lexiscan stress. Myoview images reported separately. Test Summary RECOVERY 03:24 . . 79 . 152/ 74 . . REST 03:55 . . 79 . 146/ 69 . . Stage 1 . . . . . . . Cardiolite injected Stage 1 01:00 . . 80 . . . . Stage 2 01:00 . . 79 . 138/ 61 . . Stage 3 01:00 . . 81 . 140/ 70 . . Stage 4 01:00 . . 75 . 143/ 65 . . Stage 4 01:01 . . 75 . 143/ 65 . Stop exercise at 04:01 RECOVERY 01:00 . . 81 . . . . RECOVERY 02:00 . . 79 . 145/ 73 . . RECOVERY 03:00 . . 81 . 152/ 74 . . RECOVERY 03:24 . . 79 . 152/ 74 . . Electronically signed by : Andrew Pino, 03/24/2021 09:19:14
== END ==
PROVIDERS: PCP Family Medicine; Visit Provider Physician Assistant
DX: I73.9 Peripheral vascular disease, unspecified (principal); M79.604 Pain in right leg; R09.89 Other specified symptoms and signs involving the circulatory and respiratory systems; R20.0 Anesthesia of skin; R20.2 Paresthesia of skin; R68.89 Other general symptoms and signs; R94.31 Abnormal electrocardiogram [ECG] [EKG]
CPT/HCPCS: 78452; 93017; 93306; A9502; J2785

== ENCOUNTER → 2021-04-04 16:16 | Outpatient (CLI) | payer MEDICARE, SELFPAY ==
[2021-04-04 16:46] LABS: Basophils # 0.1 K/mm3 (0-0.2); Basophils % 0.5 % (0.1-2.0); Eosinophils # 0.4 K/mm3 (0.0-0.4); Eosinophils % 3.8 % (0.1-12.0); Hematocrit 33.9 % (42.0-52.0); Hemoglobin 11.6 g/dL (14.1-18.0); Mean Corpuscular HGB Conc 34.3 g/dL (31.8-35.4); Mean Corpuscular Hemoglobin 30.3 pg (27.0-31.2); Mean Corpuscular Volume 88.3 fl (80-94); Mean Platelet Volume 7.9 fl (7.4-10.4); Monocytes # 0.8 K/mm3 (0.1-1.0); Monocytes % 8.1 % (1.7-9.3); Neutrophils # 6.6 K/mm3 (1.8-7.8); Neutrophils % 67.6 % (37.0-80.0); Platelet Count 250 K/mm3 (142-424); Red Blood Count 3.83 M/mm3 (4.60-6.20); White Blood Count 9.8 K/mm3 (4.8-10.8)
[2021-04-04 18:04] LABS: Anion Gap 15.6 mEq/L (5-15); Blood Urea Nitrogen 23 mg/dl (9-20); Calcium 9.3 mg/dl (8.4-10.2); Carbon Dioxide 33 mmol/L (22.0-30.0); Chloride 97 mmol/L (98-107); Estimated Glomerular Filt Rate 14 ml/min (>60); GFR (African American) 18 ML/MIN (>60); Glucose 123 mg/dl (74-100); Potassium 4.6 mmoL/L (3.5-5.1); Sodium 141 mmol/L (136-145)
== END ==
PROVIDERS: Visit Provider Physician Assistant
DX: I73.9 Peripheral vascular disease, unspecified (principal); M79.604 Pain in right leg; R09.89 Other specified symptoms and signs involving the circulatory and respiratory systems; R20.0 Anesthesia of skin; R20.2 Paresthesia of skin; R68.89 Other general symptoms and signs; Z01.812 Encounter for preprocedural laboratory examination; Z11.52 Encounter for screening for COVID-19
CPT/HCPCS: 36415; 80048; 85025; U0003

== ENCOUNTER 2021-04-05 11:45 | Day surgery (SDC) | payer MEDICARE, SELFPAY ==
[2021-04-05] VITALS (17 sets, daily range): BP systolic 104–131; BP diastolic 44–61; PULSE 52–75; RESP 16–18; TEMP 36.9; O2SAT 90–98; BMI 22.1
--- NOTE | 2021-04-05 07:36 | IR_ITS ---
APPROVED REPORT Patient Location: Outpatient Retail Account Manager: ADRIANA Jain RT (R) PROCEDURES Catheter placement in the abdominal aorta Abdominal aortogram Repositioning the catheter in the abdominal aorta Bilateral iliofemoral runoff INDICATION Abnormal TONE, Peripheral artery disease, Bleckley claudication class III Informed consent was obtained prior to the procedure. COMPLICATIONS None Estimated Blood Loss: Less than 10 mls TECHNIQUE 1% lidocaine used to anesthetize the left femoral groin. The right femoral artery was accessed via the Seldinger technique. Using fluoroscopic guidance the pigtail catheter was advanced from the aorta with an abdominal aortic angiogram was taken, from there the catheter was repositioned and bilateral angiography with runoff to the feet was performed. At the end of the procedure the patient was transferred to the postop holding area in stable condition for sheath removal. ANGIOGRAPHIC RESULTS The suprarenal and infrarenal abdominal aorta are widely patent The mesenteric arteries are widely patent The bilateral common internal and external iliac arteries are widely patent The bilateral common femoral arteries are widely patent The bilateral profunda femoris arteries are widely patent The bilateral superficial femoral arteries are widely patent The bilateral popliteal arteries are widely patent in the proximal segment. Distally there are dense calcifications and basically obliteration of all 3 infrageniculate vessels. There are scant collaterals which make it into the bilateral feet however the main vessels are mostly deteriorated from small vessel vasculopathy IMPRESSION Widely patent inline flow into the bilateral knee area with infrageniculate small vessel vasculopathy PLAN 1. Medical management 2. Xarelto 2.5 twice daily plus aspirin 81 mg daily 3. Physical therapy 4. LDL less than 55 Electronically signed by : Andrew Pino, 04/05/2021 14:35:22
== END 2021-04-05 16:32 | disposition home or self-care (01) ==
LOC: CATHLAB 11:49
PROVIDERS: PCP Family Medicine; Visit Provider Internal Medicine
DX: E11.42 Type 2 diabetes mellitus with diabetic polyneuropathy; E03.9 Hypothyroidism, unspecified; Z79.4 Long term (current) use of insulin; E11.22 Type 2 diabetes mellitus with diabetic chronic kidney disease; N18.6 End stage renal disease; Z99.2 Dependence on renal dialysis; I70.213 Atherosclerosis of native arteries of extremities with intermittent claudication, bilateral legs; I12.0 Hypertensive chronic kidney disease with stage 5 chronic kidney disease or end stage renal disease
CPT/HCPCS: 36247; 75625; 75716; 99152; C1725; C1769; J1644; Q9966

== ENCOUNTER 2021-07-28 15:04 | Emergency (ER) | payer MEDICARE, SELFPAY ==
[2021-07-28 15:03] VITALS: BP 199/92; PULSE 63; RESP 21; TEMP 36.6; O2SAT 99; BMI 23.7
--- NOTE | 2021-07-28 15:17 | XR_ITS ---
PROCEDURE: XR HIP LT 2-3V W/PELVIS CLINICAL INDICATION: Fall, left hip injury COMPARISON: No exams were available for comparison FINDINGS: Nondisplaced intertrochanteric fracture is present involving the left femur. Minimal osteoarthritic changes of the hips with vascular calcification noted and postsurgical changes of the lower lumbar spine and lumbosacral junction IMPRESSION: Nondisplaced left intertrochanteric hip fracture Dictated by: Alexander Garza MD 07/28/2021 16:39 Alexander Garza MD in [place] 07/28/2021 16:39
[2021-07-28 15:36] LABS: Coronavirus 19, PCR Not Detected (NotDetected); Influenza A, PCR Not Detected (NotDetected); Influenza B, PCR Not Detected (NotDetected)
[2021-07-28 15:47] LABS: Chloride 100 mmol/L (98-107); Sodium 140 mmol/L (136-145)
[2021-07-28 15:48] LABS: Basophils # 0.1 K/mm3 (0-0.2); Basophils % 1.4 % (0.1-2.0); Eosinophils # 0.4 K/mm3 (0.0-0.4); Eosinophils % 3.9 % (0.1-12.0); Hematocrit 33.7 % (42.0-52.0); Hemoglobin 11.2 g/dL (14.1-18.0); Lymphocytes # 2.1 K/mm3 (0.7-4.5); Lymphocytes % 22.7 % (10-50); Mean Corpuscular HGB Conc 33.1 g/dL (31.8-35.4); Mean Corpuscular Hemoglobin 33.3 pg (27.0-31.2); Mean Corpuscular Volume 100.5 fl (80-94); Mean Platelet Volume 8.3 fl (7.4-10.4); Monocytes # 0.5 K/mm3 (0.1-1.0); Monocytes % 5.8 % (1.7-9.3); Neutrophils # 6.1 K/mm3 (1.8-7.8); Neutrophils % 66.2 % (37.0-80.0); Platelet Count 231 K/mm3 (142-424); Potassium 3.6 mmoL/L (3.5-5.1); Red Blood Count 3.35 M/mm3 (4.60-6.20); Red Cell Distribution Width 13.4 % (11.5-17.5); White Blood Count 9.2 K/mm3 (4.8-10.8)
[2021-07-28 15:50] LABS: Alanine Aminotransferase 21 U/L (12-78); Albumin Level 3.7 g/dl (3.5-5.0); Albumin/Globulin Ratio 1.4 (1.1-1.8); Alkaline Phosphatase 119 U/L (38-126); Anion Gap 13.6 mEq/L (5-15); Aspartate Amino Transferase 38 U/L (17-59); Bilirubin,Total 0.5 mg/dl (0.2-1.3); Blood Urea Nitrogen 15 mg/dl (9-20); Calcium 9.6 mg/dl (8.4-10.2); Carbon Dioxide 30 mmol/L (22.0-30.0); Creatinine Clearance Estimated 14 mL/min (50-200); Estimated Glomerular Filt Rate 12 ml/min (>60); GFR (African American) 14 ML/MIN (>60); Globulin 2.7 g/dL (1.3-3.2); Glucose 149 mg/dl (74-100); Total Protein,Serum 6.4 g/dl (6.3-8.2)
--- NOTE | 2021-07-28 15:58 | PC.NURSE ---
Creat 4.8 repeated and verified with lab. Notified
--- NOTE | 2021-07-28 16:22 | XR_ITS ---
PROCEDURE: XR CHEST PORTABLE CLINICAL HISTORY: fall COMPARISON: CR CXR2V XR chest 2V from 09/23/2018 CR XR CHEST AP from 01/12/2020 CR XR CHEST PORTABLE from 07/06/2020 FINDINGS: The cardiomediastinal silhouette and pulmonary vascularity are within normal limits. There is chronic elevation of the right hemidiaphragm. Minimal right basilar atelectasis. No acute bony findings. IMPRESSION: Elevated right hemidiaphragm with minimal right basilar atelectasis Dictated by: Alexander Garza MD 07/28/2021 16:36 Alexander Garza MD in [place] 07/28/2021 16:36
--- NOTE | 2021-07-28 16:59 | HMH.EDGENADL ---
ED Disposition Clinical Impression: Uncontrolled hypertension, Chronic kidney disease with end stage renal failure on dialysis Closed left hip fracture Qualifiers: Encounter type: initial encounter Qualified Code(s): S72.002A - Fracture of unspecified part of neck of left femur, initial encounter for closed fracture Disposition: Xfer Short-Term Hosp Condition on Discharge: Fair Referrals: Provider,Referral, [Primary Care Provider] - - Critical Care Critical Care Time: No Attestation: On 07/28/21, the high probability of a clinically significant, sudden or life threatening deterioration of the following system(s) required my full and direct attention, intervention and personal management. The time I documented below is in addition to time spent performing reported procedures but includes the following listed in this critical care notation. Medical Decision Making - Tunde Inquiry Pt receiving controlled substance: Yes Tunde was queried for this patient: Yes Risks and benefits of using a controlled substance: were not discussed with pt by me Vital Signs: 07/28/21 15:03 Temperature 97.9 F Temperature Source Oral Pulse Rate [Right Radial] 63 Respiratory Rate 21 Blood Pressure [Right Arm] 199/92 H Blood Pressure Mean [Right Arm] 127 Blood Pressure Source [Right Arm] Automatic Cuff Blood Pressure Position [Right Arm] Sitting 02 Sat by Pulse Oximetry 99 Oxygen Delivery Method Room Air - Lab Data Lab Results 07/28/21 15:30: WBC 9.2, RBC 3.35 L, Hgb 11.2 L, Hct 33.7 L, MCV 100.5 H, MCH 33.3 H, MCHC 33.1, RDW 13.4, Plt Count 231, MPV 8.3, Neut % (Auto) 66.2, Lymph % (Auto) 22.7, [place] % (Auto) 5.8, Eos % (Auto) 3.9, Baso % (Auto) 1.4, Neut # (Auto) 6.1, Lymph # (Auto) 2.1, [place] # (Auto) 0.5, Eos # (Auto) 0.4, Baso # (Auto) 0.1 07/28/21 15:30: Sodium 140, Potassium 3.6, Chloride 100, Carbon Dioxide 30, Anion Gap 13.6, BUN 15, Creatinine 4.80 H, Estimated Creat Clear 14, Estimated GFR 12 L*, Est GFR ( Amer) 14 L*, Glucose 149 H, Calcium 9.6, Total Bilirubin 0.5, AST 38, ALT 21, Alkaline Phosphatase 119, Total Protein 6.4, Albumin 3.7, Globulin 2.7, Albumin/Globulin Ratio 1.4 07/28/21 15:30: SARS-CoV-2 (PCR) Not detected, Influenza A Untype (PCR) Not detected, Influenza Type B (PCR) Not detected Result diagrams: 07/28/21 15:30 07/28/21 15:30 Orders (Tests/Meds): ED MEDICATIONS Discontinued Medications Generic Name Dose Route Start Last Admin Trade Name Clare PRN Reason Stop Dose Admin Labetalol HCl 10 mg 07/28/21 17:49 Labetalol 5mg/Ml 20ml Mdv IV 07/28/21 17:50 ONCE ONE Morphine Sulfate 4 mg 07/28/21 17:11 07/28/21 17:15 Morphine 4mg/Ml Syringe IV 07/28/21 17:12 4 mg ONCE ONE Administration Ondansetron HCl 4 mg 07/28/21 17:11 07/28/21 17:15 Ondansetron 4mg/2ml Vial IV 07/28/21 17:12 4 mg ONCE ONE Administration - Radiology Data #1 Image(s): Chest, Hip Image Reviewed: Yes I have reviewed radiologist's interpretation PROCEDURE: XR CHEST PORTABLE CLINICAL HISTORY: fall COMPARISON: CR CXR2V XR chest 2V from 09/23/2018 CR XR CHEST AP from 01/12/2020 CR XR CHEST PORTABLE from 07/06/2020 FINDINGS: The cardiomediastinal silhouette and pulmonary vascularity are within normal limits. There is chronic elevation of the right hemidiaphragm. Minimal right basilar atelectasis. No acute bony findings. IMPRESSION: Elevated right hemidiaphragm with minimal right basilar atelectasis Dictated by: Alexander Garza MD 07/28/2021 16:36 Alexander Garza MD in [place] 07/28/2021 16:36 PROCEDURE: XR HIP LT 2-3V W/PELVIS CLINICAL INDICATION: Fall, left hip injury COMPARISON: No exams were available for comparison FINDINGS: Nondisplaced intertrochanteric fracture is present involving the left femur. Minimal osteoarthritic changes of the hips with vascular calcification noted and postsurgical changes of the lower lumbar
--- NOTE | 2021-07-28 17:34 | PC.NURSE ---
call to [facility] for transfer
--- NOTE | 2021-07-28 17:45 | PC.NURSE ---
Dr. Mcbride accepted pt to [facility]
--- NOTE | 2021-07-28 18:06 | ECG_ITS ---
APPROVED REPORT Exam: Resting ECG HR:84 bpm ECG Measurements Heart Rate 84 AXES CA 224 P 61 QRSd 106 QRS 67 QT 396 T 71 QTc 467 Conclusion Sinus rhythm with 1st degree AV block Nonspecific ST abnormality Abnormal ECG Electronically signed by : Mario Rollins MD 07/29/2021 13:51:17
[2021-07-28 18:11] VITALS: BP 202/98
[2021-07-28 18:31] VITALS: BP 188/90
[2021-07-28 18:47] VITALS: BP 188/90; PULSE 85; RESP 16; TEMP 36.8; O2SAT 97
== END 2021-07-28 19:15 | disposition short-term general hospital (02) ==
PROVIDERS: Emergency Provider Emergency Medicine
DX: S72.002A Fracture of unspecified part of neck of left femur, initial encounter for closed fracture (principal); W01.0XXA Fall on same level from slipping, tripping and stumbling without subsequent striking against object, initial encounter; Y92.015 Private garage of single-family (private) house as the place of occurrence of the external cause; I10 Essential (primary) hypertension; N18.6 End stage renal disease; Z99.2 Dependence on renal dialysis; E11.9 Type 2 diabetes mellitus without complications; E78.5 Hyperlipidemia, unspecified; Z20.822 Contact with and (suspected) exposure to COVID-19
CPT/HCPCS: 71045; 73502; 80053; 85025; 93005; 96374; 96375; 96376; 99284; C9803; J2405; U0003; U0005

== ENCOUNTER 2022-03-16 11:00 | Outpatient (RCR) | payer MEDICARE, SELFPAY ==
--- NOTE | 2021-12-28 14:11 | HMH.PTOPEV ---
PT Outpatient Evaluation Rehab PT Outpatient Evaluation Start: 12/28/21 13:01 Freq: Status: Active Protocol: Document 12/28/21 13:57 TERESA (Rec: 12/28/21 14:11 PHORJOE [id number]) Electronically Signed By Wiliam June, PT 12/28/21 13:57 Outpatient Therapy Subjective History Subjective History Pt is 81 yowm who presents with c/o increased weakness, difficulty ambulating, dizziness, fatigue, and R shld pain. Pt has been undergoing dialysis for 6 mos to 1 yr due to CKD and this has significantly increased his fatigue overall. He also suffered a fall ~ 5 mos ago with resulting L hip fx and ORIF. He reports slow progress with his rehab after hip surgery and although he is walking better, he remains fatigued. He also reports, I' ve got a torn rotary cup in my right shoulder and they won't do surgery on it. It's gotten a lot worse too and I can't hardly lift anything with that arm. He has not had any falls since the previous one 5 mos ag, but remains somewhat off balance. He has PMH of DM- II, CKD requiring dialysis 3 x /wk, and HTN. Chief Complaint Weakness Symptoms Relieved By Rest/Positioning Symptoms Aggravated By Physical Activity,Walking Prior Functional Limitations None Current Functional Limitations Reaching,Lifting,Housework, Driving,Standing,Recreation Activity,Walking,Stairs, Bending/Stooping Symptom Description Activity Dependent Level of pain today (0-10) 0 Hip/Knee Eval Gait Observation General Gait Pattern Observation Shuffling Step,Decrease Stride Lngth (R),Decrease Stride Lngth (L) Palpation Tenderness left Hip Palpation Findings Tenderness MMT Hip Flexion Strength Grade 3 Fair Hip Abduction Strength Grade 3 Fair Hip Adduction Strength Grade 4 Good Knee Extension Strength Grade 5 Normal Knee Flexion Strength Grade 5 Normal Dynamic Gait Index Test Protocol Gait Level Surface
--- NOTE | 2022-01-24 15:03 | HMH.RHREAS ---
Rehab Reassessment Rehab OP Re-assessment Start: 01/24/22 14:53 Freq: Status: Active Protocol: Document 01/24/22 14:55 TERESA (Rec: 01/24/22 15:00 TERESA [id number]) Electronically Signed By Wiliam June, PT 01/24/22 14:55 Rehab Re-assessment Subjective Subjective Pt reports, I think I'm doing better, but I still can't use that cane very well. Objective Objective Notes MMT L HIP: FLex= 4/5, ABD= 4/5 , ADD= 4/5, EXT= 4/5. Dynamic Gait Index (DGI): . Assessment Progress Assessment Progressing as Expected Assessment Notes Pt has show significant change with ambulation ability. He has improved 6 pts on DGI which is quite a significant change. He also has improved L LE strength quite a bit since initial evaluation. He remains fatigued with exercise though. Patient goals met ST,2,3,4,5,6 LT Goals Not Met LT,2,3,4,6,7 Revised Goals none Plan Plan Continue per initial POC. Frequency of Therapy 2 x/wk Duration of therapy 8 wks Time and Billing Re-Eval Time 16 Re-Eval Billing Units 1 PHYSICIAN CERTIFICATION: I certify the specified therapy services for Ronny Peña are required, authorized, and reviewed every 30 days.
--- NOTE | 2022-02-21 11:56 | HMH.RHREAS ---
Rehab Reassessment Rehab OP Re-assessment Start: 01/24/22 14:53 Freq: Status: Active Protocol: Document 02/21/22 11:52 TERESA (Rec: 02/21/22 11:55 TERESA [id number]) Electronically Signed By Wiliam June, PT 02/21/22 11:52 Rehab Re-assessment Subjective Subjective Pt reports, I have never hurt after dialysis, but yesterday I hurt all over when I was done and It really took a lot out of me. Objective Objective Notes MMT L HIP: FLex= 4+/5, ABD= 4/ 5, ADD= 5/5, EXT= 4+/5. R HIP FLEX 4+/5. Dynamic Gait Index (DGI): . Assessment Progress Assessment Progressing as Expected Assessment Notes Pt has shown steady improvement in strength overall, but continues to need more strength in the L LE throughout. His endurance to activity is significantly hampered by his dialysis schedule and his general weakness afterwards. Continues to need further gait pattern improvements to reduce dependence on AD> Patient goals met ST,2,3,4,5,6 LT Goals Not Met LT,2,3,4,6,7 Revised Goals none Plan Plan Continue per initial POC. Frequency of Therapy 2 x/wk Duration of therapy 4 wks Time and Billing Re-Eval Time 14 Re-Eval Billing Units 1 PHYSICIAN CERTIFICATION: I certify the specified therapy services for Ronny Peña are required, authorized, and reviewed every 30 days.
== END 2022-03-16 11:05 | disposition home or self-care (01) ==
LOC: PT 11:00
PROVIDERS: PCP Nurse Practitioner Family; Visit Provider Nurse Practitioner Family
DX: R26.89 Other abnormalities of gait and mobility (principal); R29.6 Repeated falls; M62.81 Muscle weakness (generalized)
CPT/HCPCS: 97110; 97112; 97116; 97163; 97164

== ENCOUNTER → 2022-03-22 12:29 | Outpatient (CLI) | payer MEDICARE, SELFPAY ==
--- NOTE | 2022-03-22 12:35 | XR_ITS ---
FINAL REPORT CLINICAL HISTORY: shoulder pain FINDINGS: RIGHT SHOULDER Three views were obtained. There is no acute fracture or dislocation. There is mild AC joint degenerative change. There is superior subluxation of the humerus. No soft tissue abnormality is identified. IMPRESSION: Degenerative changes as above. Reviewed, Interpreted and Dictated by Maximilian David III, MD Transcribed by Salud Altamirano Authenticated and [facility]
== END ==
PROVIDERS: PCP Family Medicine; Visit Provider Orthopaedic Surgery
DX: M25.511 Pain in right shoulder (principal)
CPT/HCPCS: 73030

== ENCOUNTER 2022-05-09 13:00 | Outpatient (RCR) | payer MEDICARE, SELFPAY ==
--- NOTE | 2022-03-28 15:36 | HMH.OTOPEV ---
OT Inpatient Evaluation Rehab OT Outpatient Eval Start: 03/28/22 14:52 Freq: Status: Active Protocol: Document 03/28/22 14:52 TRCAYALAN (Rec: 03/28/22 15:36 LIDIA [id number]) Electronically Signed By Chloe Robbins OT 03/28/22 14:52 Outpatient Therapy Subjective History Subjective History 82 year old male referred to skilled OP OT services for R shoulder pain. 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 ~2 years later he went to [facility] of the pain became unbearable and was told he had a torn rotator cuff, but nothing could be done bc he waited too long after the injury. He is on dialysis for end-stage renal disease and has a hx of type 2 dm. He ambulates with walker assist. Patient seen MD whitmore with recieved kenalog and lidocaine on 03/22/22 with minimal relief . on 03/22/22, Patient recieved an x-ray with no fx/ dislocation. Only Mild AC joint degenerative. Patient has no interest in having elective surgery at this time. f/u with ortho in 3 months. Chief Complaint Pain,Weakness Symptom Type Ache Symptoms Relieved By OTC Meds Symptoms Aggravated By Physical Activity Prior Functional Limitations None Current Functional Limitations Reaching,Lifting,Recreation Activity Symptom Description Constant and Continuous Level of pain today (0-10) 6 Pain scale - at its best (0-10) 6 Pain scale - at its worst (0-10) 10 Shoulder/Elbow Eval Shoulder Objective Measurements Shoulder ROM Right Shoulder Abduction Active Range of 60 Motion (degrees) Shoulder Flexion Active Range of Motion 70 (degrees) Query Text: Shoulder External Rotation Active Range 20 of Motion (degrees) Shoulder Internal Rotation Active Range 40 of Motion (degrees) pain with active ROM shoulder exam right standard Shoulder MMT Shoulder Abduction Strength Grade 2+ Poor+ Shoulder Extension Strength Grade 2+ Poor+ Shoulder
== END 2022-05-09 13:05 | disposition home or self-care (01) ==
LOC: OT 13:00
PROVIDERS: PCP Family Medicine; Visit Provider Orthopaedic Surgery
DX: M75.101 Unspecified rotator cuff tear or rupture of right shoulder, not specified as traumatic (principal)
CPT/HCPCS: 97010; 97014; 97035; 97110; 97140; 97164; 97165; 97530; G0283

== ENCOUNTER → 2022-05-19 13:06 | Outpatient (CLI) | payer MEDICARE, SELFPAY ==
--- NOTE | 2022-05-19 13:13 | XR_ITS ---
FINAL REPORT CLINICAL HISTORY: right shoulder pain COMPARISON: March 22, 2022 FINDINGS: RIGHT SHOULDER: 3 views of the right shoulder were obtained. There is no acute fracture or dislocation. There are mild degenerative changes of the acromioclavicular and the glenohumeral joints. There is superior subluxation of the humerus on the internal rotation view. There is no soft tissue abnormality. IMPRESSION: Superior subluxation of the humerus on the internal rotation view. Rotator cuff tear cannot be excluded. If indicated, MRI shoulder may be helpful. Mild degenerative change. Reviewed, Interpreted and Dictated by Maximilian David III, MD Transcribed by Tor Farmer Authenticated and . [facility]
== END ==
PROVIDERS: PCP Family Medicine; Visit Provider Orthopaedic Surgery
DX: M25.511 Pain in right shoulder (principal)
CPT/HCPCS: 73030

== ENCOUNTER 2022-08-31 18:20 | Emergency (ER) | payer MEDICARE, SELFPAY ==
--- NOTE | 2022-08-31 19:45 | PC.NURSE ---
pt visualized in lobby with family member.
--- NOTE | 2022-08-31 20:22 | ECG_ITS ---
APPROVED REPORT Exam: Resting ECG HR:91 bpm ECG Measurements Heart Rate 91 AXES HI 210 P 265 QRSd 100 QRS 71 QT 384 T 67 QTc 433 Conclusion SINUS RHYTHM WITH FIRST DEGREE AV BLOCK NONSPECIFIC ST & T-WAVE ABNORMALITY ABNORMAL ECG UNCONFIRMED REPORT Electronically signed by : Mario Rollins MD 09/01/2022 16:44:50
[2022-08-31 20:24] VITALS: BMI 22.8
--- NOTE | 2022-08-31 20:25 | XR_ITS ---
PROCEDURE INFORMATION: Exam: XR Chest Exam date and time: 08/31/2022 8:43 PM Age: 82 years old Clinical indication: Other: Gen weakness TECHNIQUE: Imaging protocol: Radiologic exam of the chest. Views: 1 view. COMPARISON: CR XR CHEST PORTABLE 07/28/2021 4:29 PM FINDINGS: Lungs: Low lung volumes, limiting evaluation of lung bases. No definite acute airspace consolidation. Pleural spaces: No large pleural effusion. No pneumothorax. Heart/Mediastinum: Cardiomediastinal silhouette is unchanged. Bones/joints: No evidence of acute osseous abnormality. IMPRESSION: No evidence of acute cardiopulmonary process, noting low lung volumes limits evaluation of the lung bases.
[2022-08-31 20:26] VITALS: BP 165/95; PULSE 92; RESP 16; TEMP 36.7; O2SAT 95; BMI 22.8
[2022-08-31 20:33] LABS: Influenza A, PCR Not Detected (NotDetected); Influenza B, PCR Not Detected (NotDetected)
[2022-08-31 20:44] LABS: Basophils % 0.2 % (0.1-2.0); Eosinophils % 0.3 % (0.1-12.0); Hematocrit 32.7 % (42.0-52.0); Hemoglobin 10.6 g/dL (14.1-18.0); Lymphocytes # 0.8 K/mm3 (0.7-4.5); Lymphocytes % 6.4 % (10-50); Mean Corpuscular HGB Conc 32.5 g/dL (31.8-35.4); Mean Corpuscular Hemoglobin 31.6 pg (27.0-31.2); Mean Platelet Volume 8.5 fl (7.4-10.4); Monocytes # 0.4 K/mm3 (0.1-1.0); Monocytes % 3.2 % (1.7-9.3); Neutrophils # 11.1 K/mm3 (1.8-7.8); Platelet Count 214 K/mm3 (142-424); Red Blood Count 3.37 M/mm3 (4.60-6.20); Red Cell Distribution Width 13.7 % (11.5-17.5); White Blood Count 12.3 K/mm3 (4.8-10.8)
[2022-08-31 20:46] LABS: Chloride 99 mmol/L (98-107); Potassium 3.6 mmoL/L (3.5-5.1); Sodium 138 mmol/L (136-145)
[2022-08-31 20:47] LABS: MANUAL DIFFERENTIAL MANUAL DIFFERENTIAL (MANUAL DIFF)
[2022-08-31 20:48] LABS: Alanine Aminotransferase 23 U/L (12-78); Aspartate Amino Transferase 34 U/L (17-59); Bilirubin,Total 0.9 mg/dl (0.2-1.3); Blood Urea Nitrogen 19 mg/dl (9-20); Estimated Glomerular Filt Rate 12 ml/min (>60); GFR (African American) 15 ML/MIN (>60)
[2022-08-31 20:49] LABS: Albumin/Globulin Ratio 1.5 (1.1-1.8); Alkaline Phosphatase 186 U/L (38-126); Anion Gap 13.6 mEq/L (5-15); Calcium 10.3 mg/dl (8.4-10.2); Carbon Dioxide 29 mmol/L (22.0-30.0); Globulin 2.7 g/dL (1.3-3.2); Glucose 163 mg/dl (74-100); Phosphorous 3.3 mg/dl (2.5-4.5); Total Protein,Serum 6.7 g/dl (6.3-8.2)
[2022-08-31 21:01] LABS: Creatinine Clearance Estimated 13 mL/min (50-200)
[2022-08-31 21:03] LABS: Troponin I 0.09 ng/ml (0.00-0.034)
[2022-08-31 21:26] LABS: Coronavirus 19, PCR Detected (NotDetected)
--- NOTE | 2022-08-31 21:36 | HMH.EDWEAK ---
Discharge Plan Disposition Patient Disposition: Home, Self-Care Chief Complaint: Weakness Prescriptions Prescriptions: No Action montelukast 10 mg tablet 10 mg PO HS finasteride 5 mg tablet 5 mg PO DAILY terazosin 10 mg capsule 10 mg PO DAILY sevelamer carbonate 800 mg tablet 800 mg PO DAILY levothyroxine 75 mcg tablet 50 mcg PO DAILY carvedilol 25 mg tablet See Rx Instructions .ROUTE .COMPLEX Rx Instructions: 25 mg orally ON NON-DIALYSIS DAYS // hydralazine 25 mg tablet See Rx Instructions .ROUTE .COMPLEX Rx Instructions: 25 mg orally 25 MG X2 TABLETS ON //SUN 25 X1 TABLET // ursodiol 300 mg capsule 300 mg PO DAILY Qty: 60 calcitriol 0.25 mcg capsule 0.25 mcg PO DAILY Label Comments: TAKE 1 CAPSULE BY MOUTH ON Sunday AND SUNDAY furosemide 40 mg tablet 40 mg PO DAILY Label Comments: TAKE 1 TO 2 TABLETS BY MOUTH DAILY FOR SWELLING paroxetine HCl 20 mg tablet 20 mg PO DAILY amlodipine 5 mg tablet 5 mg PO MONTHLY cyanocobalamin (vitamin B-12) 1,000 MCG tablet 1,000 mcg PO DAILY ascorbic acid-ascorbate sodium 500 mg wafer 1,000 mg PO DAILY cholecalciferol (vitamin D3) 25 mcg (1,000 unit) tablet 5,000 unit PO DAILY Referrals Follow up/Referrals: Thang Hou MD [Primary Care Provider] - See instructions Clinical Impressions Clinical Impression: COVID-19, ESRD (end stage renal disease) on dialysis Instructions Patient Instructions: DI for COVID-19 (Suspected or Confirmed ) Discharge ED Provider: Avinash Garcia Weakness HPI General Chief complaint: Weakness Stated complaint: week, congested, dizzy Time Seen by Provider: 08/31/22 20:25 Mode of Arrival: Ambulatory Source of Information: Patient and Medical Record Limitations: No Limitations Description of Symptoms (Recalled from ER Triage Doc. by RN): PT Family reports that the pt is due for dialysis tomorrow and has had dialysis twice this week. the explained that he has progressively been getting more weak and the son of the pt stated that he has also noticed that there is congestion today. the pt states that he is just extra weak today History of Present Illness HPI Narrative: this pt has increased waekness over the last few days with hx of esrd on dialysis - no fever or fall and no chest pain Complaint: generalized weakness Onset (ago): day(s) Duration: intermittent Location: generalized Migration: none Severity: moderate Associated symptoms: denies other symptoms Related Data Home Medications Medication Instructions Recorded Confirmed finasteride 5 mg tablet 5 mg PO DAILY prostate 10/16/17 08/31/22 montelukast 10 mg tablet 10 mg PO HS allergies 10/16/17 08/31/22 cyanocobalamin (vitamin B-12) 1,000 mcg PO DAILY Supplement 11/26/18 08/31/22 1,000 mcg tablet ascorbic acid-ascorbate sodium 1,000 mg PO DAILY Supplement 09/24/19 08/31/22 (vitamin C) 500 mg oral wafer calcitriol 0.25 mcg capsule 0.25 mcg PO DAILY hypocalcemia 09/24/19 08/31/22 ursodiol 300 mg capsule 300 mg PO DAILY urine #60 caps 09/24/19 08/31/22 cholecalciferol (vitamin D3) 25 5,000 unit PO DAILY Supplement 11/23/20 08/31/22 mcg (1,000 unit) tablet sevelamer carbonate 800 mg tablet 800 mg PO DAILY hypocalcemia 02/22/21 08/31/22 furosemide 40 mg tablet 40 mg PO DAILY blood pressure 04/19/21 08/31/22 terazosin 10 mg capsule 10 mg PO DAILY High blood pressure 07/19/21 08/31/22 amlodipine 5 mg tablet 5 mg PO MONTHLY HTN 11/15/21 08/31/22 paroxetine HCl 20 mg tablet 20 mg PO DAILY Depression 11/15/21 08/31/22 levothyroxine 75 mcg tablet 50 mcg PO DAILY THYROID 05/19/22 08/31/22 carvedilol 25 mg tablet See Rx Instructions .Route 08/29/22 08/31/22 .COMPLEX DAILY hydralazine 25 mg tablet See Rx Instructions .Route 08/29/22 08/31/22 .COMPLEX HTN Allergies Allergy/AdvReac Type Severity Reaction
[2022-08-31 21:57] LABS: Lymphocytes % 6 % (10-50); Monocytes % 2 % (2-9); Neutrophils % 92 % (42-76); Total Cells Counted 100
[2022-08-31 21:58] LABS: Platelet Estimate Normal; RBC Morphology Normal
[2022-08-31 22:22] LABS: T4 (Thyroxine) 13.9 ug/dl (5.53-11.0)
[2022-08-31 22:36] LABS: Thyroid Stimulating Hormone 0.98 uIU/mL (0.465-4.68)
[2022-08-31 23:26] VITALS: BP 162/82; PULSE 93; RESP 16; TEMP 36.7; O2SAT 95
== END 2022-08-31 23:30 | disposition home or self-care (01) ==
PROVIDERS: Emergency Provider Emergency Medicine; PCP Family Medicine
DX: U07.1 COVID-19 (principal); R42 Dizziness and giddiness; R53.1 Weakness; R00.0 Tachycardia, unspecified; R09.89 Other specified symptoms and signs involving the circulatory and respiratory systems; R94.31 Abnormal electrocardiogram [ECG] [EKG]; I12.9 Hypertensive chronic kidney disease with stage 1 through stage 4 chronic kidney disease, or unspecified chronic kidney disease; N18.6 End stage renal disease; I73.9 Peripheral vascular disease, unspecified; E78.5 Hyperlipidemia, unspecified; E11.22 Type 2 diabetes mellitus with diabetic chronic kidney disease; Z79.899 Other long term (current) drug therapy; Z88.0 Allergy status to penicillin; Z88.2 Allergy status to sulfonamides; Z88.8 Allergy status to other drugs, medicaments and biological substances; Z83.3 Family history of diabetes mellitus; Z87.891 Personal history of nicotine dependence
CPT/HCPCS: 71045; 80053; 83735; 84100; 84436; 84443; 84484; 85007; 85025; 93005; 96360; 99284; C9803; U0003; U0005

== ENCOUNTER → 2022-09-01 08:05 | Outpatient (CLI) | payer MEDICARE, SELFPAY ==
[2022-09-01 08:17] LABS: Microscopic, Urine URINE MICROSCOPIC (MICROSCOPIC)
[2022-09-01 08:43] LABS: Appearance,Urine SL CLOUDY (Clear); Bilirubin,Urine Negative (Negative); Blood, Urine TRACE-I (Negative); Color,Urine YELLOW (Yellow); Glucose,Urine (UA) Negative (Negative); Ketones,Urine TRACE (Negative); Leukocyte Esterase,Urine 2+ (Negative); Nitrate,Urine Negative (Negative); PH,Urine 8.5 (5.0-8.5); Protein,Urine 2+ (Negative); Specific Gravity, Urine 1.015 (1.005-1.030); Urobilinogen,Urine 0.2 EU/dl (0.2)
[2022-09-01 08:58] LABS: Bacteria,Urine Trace /lpf; Calcium Oxalate Crystals,Urine 2+ /lpf; RBC,Urine Occasional #/hpf (0-3); Squamous Epithelial Cell,Urine Occasional #/hpf (0-5)
== END ==
PROVIDERS: PCP Family Medicine; Visit Provider Emergency Medicine
DX: R53.1 Weakness (principal); N18.6 End stage renal disease
CPT/HCPCS: 81001; 87086; 87088; 87186

== ENCOUNTER → 2022-09-14 08:15 | Outpatient (CLI) | payer MEDICARE, SELFPAY ==
[2022-09-14 08:33] LABS: Microscopic, Urine URINE MICROSCOPIC (MICROSCOPIC)
[2022-09-14 09:01] LABS: Basophils # 0.1 K/mm3 (0-0.2); Basophils % 0.5 % (0.1-2.0); Eosinophils # 0.3 K/mm3 (0.0-0.4); Eosinophils % 2.9 % (0.1-12.0); Hematocrit 30.5 % (42.0-52.0); Lymphocytes # 1.7 K/mm3 (0.7-4.5); Lymphocytes % 17.7 % (10-50); Mean Corpuscular HGB Conc 32.8 g/dL (31.8-35.4); Mean Corpuscular Hemoglobin 32.6 pg (27.0-31.2); Mean Corpuscular Volume 99.3 fl (80-94); Mean Platelet Volume 9.2 fl (7.4-10.4); Monocytes # 0.6 K/mm3 (0.1-1.0); Neutrophils # 6.9 K/mm3 (1.8-7.8); Neutrophils % 72.9 % (37.0-80.0); Platelet Count 195 K/mm3 (142-424); Red Blood Count 3.07 M/mm3 (4.60-6.20); Red Cell Distribution Width 14.1 % (11.5-17.5); White Blood Count 9.5 K/mm3 (4.8-10.8)
[2022-09-14 10:03] LABS: Alanine Aminotransferase 19 U/L (12-78); Albumin Level 3.4 g/dl (3.5-5.0); Albumin/Globulin Ratio 1.4 (1.1-1.8); Alkaline Phosphatase 140 U/L (38-126); Aspartate Amino Transferase 28 U/L (17-59); Bilirubin,Total 0.8 mg/dl (0.2-1.3); Blood Urea Nitrogen 16 mg/dl (9-20); Calcium 8.5 mg/dl (8.4-10.2); Carbon Dioxide 32 mmol/L (22.0-30.0); Chloride 102 mmol/L (98-107); Estimated Glomerular Filt Rate 17 ml/min (>60); GFR (African American) 20 ML/MIN (>60); Globulin 2.5 g/dL (1.3-3.2); Glucose 152 mg/dl (74-100); Sodium 141 mmol/L (136-145); Total Protein,Serum 5.9 g/dl (6.3-8.2)
[2022-09-14 10:20] LABS: Free T4 (Free Thyroxine) 1.69 ng/dl (0.78-2.19)
[2022-09-14 10:24] LABS: Appearance,Urine SL CLOUDY (Clear); Bilirubin,Urine Negative (Negative); Blood, Urine Negative (Negative); Color,Urine DK YELLOW (Yellow); Glucose,Urine (UA) Negative (Negative); Ketones,Urine Negative (Negative); Leukocyte Esterase,Urine Negative (Negative); Nitrate,Urine Negative (Negative); PH,Urine 8.5 (5.0-8.5); Protein,Urine 3+ (Negative); Specific Gravity, Urine 1.015 (1.005-1.030); Urobilinogen,Urine 0.2 EU/dl (0.2)
[2022-09-14 10:34] LABS: Thyroid Stimulating Hormone 2.84 uIU/mL (0.465-4.68)
[2022-09-14 11:01] LABS: Bacteria,Urine Trace /lpf; Hyaline Casts,Urine Occasional #/lpf (0); Squamous Epithelial Cell,Urine Occasional #/hpf (0-5)
[2022-09-14 11:04] LABS: Anion Gap 10.2 mEq/L (5-15); Potassium 3.2 mmoL/L (3.5-5.1)
== END ==
PROVIDERS: PCP Nurse Practitioner Family; Visit Provider Family Medicine
DX: R63.0 Anorexia (principal); R53.83 Other fatigue
CPT/HCPCS: 36415; 80053; 81001; 84439; 84443; 85025

== ENCOUNTER → 2022-10-13 14:06 | Outpatient (CLI) | payer MEDICARE, SELFPAY ==
--- NOTE | 2022-10-13 14:10 | CA_ITS ---
FINAL REPORT TECHNIQUE: Compression puri scale and Doppler evaluation CLINICAL HISTORY: LLE EDEMA/PAIN,DM FINDINGS: Femoral and popliteal veins show normal compressibility and flow. Visualized portion of the calf veins are patent by Doppler exam. IMPRESSION: No evidence of left lower extremity deep venous thrombosis Reviewed, Interpreted and Dictated by Fran Vega MD Transcribed by Delmy Uribe Authenticated and [facility]
== END ==
PROVIDERS: PCP Nurse Practitioner Family; Visit Provider Nurse Practitioner Family
DX: M79.605 Pain in left leg (principal)
CPT/HCPCS: 93971

== ENCOUNTER 2022-10-16 19:37 | Emergency (ER) | payer MEDICARE, SELFPAY ==
[2022-10-16 19:37] VITALS: BP 146/73; PULSE 97; RESP 16; TEMP 37.1; O2SAT 92; BMI 22.0
--- NOTE | 2022-10-16 19:43 | ECG_ITS ---
APPROVED REPORT Exam: Resting ECG HR:86 bpm ECG Measurements Heart Rate 86 AXES QRSd 97 QRS 88 QT 383 T 218 QTc 426 Conclusion ATRIAL FIBRILLATION Previously noted ST/TW changes ABNORMAL ECG UNCONFIRMED REPORT Abnormal Electrocardiogram Electronically signed by : Mario Rollins MD 10/17/2022 19:54:48
--- NOTE | 2022-10-16 19:51 | XR_ITS ---
PROCEDURE INFORMATION: Exam: XR Chest Exam date and time: 10/16/2022 8:15 PM Age: 82 years old Clinical indication: Injury or trauma; Fall; Blunt trauma (contusions or hematomas) TECHNIQUE: Imaging protocol: Radiologic exam of the chest. Views: 1 view. COMPARISON: CR XR CHEST PORTABLE 08/31/2022 8:43 PM FINDINGS: Lungs: Unremarkable. No consolidation. Pleural spaces: Unremarkable. No pleural effusion. No pneumothorax. Heart/Mediastinum: Unremarkable. No cardiomegaly. Diaphragm: Persistent eventration of the right hemidiaphragm. Subtle cortical regularity lateral aspect left 6th and possibly 7th ribs. Fractures in this region could not be excluded. Bones/joints: See Diaphragm finding. IMPRESSION: Subtle cortical regularity lateral aspect left 6 and possibly 7th ribs. Fractures in this region could not be excluded.
--- NOTE | 2022-10-16 19:51 | XR_ITS ---
PROCEDURE INFORMATION: Exam: XR Pelvis Exam date and time: 10/16/2022 8:15 PM Age: 82 years old Clinical indication: Injury or trauma; Fall; Blunt trauma (contusions or hematomas); Bilateral; Groin TECHNIQUE: Imaging protocol: Radiologic exam of the pelvis. Views: 1 or 2 view. COMPARISON: CR XR HIP LT 2-3V W/PELVIS 07/28/2021 4:14 PM FINDINGS: Bones/joints: Postoperative changes consistent with posterior spinal fusion. Incomplete visualization of ORIF left proximal femur. Findings new. Osteopenia. Subtle cortical irregularity involving the inferior pubic ramus. A fracture could not be entirely excluded. Soft tissues: Unremarkable. IMPRESSION: Subtle cortical irregularity involving the inferior left pubic ramus. A fracture could not be entirely excluded.
--- NOTE | 2022-10-16 19:51 | CT_ITS ---
PROCEDURE INFORMATION: Exam: CT Head Without Contrast Exam date and time: 10/16/2022 8:12 PM Age: 82 years old Clinical indication: Injury or trauma; Fall; Blunt trauma (contusions or hematomas) TECHNIQUE: Imaging protocol: Computed tomography of the head without contrast. Radiation optimization: All CT scans at this facility use at least one of these dose optimization techniques: automated exposure control; mA and/or kV adjustment per patient size (includes targeted exams where dose is matched to clinical indication); or iterative reconstruction. Other protocol: This patient has received 2 known CTs and 0 known cardiac nuclear medicine studies in the 12 months prior to the current study. COMPARISON: MR HEAD/BRAIN WO CON 10/20/2019 9:43 AM FINDINGS: Brain: Basal ganglia hypodensities compatible with lacunar infarctions which are age indeterminate but likely chronic. White matter hypodensity which is nonspecific but compatible with small vessel occlusive change. Global atrophy. No mass. No hemorrhage. Cerebral ventricles: No ventriculomegaly. Paranasal sinuses: No fluid levels. Mastoid air cells: Trace fluid within the left mastoid air cells which appears be chronic. Bones/joints: No acute fracture. Soft tissues: No significant soft tissue abnormality. IMPRESSION: 1. Chronic changes to the brain. 2. Stable left mastoid effusion.
--- NOTE | 2022-10-16 19:51 | CT_ITS ---
PROCEDURE INFORMATION: Exam: CT Cervical Spine Without Contrast Exam date and time: 10/16/2022 8:15 PM Age: 82 years old Clinical indication: Injury or trauma; Fall; Blunt trauma TECHNIQUE: Imaging protocol: Computed tomography of the cervical spine without contrast. Radiation optimization: All CT scans at this facility use at least one of these dose optimization techniques: automated exposure control; mA and/or kV adjustment per patient size (includes targeted exams where dose is matched to clinical indication); or iterative reconstruction. Other protocol: This patient has received [address] and 0 known cardiac nuclear medicine studies in the 12 months prior to the current study. COMPARISON: CR [id number] XR cervical spine 2V 05/27/2018 1:58 PM FINDINGS: Bones/joints: Extensive multilevel degenerative changes of the spine. No fracture. Lungs: Lung apices are normal. Pleural spaces: Small left and moderate right pleural effusions. Vasculature: Calcified atherosclerosis. No aneurysm. Soft tissues: No soft tissue swelling. IMPRESSION: 1. Extensive multilevel degenerative changes of the spine. 2. Small left and moderate right pleural effusions.
--- NOTE | 2022-10-16 20:01 | PC.NURSE ---
patient gone to CT @ this time.
--- NOTE | 2022-10-16 20:03 | HMH.EDFALL ---
Discharge Plan Disposition Patient Disposition: Home, Self-Care Prescriptions Prescriptions: No Action montelukast 10 mg tablet 10 mg PO HS finasteride 5 mg tablet 5 mg PO DAILY terazosin 10 mg capsule 10 mg PO DAILY sevelamer carbonate 800 mg tablet 800 mg PO DAILY levothyroxine 75 mcg tablet 50 mcg PO DAILY carvedilol 25 mg tablet See Rx Instructions .ROUTE .COMPLEX Rx Instructions: 25 mg orally ON NON-DIALYSIS DAYS // hydralazine 25 mg tablet See Rx Instructions .ROUTE .COMPLEX Rx Instructions: 25 mg orally 25 MG X2 TABLETS ON //SUN 25 X1 TABLET // ursodiol 300 mg capsule 300 mg PO DAILY Qty: 60 calcitriol 0.25 mcg capsule 0.25 mcg PO DAILY Label Comments: TAKE 1 CAPSULE BY MOUTH ON Sunday AND SUNDAY furosemide 40 mg tablet 40 mg PO DAILY Label Comments: TAKE 1 TO 2 TABLETS BY MOUTH DAILY FOR SWELLING paroxetine HCl 20 mg tablet 20 mg PO DAILY amlodipine 5 mg tablet 5 mg PO MONTHLY cyanocobalamin (vitamin B-12) 1,000 MCG tablet 1,000 mcg PO DAILY ascorbic acid-ascorbate sodium 500 mg wafer 1,000 mg PO DAILY cholecalciferol (vitamin D3) 25 mcg (1,000 unit) tablet 5,000 unit PO DAILY Clinical Impressions Clinical Impression: Fall, ESRD (end stage renal disease) on dialysis, Closed rib fracture, Closed pelvic fracture, Mediastinal adenopathy, Angiomyolipoma of left kidney Instructions Patient Instructions: DI for Pelvic Fracture, DI for Rib Fracture Discharge ED Provider: Jose RappED)Avinash Fall HPI General Chief Complaint: Fall Stated Complaint: fall Time Seen by Provider: 10/16/22 20:03 Mode of Arrival: EMS Source of Information: EMS Limitations: No Limitations Description of Symptoms (Recalled from ER Triage Doc. by RN): pt states was in kitchen and lost footing and fell. pt denies hitting head. pt c/o lt side rib pain and lt hip pain. History of Present Illness HPI Narrative: trip type injury at home with lt rib and hip pain - no loc and has hx of esrd on dialysis MD complaint: fall Onset (ago): hour(s) Fall from: standing Fall witnessed: no Place fall occurred: home Loss of consciousness: none Prolonged down time: no Symptoms prior to fall: none Context: tripped/slipped Location of injury: head, chest and pelvis Location of injury - extremities: Left: thigh Severity: moderate Associated symptoms (after fall): denies Related Data Home Medications Medication Instructions Recorded Confirmed finasteride 5 mg tablet 5 mg PO DAILY prostate 10/16/17 08/31/22 montelukast 10 mg tablet 10 mg PO HS allergies 10/16/17 08/31/22 cyanocobalamin (vitamin B-12) 1,000 mcg PO DAILY Supplement 11/26/18 08/31/22 1,000 mcg tablet ascorbic acid-ascorbate sodium 1,000 mg PO DAILY Supplement 09/24/19 08/31/22 (vitamin C) 500 mg oral wafer calcitriol 0.25 mcg capsule 0.25 mcg PO DAILY hypocalcemia 09/24/19 08/31/22 ursodiol 300 mg capsule 300 mg PO DAILY urine #60 caps 09/24/19 08/31/22 cholecalciferol (vitamin D3) 25 5,000 unit PO DAILY Supplement 11/23/20 08/31/22 mcg (1,000 unit) tablet sevelamer carbonate 800 mg tablet 800 mg PO DAILY hypocalcemia 02/22/21 08/31/22 furosemide 40 mg tablet 40 mg PO DAILY blood pressure 04/19/21 08/31/22 terazosin 10 mg capsule 10 mg PO DAILY High blood pressure 07/19/21 08/31/22 amlodipine 5 mg tablet 5 mg PO MONTHLY HTN 11/15/21 08/31/22 paroxetine HCl 20 mg tablet 20 mg PO DAILY Depression 11/15/21 08/31/22 levothyroxine 75 mcg tablet 50 mcg PO DAILY THYROID 05/19/22 08/31/22 carvedilol 25 mg tablet See Rx Instructions .Route 08/29/22 08/31/22 .COMPLEX DAILY hydralazine 25 mg tablet See Rx Instructions .Route 08/29/22 08/31/22 .COMPLEX HTN Allergies Allergy/AdvReac Type Severity Reaction Status Date / Time levofloxacin Allergy Mild I-HIVES/VICKY Verified 06/21/22 13:56 H sulfamethoxazole Neal
--- NOTE | 2022-10-16 20:04 | CT_ITS ---
PROCEDURE INFORMATION: Exam: CT Chest Without Contrast; Diagnostic Exam date and time: 10/16/2022 8:20 PM Age: 82 years old Clinical indication: Injury or trauma; Fall; Blunt trauma (contusions or hematomas); Additional info: Fall-- did 3d CT images for rib protocol to check for rib fractures TECHNIQUE: Imaging protocol: Diagnostic computed tomography of the chest without contrast. 3D rendering (Not supervised by radiologist): MIP and/or 3D reconstructed images were created by the technologist. Radiation optimization: All CT scans at this facility use at least one of these dose optimization techniques: automated exposure control; mA and/or kV adjustment per patient size (includes targeted exams where dose is matched to clinical indication); or iterative reconstruction. Other protocol: This patient has received 2 known CTs and 0 known cardiac nuclear medicine studies in the 12 months prior to the current study. COMPARISON: CR XR CHEST PORTABLE 10/16/2022 8:15 PM FINDINGS: Tubes, catheters and devices: Findings incompletely visualized secondary to scan design. Lungs: Patchy regions of bibasilar interstitial infiltrates as well as subsegmental atelectasis right lung base. Pleural spaces: Small small-moderate bilateral pleural effusions. Heart: mitral annulus calcification. Cardiomegaly. Coronary arteries: Extensive regions of coronary artery disease. Lymph nodes: Extensive mediastinal adenopathy in the pretracheal space measuring up to 1.5 cm in transverse dimensions as well as AP window adenopathy measuring up to 9 mm. Additional smaller lymph nodes demonstrated. Vasculature: Unremarkable. No aortic aneurysm. Gallbladder and bile ducts: Cholecystectomy. Thoracic spondylosis with multilevel disc degeneration. Kidneys and ureters: 3 cm cyst lower pole right kidney. Small predominantly fatty mass arising from the posterior aspect upper pole left kidney measuring 9 mm in maximum dimensions. Probable angiomyolipoma. Consider follow-up if appropriate with pre and postcontrast imaging of the abdomen. Bones/joints: Nondisplaced fractures left 7th and 8th ribs. Soft tissues: Unremarkable. IMPRESSION: 1. Nondisplaced fractures left 7th and 8th ribs. 2. Small small-moderate bilateral pleural effusions. 3. Patchy regions of bibasilar interstitial infiltrates as well as subsegmental atelectasis right lung base. 4. Extensive mediastinal adenopathy measuring up to 1.5 cm. Clinically correlate. Etiology uncertain. 5. 3 cm cyst lower pole right kidney. Bosniak 2 6. Small predominantly fatty mass arising from the posterior aspect upper pole left kidney measuring 9 mm in maximum dimensions. Probable angiomyolipoma. Consider follow-up if appropriate with pre and postcontrast imaging of the abdomen. COMMENTS: Consistent with the [employer]'s Incidental Findings Committee white paper (J Am Sadaf Radiol 2018): Any incidental renal lesion less than 1 cm or classified as too small to characterize, or any incidental cystic renal lesion characterized as simple-appearing, is likely benign. No follow-up imaging is recommended for these lesions per consensus recommendations based on imaging criteria.
[2022-10-16 20:21] LABS: Basophils # 0.1 K/mm3 (0-0.2); Basophils % 0.6 % (0.1-2.0); Eosinophils # 0.3 K/mm3 (0.0-0.4); Hematocrit 30.3 % (42.0-52.0); Hemoglobin 9.8 g/dL (14.1-18.0); Lymphocytes # 1.4 K/mm3 (0.7-4.5); Mean Corpuscular HGB Conc 32.4 g/dL (31.8-35.4); Mean Corpuscular Hemoglobin 31.3 pg (27.0-31.2); Mean Corpuscular Volume 96.7 fl (80-94); Mean Platelet Volume 8.8 fl (7.4-10.4); Monocytes # 0.3 K/mm3 (0.1-1.0); Monocytes % 3.7 % (1.7-9.3); Neutrophils # 6.6 K/mm3 (1.8-7.8); Neutrophils % 76.7 % (37.0-80.0); Platelet Count 141 K/mm3 (142-424); Red Blood Count 3.14 M/mm3 (4.60-6.20); Red Cell Distribution Width 14.9 % (11.5-17.5); White Blood Count 8.5 K/mm3 (4.8-10.8)
[2022-10-16 20:23] LABS: Chloride 105 mmol/L (98-107); Sodium 141 mmol/L (136-145)
--- NOTE | 2022-10-16 20:23 | PC.NURSE ---
patient back in room @ this time.
[2022-10-16 20:26] LABS: Alanine Aminotransferase 26 U/L (12-78); Albumin Level 3.3 g/dl (3.5-5.0); Albumin/Globulin Ratio 1.2 (1.1-1.8); Alkaline Phosphatase 84 U/L (38-126); Aspartate Amino Transferase 53 U/L (17-59); Bilirubin,Total 0.8 mg/dl (0.2-1.3); Blood Urea Nitrogen 12 mg/dl (9-20); Calcium 8.2 mg/dl (8.4-10.2); Carbon Dioxide 31 mmol/L (22.0-30.0); Creatinine Clearance Estimated 23 mL/min (50-200); Estimated Glomerular Filt Rate 24 ml/min (>60); GFR (African American) 29 ML/MIN (>60); Globulin 2.7 g/dL (1.3-3.2); Glucose 192 mg/dl (74-100)
[2022-10-16 20:30] VITALS: BP 159/72; PULSE 83; O2SAT 93
[2022-10-16 20:38] LABS: Troponin I 0.07 ng/ml (0.00-0.034)
[2022-10-16 20:52] LABS: Microscopic, Urine URINE MICROSCOPIC (MICROSCOPIC)
[2022-10-16 20:55] LABS: Appearance,Urine CLEAR (Clear); Bilirubin,Urine Negative (Negative); Blood, Urine Negative (Negative); Color,Urine YELLOW (Yellow); Glucose,Urine (UA) Negative (Negative); Ketones,Urine Negative (Negative); Leukocyte Esterase,Urine TRACE (Negative); Nitrate,Urine Negative (Negative); PH,Urine 8.5 (5.0-8.5); Protein,Urine 3+ (Negative); Specific Gravity, Urine 1.015 (1.005-1.030); Urobilinogen,Urine 0.2 EU/dl (0.2)
--- NOTE | 2022-10-16 20:59 | CT_ITS ---
PROCEDURE INFORMATION: Exam: CT Pelvis Without Contrast; Skeletal Exam date and time: 10/16/2022 9:10 PM Age: 82 years old Clinical indication: Injury or trauma; Fall; Blunt trauma (contusions or hematomas); Bilateral; Pelvic region; Prior surgery; Surgery date: 6+ months; Surgery type: Hip and lumbar spine; Patient HX: PT fell, abnormal pelvic film per vrad radiologist. ; Additional info: Fall-abn plain film TECHNIQUE: Imaging protocol: Computed tomography of the pelvis without contrast. Exam focused on the skeleton. 3D rendering (Not supervised by radiologist): MIP and/or 3D reconstructed images were created by the technologist. Radiation optimization: All CT scans at this facility use at least one of these dose optimization techniques: automated exposure control; mA and/or kV adjustment per patient size (includes targeted exams where dose is matched to clinical indication); or iterative reconstruction. Other protocol: This patient has received 3 known CTs and 0 known cardiac nuclear medicine studies in the 12 months prior to the current study. COMPARISON: CR XR PELVIS 1-2V 10/16/2022 8:15 PM FINDINGS: Stomach and bowel: Limited visualization of distal bowel loops in the pelvis significant for colonic diverticulosis. No evidence of diverticulitis. Bones/joints: Acute nondisplaced fracture inferior pubic ramus. This corresponds to findings on the film radiographs. Subtle cortical regularity of the left superior pubic ramus although less well-defined, is also consistent with a nondisplaced fracture. Postoperative changes consistent with previous ORIF left proximal femur partially visualized. Soft tissues: Unremarkable. IMPRESSION: Nondisplaced acute fractures left inferior and superior pubic rami.
[2022-10-16 21:01] VITALS: BP 153/84; PULSE 91; O2SAT 94
[2022-10-16 21:14] LABS: Squamous Epithelial Cell,Urine Occasional #/hpf (0-5); WBC,Urine Occasional #/hpf (0-3)
[2022-10-16 22:50] VITALS: BP 167/79; PULSE 79; RESP 17; TEMP 36.6; O2SAT 97
== END 2022-10-16 22:52 | disposition home or self-care (01) ==
PROVIDERS: Emergency Provider Emergency Medicine; PCP Nurse Practitioner Family
DX: S22.42XA Multiple fractures of ribs, left side, initial encounter for closed fracture (principal); W19.XXXA Unspecified fall, initial encounter; N18.6 End stage renal disease; Z99.2 Dependence on renal dialysis; S32.89XA Fracture of other parts of pelvis, initial encounter for closed fracture; R59.0 Localized enlarged lymph nodes; D17.71 Benign lipomatous neoplasm of kidney; E78.5 Hyperlipidemia, unspecified; I12.0 Hypertensive chronic kidney disease with stage 5 chronic kidney disease or end stage renal disease; E11.22 Type 2 diabetes mellitus with diabetic chronic kidney disease; I73.9 Peripheral vascular disease, unspecified; Z83.3 Family history of diabetes mellitus
CPT/HCPCS: 70450; 71045; 71250; 72125; 72170; 72192; 80053; 81001; 84484; 85025; 93005; 99285

== ENCOUNTER → 2023-02-16 00:23 | Outpatient (CLI) | payer MEDICARE, MEDICAID, SELFPAY ==
[2023-02-16 00:33] LABS: Microscopic, Urine URINE MICROSCOPIC (MICROSCOPIC)
[2023-02-16 00:49] LABS: Appearance,Urine TURBID (Clear); Bilirubin,Urine Negative (Negative); Blood, Urine 3+ (Negative); Color,Urine BROWN (Yellow); Glucose,Urine (UA) Negative (Negative); Ketones,Urine Negative (Negative); Leukocyte Esterase,Urine 2+ (Negative); Nitrate,Urine Negative (Negative); PH,Urine 7.5 (5.0-8.5); Protein,Urine 3+ (Negative); Urobilinogen,Urine 0.2 EU/dl (0.2)
[2023-02-16 00:50] LABS: Amorphous Sediment,Urine Trace /lpf; Bacteria,Urine 3+ /lpf; RBC,Urine TNTC #/hpf (0-3); Squamous Epithelial Cell,Urine Occasional #/hpf (0-5); WBC,Urine TNTC #/hpf (0-3)
[2023-02-16 00:51] LABS: Mucus,Urine 4+ /lpf
== END ==
PROVIDERS: PCP Family Medicine; Visit Provider Family Medicine
DX: N39.0 Urinary tract infection, site not specified (principal); B96.4 Proteus (mirabilis) (morganii) as the cause of diseases classified elsewhere
CPT/HCPCS: 81001; 87086; 87088; 87186

== ENCOUNTER → 2023-03-08 19:00 | Outpatient (CLI) | payer MEDICARE, SELFPAY ==
[2023-03-08 19:37] LABS: Microscopic, Urine URINE MICROSCOPIC (MICROSCOPIC)
[2023-03-08 21:30] LABS: Appearance,Urine SL CLOUDY (Clear); Bilirubin,Urine Negative (Negative); Blood, Urine 3+ (Negative); Color,Urine BROWN (Yellow); Glucose,Urine (UA) Negative (Negative); Ketones,Urine Negative (Negative); Leukocyte Esterase,Urine 3+ (Negative); Nitrate,Urine Negative (Negative); PH,Urine 7.5 (5.0-8.5); Protein,Urine 2+ (Negative); Specific Gravity, Urine 1.015 (1.005-1.030); Urobilinogen,Urine 0.2 EU/dl (0.2)
[2023-03-08 21:53] LABS: Bacteria,Urine Trace /lpf
== END ==
PROVIDERS: PCP Family Medicine; Visit Provider Family Medicine
DX: N39.0 Urinary tract infection, site not specified (principal); B96.4 Proteus (mirabilis) (morganii) as the cause of diseases classified elsewhere
CPT/HCPCS: 81001; 87086; 87088; 87186

== ENCOUNTER 2023-03-20 17:55 | Emergency (ER) | payer MEDICARE, MEDICAID, SELFPAY ==
[2023-03-20 17:56] VITALS: BP 125/61; PULSE 72; RESP 17; TEMP 36.8; O2SAT 98; BMI 24.2
[2023-03-20 18:00] VITALS: BP 124/54; PULSE 74; RESP 20; O2SAT 97
--- NOTE | 2023-03-20 18:14 | HMH.EDGENADL ---
Discharge Plan Disposition Patient Disposition: Home, Self-Care Condition: Fair Prescriptions Prescriptions: New prednisone 50 mg tablet 50 mg PO DAILY 7 Days Qty: 7 0RF diphenhydramine HCl [Benadryl] 25 mg capsule 25 mg PO Q6H PRN (Reason: allergy symptoms) Qty: 20 0RF No Action quetiapine 25 mg tablet 25 mg PO BID Patient Comments: TAKE 1 TABLET BY MOUTH TWICE DAILY carvedilol 25 mg tablet 25 mg PO BID trazodone 50 mg tablet 50 mg PO HS hydralazine 25 mg tablet 25 mg PO TIDP PRN (Reason: Anxiety) amlodipine 5 mg tablet 5 mg PO DAILY levothyroxine 75 mcg tablet 75 mcg PO DAILY furosemide 20 mg tablet 20 mg PO DAILY mirtazapine 15 mg tablet 15 mg PO HS terazosin 10 mg capsule 10 mg PO DAILY finasteride 5 mg tablet 5 mg PO HS escitalopram oxalate 10 mg tablet 10 mg PO DAILY Patient Comments: TAKE 1 TABLET BY MOUTH ONCE DAILY megestrol 625 mg/5 mL (125 mg/mL) suspension 10 ml PO DAILY sevelamer carbonate 800 mg Tablet 800 mg PO DAILY Referrals Follow up/Referrals: Thang Hou MD [Primary Care Provider] - See instructions Clinical Impressions Clinical Impression: Angioedema Qualifiers: Encounter type: initial encounter Qualified Code(s): T78.3XXA - Angioneurotic edema, initial encounter Instructions Patient Instructions: DI for Angioedema Discharge ED Provider: Alfred Monsalve Adult HPI General Chief complaint: Allergic Reaction Stated complaint: allergic reaction Time Seen by Provider: 03/20/23 18:15 Mode of Arrival: EMS Source of Information: EMS Limitations: Physical Limitations Description of Symptoms (Recalled from ER Triage Doc. by RN): 83 M presents from [facility] for possible allergic reaction. Staff reported to EMS that the patient recently stopped taking Invanz and is now taking Tetracycline. They noticed some swelling and blisters to his lips approximately 3 hours ago. They administered 25mg PO Benadryl. Patient is a/o x3 and he reports his mouth feels funny. Airway is patent, VSS, NAD. On visual assessment, angioedema is present to patient's lips History of Present Illness HPI narrative: This 83-year-old male brought in via EMS from the care home after supposedly at first taking Invanz and now taking tetracycline. The nurse him called EMS because the patient was having swelling of his lips. Patient denies any difficulty swallowing or breathing. Patient denied chest pain or shortness of breath. Related Data Home Medications Medication Instructions Recorded Confirmed amlodipine 5 mg tablet 5 mg PO DAILY High Blood Pressure 03/20/23 03/20/23 carvedilol 25 mg tablet 25 mg PO BID High Blood Pressure 03/20/23 03/20/23 escitalopram oxalate 10 mg tablet 10 mg PO DAILY Psych 03/20/23 03/20/23 finasteride 5 mg tablet 5 mg PO HS BPH 03/20/23 03/20/23 furosemide 20 mg tablet 20 mg PO DAILY Swelling 03/20/23 03/20/23 hydralazine 25 mg tablet 25 mg PO TIDP PRN Anxiety 03/20/23 03/20/23 levothyroxine 75 mcg tablet 75 mcg PO DAILY Thyroid 03/20/23 03/20/23 megestrol 625 mg/5 mL (125 mg/mL) 10 ml PO DAILY Supplement 03/20/23 03/20/23 oral suspension mirtazapine 15 mg tablet 15 mg PO HS Psych 03/20/23 03/20/23 quetiapine 25 mg tablet 25 mg PO BID Psych 03/20/23 03/20/23 sevelamer carbonate 800 mg tablet 800 mg PO DAILY Supplement 03/20/23 03/20/23 terazosin 10 mg capsule 10 mg PO DAILY High Blood Pressure 03/20/23 03/20/23 trazodone 50 mg tablet 50 mg PO HS Insomnia 03/20/23 03/20/23 Previous Rx's Medication Instructions Recorded diphenhydramine HCl 25 mg capsule 25 mg PO Q6H PRN allergy symptoms 03/20/23 (Benadryl) #20 caps prednisone 50 mg tablet 50 mg PO DAILY 7 days #7 tabs 03/20/23 Allergies Allergy/AdvReac Type Severity Reaction Status Date / Time levofloxacin Allergy Mild I-HIVES/VICKY Verified 12/12/22 09:52 H nitrofurantoin Ad
[2023-03-20 18:30] VITALS: BP 130/63; PULSE 75; RESP 20; O2SAT 97
[2023-03-20 19:00] VITALS: BP 121/57; PULSE 74; O2SAT 97
[2023-03-20 19:30] VITALS: BP 132/62; PULSE 73; O2SAT 96
--- NOTE | 2023-03-20 19:42 | PC.NURSE ---
Called [facility] for pt transport back to [place]. Advised they would be here to get pt when they have a truck available.
[2023-03-20 20:21] VITALS: BP 128/60; PULSE 69; RESP 19; TEMP 36.6
== END 2023-03-20 20:19 | disposition home or self-care (01) ==
PROVIDERS: Emergency Provider Emergency Medicine; PCP Family Medicine
DX: T78.3XXA Angioneurotic edema, initial encounter (principal); E11.51 Type 2 diabetes mellitus with diabetic peripheral angiopathy without gangrene; E11.22 Type 2 diabetes mellitus with diabetic chronic kidney disease; I12.0 Hypertensive chronic kidney disease with stage 5 chronic kidney disease or end stage renal disease; N18.6 End stage renal disease; E78.5 Hyperlipidemia, unspecified; Z87.891 Personal history of nicotine dependence; T36.4X5A Adverse effect of tetracyclines, initial encounter
CPT/HCPCS: 96374; 96375; 99284